=== PATIENT | female | born 1945 | race Caucasian/White ===

== ENCOUNTER → 2016-12-26 | Outpatient (CLI) | payer MEDICARE, BC ==
[~2016-12-26] MED LIST: /PREG50CA PO; /WARF25TA PO; ACET500T37 PO; ALBU17IN INH; AMLO5TAB2 PO; ANUC25SU PR; ASPI1TAB PO; CALCTAB54 PO; CICL8KIT3 TOP; COLACE PO; DURE0.055 OP; ESTR625TA PO; EXTR500C4 PO; FLECTOR PATCH TD; FLON0.054; GAVICHW PO; GLUCTAB6 PO; ILEV0.3D OP; LIPI10TA PO; LOSA100T PO; MELA5CAP3 PO; META800T82 PO; MULTTAB4 PO; NABU750T PO; NABUPOW PO; OMEP20CA3 PO; PERCOCET PO; PRAMIPEXOLE PO; PROC2.5C PR; ROXI1TAB2 PO; SINGULAIR PO; TOPR25TA PO; TRAMADOL PO; TRIA25CR TOP; TUMS500C PO; ULTR50TA PO; VENTAER INH; VITA-112 PO; VITA500T53 PO; VITA50TA35 PO; ZYRT10CA PO; [UNRECOGNIZED DRUG - CODE] PO; pain cream TD; vitamin B2 PO
--- NOTE | 2017-01-06 00:18 | ECWPNPC ---
PATIENT NAME: ALEJANDRO VELÁSQUEZ : 1945 GENDER: FEMALE VISIT DATE: 12/26/2016 DISCHARGE DATE: 12/26/16 1107 VISIT LOCKED DATE TIME: PHYSICIAN: BRAULIO NARAYANAN RESOURCE: BRAULIO NARAYANAN REASON FOR APPOINTMENT 1. BACK HISTORY OF PRESENT ILLNESS HISTORY OF PRESENT ILLNESS: HERE FOR F/U AND MANAGEMENT OF CHRONIC LBP. REPORTING AGGREVATION IN LBP PAST 2WKS.HAD >3MOS IMPROVEMENT IN LBP SINCE BILAT. LUMBAR FACET BLOCK IN JULY. RATING PAIN VAS 6/10.CURRENTLY USING LYRICA 50MG TID AND TRAMADOL 50MG 1-2 TAB PRN FOR SEVERE PAIN.FINDS THESE MEDICATION EFFECTIVE AT REDUCING PAIN AND KEEPING HER COMFORTAABLE.MRI L/S SPINE LAST DONE IN 2011 IS REVIEWED. PAIN THE PATIENT DESCRIBES THE PAIN... THE PATIENT DESCRIBES THE PAIN... THE PATIENT DESCRIBES THE PAIN... FALL RISK SCREENING: SCREENING :NO FALLS IN THE PAST YEAR CURRENT MEDICATIONS TAKING AMLODIPINE BESYLATE 5 MG TABLET 1 TABLET ORALLY ONCE A DAY TAKING CLINDAMYCIN HCL 300 MG CAPSULE 1 CAPSULE ORALLY DIRECTED TAKING LIPITOR 20 MG TABLET 1 TABLET ORALLY ONCE A DAY TAKING LOSARTAN POTASSIUM-HCTZ 50-12.5 MG TABLET 1 TABLET ORALLY ONCE A DAY TAKING METAXALONE 800 MG TABLET 1 TABLET ORALLY BEFORE BEDTIME TAKING OMEPRAZOLE 20 MG CAPSULE DELAYED RELEASE 1 TAB ORALLY ONCE DAILY TAKING PRAMIPEXOLE DIHYDROCHLORIDE 0.5 MG TABLET 1 TABLET BEFORE BEDTIME ORALLY ONCE A DAY TAKING PREMARIN 0.625 MG/GM CREAM VAGINAL DAILY TAKING SINGULAIR 10 MG TABLET 1 TABLET IN THE EVENING ORALLY ONCE A DAY TAKING VOLTAREN 1 % GEL TRANSDERMAL DIRECTED TAKING PRISCILLA-CITRATE PLUS VITAMIN D 650..500 TABLET 2 TABLETS ORALLY BID TAKING ZYRTEC 10 MG TABLET 1 TABLET ORALLY ONCE A DAY TAKING COLACE 100 MG CAPSULE 1 CAPSULE NEEDED ORALLY ONCE A DAY TAKING MELATONIN 3 MG TABLET 1 TABLET AT BEDTIME NEEDED WITH FOOD ORALLY ONCE A DAY TAKING VITAMIN B-2 25 MG TABLET 2 ORALLY BID TAKING VITAMIN D-3 1000 UNIT CAPSULE 1 CAPSULE ORALLY ONCE A DAY TAKING VITAMIN B 12 250 MCG 2 TABLET ORALLY ONCE DAILY, NOTES: 07/23/16@0900 TAKING ALBUTEROL-IPRATROPIUM 2.5-0.5 MG/3ML SOLUTION 3 ML INHALATION FOUR TIMES A DAY TAKING ANUCORT-HC 25 MG SUPPOSITORY 1 SUPPOSITORY RECTAL TWICE A DAY NEEDED TAKING FLUTICASONE PROPIONATE 50 MCG/ACT SUSPENSION 1 SPRAY IN EACH NOSTRIL NASALLY ONCE A DAY NEEDED TAKING VENTOLIN HFA 108 (90 BASE) MCG/ACT AEROSOL SOLUTION 2 PUFFS NEEDED INHALATION EVERY 4 HRS TAKING PROCTOSOL HC 2.5 % CREAM 1 APPLICATION TO AFFECTED AREA RECTAL TWICE A DAY NEEDED, NOTES: 2 WEEKS AGO TAKING TRIAMCINOLONE ACETONIDE 0.1 % CREAM 1 APPLICATION TO AFFECTED AREA EXTERNALLY TWICE A DAY NEEDED TAKING GAVISCON 80-20 MG TABLET CHEWABLE 2 TABLETS AFTER MEALS AND AT BEDTIME NEEDED ORALLY FOUR TIMES A DAY, NOTES: 2 WEEKS AGO TAKING TYLENOL EXTRA STRENGTH 500 MG TABLET 2 TABLETS NEEDED ORALLY EVERY 6 HRS NEEDED, NOTES: 1 WEEK AGO TAKING GLUCOSAMINE CHONDR 500 COMPLEX - CAPSULE ORALLY BID, NOTES: 07/23/16@2200 TAKING ONDANSETRON HCL 8 MG TABLET 1 TABLET ORALLY TID PRN, NOTES: 4-5 DAYS AGO TAKING LYRICA 50 MG CAPSULE 1 CAPSULE ORALLY Q8H TID MDD3 3 MOS SUPPLY CAT D CHRONIC PAIN, NOTES: 07/24/16@0700 TAKING TRAMADOL HCL 50 MG TABLET 1 ORALLY Q6H PRN PAIN MDD4,3MOS SUPPLY CATD CHRONIC PAIN, NOTES: 07/23/16@1200 TAKING LYRICA 50 MG CAPSULE 1 CAPSULE ORALLY THREE TIMES A DAY TAKING QVAR 80 MCG/ACT AEROSOL SOLUTION 1 PUFF INHALATION TWICE A DAY NOT-TAKING TRAMADOL HCL 50 MG TABLET 1 TABLET NEEDED ORALLY EVERY 6 HRS PRN MDD4 NOT-TAKING VALIUM 10 MG TABLET 1 ORALLY 1 TAB 1HR PRE PROC. MDD1, NOTES: 07/24/16@0930 NOT-TAKING OXYCODONE HCL 5 MG TABLET 2 ORALLY 2 TAB 1HR PRE PROC. MDD2, NOTES: 07/24/16@0930 MEDICATION LIST REVIEWED AND RECONCILED WITH THE PATIENT PAST MEDICAL HISTORY HTN HYPERCHOLESTREMIA FIBROMYALGIA RESTLESS LEG SYNDROME OSTEOARTHRITIS SEASONAL ALLERGIES ALLERGIES PENICILLIN (FOR ALLERGIES USE ONLY): HIVES BELLARGAL: RASH BETA JEANNE (FOR ALLERGIES USE ONLY): DYSPNEA CORTICOSTEROIDS SUPPORT: CONTRAINDICATION ERGOT ALKALOIDS: NAUSEA/VOMITING SURGICAL HISTORY TUBALIGATION 03/17/75 OVARIAN CYST 02/28/81 LAPROSCOPY,LAPAROTOMY ,BILATERAL CSTECTOMY 07/09/93 EUA,COLPOSCOPY, LASER VAORIZATION OF THE VAGINA 06/22/98 EUA COLPOOSCOPY, REMOVAL OF VAGINAL CUFF &REPAIR 03/22/99 GALL BLADDER REMOVAL 05/21 ARTHROSCOPIC KNEE SURGERY 12/24 TOTAL RIGHT KNEE REPLACEMENT 03/11/13 HOSPITALIZATION/MAJOR DIAGNOSTIC PROCEDURE [place], HEART ATTACK CAUSED BY STRESS 2013 HYPERTENSION 10/2015 BRONCHITIS & PNEUMO 10/2016 REVIEW OF SYSTEMS CONSTITUTIONAL: ANY CHANGE IN YOUR MEDICAL CONDITION? NO. PT REPORTS LUMBAR FACET BLOCK 09/2015 WITH COMPLETE PAIN RELIEF X 4 MONTHS. PT REPORTS PAIN HAS INCREASED OVER TIME TO 01/24. . CHILLS NO . FEVER NO . INFECTION: DO YOU HAVE NEW INFECTIONS? NO . DO YOU HAVE HISTORY OF MRSA? NO . MUSCULOSKELETAL: ANY NEW PATTERNS OF PAIN OR NUMBNESS? NO . GASTROENTEROLOGY: ANY NEW CHANGE IN BOWEL CONTROL? NO . GENITOURINARY: ANY NEW CHANGE IN BLADDER CONTROL? NO . IS THERE A CHANCE YOU COULD BE ? NO . HEMATOLOGY/LYMPH: DO YOU TAKE ANY BLOOD THINNERS? (FOR EXAMPLE- COUMADIN, PLAVIX, AGGRENOX, PLATEL, PRADAXA, OR XARELTO) NO . WHEN WAS YOUR LAST DOSE? DATE: TIME: . NEUROLOGY: HAVE YOU FALLEN IN THE PAST 6 MONTHS? NO . ANY NEW EXTREMITY NUMBNESS OR WEAKNESS? NO . CARDIOLOGY: DO YOU HAVE A PACEMAKER OR DEFIBRILLATOR? NO . RESPIRATORY: HAVE YOU BEEN SICK IN THE PAST WEEK? NO . FEVER NO . FLU LIKE SYMPTOMS? NO . COUGH NO . INTEGUMENTARY: DO YOU HAVE ANY RASHES OR OPEN SORES? NO . ALLERGIC/IMMUNO: ARE YOU ALLERGIC TO SHELLFISH OR IV DYE? NO . ANY NEW ALLERGIES? NO . PSYCHIATRIC: DO YOU HAVE THOUGHTS OF HURTING YOURSELF OR SOMEONE ELSE? NO . ARE YOU ABUSED, NEGLECTED, OR IN AN UNSAFE ENVIRONMENT? NO . ENDOCRINOLOGY: ARE YOU DIABETIC? NO . OTHER: DO YOU NEED ANY PRESCRIPTIONS? YES . IF YES, PLEASE LIST: TRAMADOL . ANY NEW PROBLEMS WITH YOUR MEDICATIONS? NO . WHEN DID YOU LAST EAT? ____ . WHEN DID YOU LAST DRINK? ____ . WHAT DID YOU LAST DRINK? ____ . NAME OF PERSON DRIVING YOU HOME? ____ . DO YOU HAVE ANY OTHER QUESTIONS OR CONCERNS NO . REVIEWED BY: PROVIDER: BRAULIO RIZO . VITAL SIGNS WT 136.0 LBS, HT 62 IN, BMI 24.87 INDEX, BP 143/69 MM HG, HR 70 /MIN, RR 16 /MIN, TEMP 98.5 F, OXYGEN SAT % 97%, NA INITIALS TL 1016. EXAMINATION GENERAL EXAMINATION: LUNGS:LUNG SOUNDS ARE CLEAR. HEART:HEART RATE REGULAR. MUSCULOSKELETAL:*, MUSCLE STRENGTH TESTING 5/5 BILATERAL., PALPATION: MILD DISCOMFORT OVER L/S SPINE. POSITIVE FOR PAIN OVER L/S PARSPINALS/FACETS. DIAGNOSTIC:MRI-L/S-2011-DISC DISPLACEMENT L2/3 AND L3/4.L4/5 BULGING DISC W CENTRAL STENOSIS -MILD.. ASSESSMENTS LUMBOSACRAL SPONDYLOLYSIS - M43.07 (PRIMARY) CHRONIC PRESCRIPTION OPIATE USE - Z79.891 OTHER CHRONIC PAIN - G89.29 PAIN IN THORACIC SPINE - M54.6 TREATMENT LUMBOSACRAL SPONDYLOLYSIS CONTINUE LYRICA CAPSULE, 50 MG, 1 CAPSULE, ORALLY, THREE TIMES A DAY CONTINUE TRAMADOL HCL TABLET, 50 MG, 1 TABLET NEEDED, ORALLY, EVERY 6 HRS PRN MDD4 [facility] MRI SPINE, L.S. WITHOUT [id number] [facility] MRI SPINE,THORACIC WITHOUT [id number] PROCEDURE CODES FA211 ESTABILISHED PATIENT [facility] FACILITY CHARGE G8730 PAIN ASSESS POS TOOL F/U PLAN DOC G8427 DOC MEDS VERIFIED W/PT OR RE DISPOSITION & COMMUNICATION FOLLOW UP 2 WEEKS (REASON: MRI THORACIC AND LUMBAR) ELECTRONICALLY SIGNED BY DARRIUS OKEEFE ON 01/05/2017 AT 09:32 AM EDT DISCLAIMER : THIS IS A VISIT SUMMARY EXTRACTED FROM THE [employer] CHART. IT IS NOT A COPY OF THE [employer] PROGRESS NOTE. MERRILL
== END ==
LOC: M PAIN 10:00
PROVIDERS: ATTEND Nurse Practitioner Family
DX: G89.29 Other chronic pain (principal); M43.07 Spondylolysis, lumbosacral region; M54.6 Pain in thoracic spine; I10 Essential (primary) hypertension; E78.00 Pure hypercholesterolemia, unspecified; M79.7 Fibromyalgia; G25.81 Restless legs syndrome; M19.90 Unspecified osteoarthritis, unspecified site; J30.2 Other seasonal allergic rhinitis; Z88.0 Allergy status to penicillin; Z88.8 Allergy status to other drugs, medicaments and biological substances; Z79.51 Long term (current) use of inhaled steroids; Z79.891 Long term (current) use of opiate analgesic; Z79.899 Other long term (current) drug therapy

== ENCOUNTER → 2016-12-30 | Outpatient (CLI) | payer MEDICARE, BC ==
--- NOTE | 2016-12-30 16:43 | REP ---
MRI THORACIC SPINE WITHOUT CONTRAST: 12/30/2016. Comparison: X-ray 06/25/2011. Clinical history: Back pain. Technique sagittal T1, T2 and STIR images with axial T1 sequences. A marker placed at T2-T3 level, position confirmed by cervical thoracic underwriting technician. The sagittal images show a normal gentle thoracic kyphosis. Vertebral body heights and marrow signal are normal throughout the disc space heights show only minimal narrowing of some upper thoracic levels, particularly TE 04/05 with loss of disc water signal from T1-2 through T8-9, less at T9-10 and T10-11. No intrinsic signal abnormality, syrinx, atrophy or mass in the cord. Conus terminates at T12. From C7-T1 through T12-L1. There was no disc bulge herniation and no spinal or foraminal stenosis. No intrinsic cord signal abnormality, syrinx, atrophy or mass. Impression: 1. Minimal degenerative changes with disc desiccation and disc space narrowing without disc bulge herniation and no spinal or foraminal stenosis. 2. No compression deformity in the spine. Signed by Issac Juan MD 12/30/2016 04:35 P
--- NOTE | 2016-12-30 17:08 | REP ---
MRI LUMBAR SPINE WITHOUT CONTRAST: 12/30/2016: CLINICAL HISTORY: Low back pain. Lumbosacral spondylosis. COMPARISON: 02/06/2012 MRI, 12/31/2011 x-ray. TECHNIQUE: Sagittal T1, T2 and STIR images with axial T1-T2 sequences provided. FINDINGS: The normal gentle lordosis lumbar spine is maintained on the sagittal images. There is discogenic endplate change and disc space narrowing at L2-3 and L4-5 with the other vertebral bodies showing normal marrow signal throughout. There is slight narrowing at the L1-2 and L3-4 level. All lumbar levels show loss of disc water signal. The L5-S1 disc height is normal. T11-12 and T12-L1 disc levels are intact. Conus terminates midbody of L1. The T11-12, T12-L1 and L1-2 disc levels show no disc bulge herniation and no spinal or foraminal stenosis. At L2-3 there is a broad-based disc bulge extending into the foramina. No nerve root compression in those foramina. Some posterior osteophytic ridging is noted on the sagittal images. All this is unchanged. At L3-4 there is a mild disc bulge with some ligamentum flavum and facet hypertrophy. There is some loss of perineural fat on the left compared to the right, but no nerve root compression of the L3 roots. At L4-L5 broad-based disc bulge with ligamentum flavum and facet hypertrophy. Marginal osteophytes are also noted, left greater than right. There is foraminal encroachment of the L4 root with some compression in the foramina and the left foramen of that root while the right foramen shows slight loss of perineural fat but no nerve root compression. L5, S1, there is mild broad-based disc bulge, ligamentum and facet hypertrophy. I do not see nerve root compression. The loss of perineural fat on both sides is evident and stable. No prevertebral soft tissue mass or other significant findings. IMPRESSION: 1. Degenerative disc disease and central canal with disc bulging with disc osteophyte complex at L4-5 and bilateral foraminal disc bulges with nerve root compression of the left L4 nerve root with a right marginally adequate. 2. The L2-3, L3-4, and L5-S1 levels also show disc bulges without significant central canal stenosis. Foramina are adequate. Signed by Issac Juan MD 12/31/2016 12:24 P
== END ==
LOC: M RAD 15:12
PROVIDERS: ATTEND Nurse Practitioner Family
DX: M48.07 Spinal stenosis, lumbosacral region (principal); M51.26 Other intervertebral disc displacement, lumbar region; M51.27 Other intervertebral disc displacement, lumbosacral region; M51.34 Other intervertebral disc degeneration, thoracic region

== ENCOUNTER → 2016-12-31 | Outpatient (CLI) | payer MEDICARE, BC ==
--- NOTE | 2017-01-21 01:38 | ECWPNPC ---
PATIENT NAME: ALEJANDRO VELÁSQUEZ : 1945 GENDER: FEMALE VISIT DATE: 12/31/2016 DISCHARGE DATE: 12/31/16 1436 VISIT LOCKED DATE TIME: PHYSICIAN: BRAULIO NARAYANAN RESOURCE: BRAULIO NARAYANAN REASON FOR APPOINTMENT 1. POST MRI HISTORY OF PRESENT ILLNESS HISTORY OF PRESENT ILLNESS: HERE TO REVIEW MRI L/S SPINE AND THORACIC SPINE.SHOWING MILD DEGENERATIVE CHANGES OVER THORACIC AND MODERATE FACET ARTHROPATHY OVER L/S SPINE.RATING PAIN VAS 7/10.DESCRIBES PAIN CONSTANT ACHING ACROSS LOW BACK.PAIN IS AGGREVATED BY PROLONGED SITTING AND STANDING.RELIEVED SOMEWHAT WITH REST.HAS RESPONDED WELL TO THERAPEUTIC FACET BLOCKS IN PAST. PAIN THE PATIENT DESCRIBES THE PAIN... FALL RISK SCREENING: SCREENING :NO FALLS IN THE PAST YEAR CURRENT MEDICATIONS TAKING AMLODIPINE BESYLATE 5 MG TABLET 1 TABLET ORALLY ONCE A DAY TAKING CLINDAMYCIN HCL 300 MG CAPSULE 1 CAPSULE ORALLY DIRECTED TAKING LIPITOR 20 MG TABLET 1 TABLET ORALLY ONCE A DAY TAKING LOSARTAN POTASSIUM-HCTZ 50-12.5 MG TABLET 1 TABLET ORALLY ONCE A DAY TAKING METAXALONE 800 MG TABLET 1 TABLET ORALLY BEFORE BEDTIME TAKING OMEPRAZOLE 20 MG CAPSULE DELAYED RELEASE 1 TAB ORALLY ONCE DAILY TAKING PRAMIPEXOLE DIHYDROCHLORIDE 0.5 MG TABLET 1 TABLET BEFORE BEDTIME ORALLY ONCE A DAY TAKING PREMARIN 0.625 MG/GM CREAM VAGINAL DAILY TAKING SINGULAIR 10 MG TABLET 1 TABLET IN THE EVENING ORALLY ONCE A DAY TAKING VOLTAREN 1 % GEL TRANSDERMAL DIRECTED TAKING PRISCILLA-CITRATE PLUS VITAMIN D 650..500 TABLET 2 TABLETS ORALLY BID TAKING ZYRTEC 10 MG TABLET 1 TABLET ORALLY ONCE A DAY TAKING COLACE 100 MG CAPSULE 1 CAPSULE NEEDED ORALLY ONCE A DAY TAKING MELATONIN 3 MG TABLET 1 TABLET AT BEDTIME NEEDED WITH FOOD ORALLY ONCE A DAY TAKING VITAMIN B-2 25 MG TABLET 2 ORALLY BID TAKING VITAMIN D-3 1000 UNIT CAPSULE 1 CAPSULE ORALLY ONCE A DAY TAKING VITAMIN B 12 250 MCG 2 TABLET ORALLY ONCE DAILY, NOTES: 07/23/16@0900 TAKING ALBUTEROL-IPRATROPIUM 2.5-0.5 MG/3ML SOLUTION 3 ML INHALATION FOUR TIMES A DAY TAKING ANUCORT-HC 25 MG SUPPOSITORY 1 SUPPOSITORY RECTAL TWICE A DAY NEEDED TAKING FLUTICASONE PROPIONATE 50 MCG/ACT SUSPENSION 1 SPRAY IN EACH NOSTRIL NASALLY ONCE A DAY NEEDED TAKING VENTOLIN HFA 108 (90 BASE) MCG/ACT AEROSOL SOLUTION 2 PUFFS NEEDED INHALATION EVERY 4 HRS TAKING PROCTOSOL HC 2.5 % CREAM 1 APPLICATION TO AFFECTED AREA RECTAL TWICE A DAY NEEDED, NOTES: 2 WEEKS AGO TAKING TRIAMCINOLONE ACETONIDE 0.1 % CREAM 1 APPLICATION TO AFFECTED AREA EXTERNALLY TWICE A DAY NEEDED TAKING GAVISCON 80-20 MG TABLET CHEWABLE 2 TABLETS AFTER MEALS AND AT BEDTIME NEEDED ORALLY FOUR TIMES A DAY, NOTES: 2 WEEKS AGO TAKING TYLENOL EXTRA STRENGTH 500 MG TABLET 2 TABLETS NEEDED ORALLY EVERY 6 HRS NEEDED, NOTES: 1 WEEK AGO TAKING GLUCOSAMINE CHONDR 500 COMPLEX - CAPSULE ORALLY BID, NOTES: 07/23/16@2200 TAKING ONDANSETRON HCL 8 MG TABLET 1 TABLET ORALLY TID PRN, NOTES: 4-5 DAYS AGO TAKING LYRICA 50 MG CAPSULE 1 CAPSULE ORALLY Q8H TID MDD3 3 MOS SUPPLY CAT D CHRONIC PAIN, NOTES: 07/24/16@0700 TAKING TRAMADOL HCL 50 MG TABLET 1 ORALLY Q6H PRN PAIN MDD4,3MOS SUPPLY CATD CHRONIC PAIN, NOTES: 07/23/16@1200 TAKING QVAR 80 MCG/ACT AEROSOL SOLUTION 1 PUFF INHALATION TWICE A DAY TAKING LYRICA 50 MG CAPSULE 1 CAPSULE ORALLY THREE TIMES A DAY TAKING TRAMADOL HCL 50 MG TABLET 1 TABLET NEEDED ORALLY EVERY 6 HRS PRN MDD4 NOT-TAKING VALIUM 10 MG TABLET 1 ORALLY 1 TAB 1HR PRE PROC. MDD1, NOTES: 07/24/16@0930 NOT-TAKING OXYCODONE HCL 5 MG TABLET 2 ORALLY 2 TAB 1HR PRE PROC. MDD2, NOTES: 07/24/16@0930 MEDICATION LIST REVIEWED AND RECONCILED WITH THE PATIENT PAST MEDICAL HISTORY HTN HYPERCHOLESTREMIA FIBROMYALGIA RESTLESS LEG SYNDROME OSTEOARTHRITIS SEASONAL ALLERGIES ALLERGIES PENICILLIN (FOR ALLERGIES USE ONLY): HIVES BELLARGAL: RASH BETA JEANNE (FOR ALLERGIES USE ONLY): DYSPNEA CORTICOSTEROIDS SUPPORT: CONTRAINDICATION ERGOT ALKALOIDS: NAUSEA/VOMITING SURGICAL HISTORY TUBALIGATION 03/17/75 OVARIAN CYST 02/28/81 LAPROSCOPY,LAPAROTOMY ,BILATERAL CSTECTOMY 07/09/93 EUA,COLPOSCOPY, LASER VAORIZATION OF THE VAGINA 06/22/98 EUA COLPOOSCOPY, REMOVAL OF VAGINAL CUFF &REPAIR 03/22/99 GALL BLADDER REMOVAL 05/21 ARTHROSCOPIC KNEE SURGERY 12/24 TOTAL RIGHT KNEE REPLACEMENT 03/11/13 HOSPITALIZATION/MAJOR DIAGNOSTIC PROCEDURE [place], HEART ATTACK CAUSED BY STRESS 2013 HYPERTENSION 10/2015 BRONCHITIS & PNEUMO 10/2016 REVIEW OF SYSTEMS CONSTITUTIONAL: ANY CHANGE IN YOUR MEDICAL CONDITION? NO . CHILLS NO . FEVER NO . INFECTION: DO YOU HAVE NEW INFECTIONS? NO . DO YOU HAVE HISTORY OF MRSA? NO . MUSCULOSKELETAL: ANY NEW PATTERNS OF PAIN OR NUMBNESS? NO. PT STATES LAST FACET BLOCK DONE IN 07/2016 GAVE PAIN RELIEF UNTIL 11/2016. CURRENTLY PAIN IS 02/23. . GASTROENTEROLOGY: ANY NEW CHANGE IN BOWEL CONTROL? NO . GENITOURINARY: ANY NEW CHANGE IN BLADDER CONTROL? NO . IS THERE A CHANCE YOU COULD BE ? NO . HEMATOLOGY/LYMPH: DO YOU TAKE ANY BLOOD THINNERS? (FOR EXAMPLE- COUMADIN, PLAVIX, AGGRENOX, PLATEL, PRADAXA, OR XARELTO) NO . WHEN WAS YOUR LAST DOSE? DATE: TIME: . NEUROLOGY: HAVE YOU FALLEN IN THE PAST 6 MONTHS? NO . ANY NEW EXTREMITY NUMBNESS OR WEAKNESS? NO . CARDIOLOGY: DO YOU HAVE A PACEMAKER OR DEFIBRILLATOR? NO . RESPIRATORY: HAVE YOU BEEN SICK IN THE PAST WEEK? NO . FEVER NO . FLU LIKE SYMPTOMS? NO . COUGH NO . INTEGUMENTARY: DO YOU HAVE ANY RASHES OR OPEN SORES? NO . ALLERGIC/IMMUNO: ARE YOU ALLERGIC TO SHELLFISH OR IV DYE? NO . ANY NEW ALLERGIES? NO . PSYCHIATRIC: DO YOU HAVE THOUGHTS OF HURTING YOURSELF OR SOMEONE ELSE? NO . ARE YOU ABUSED, NEGLECTED, OR IN AN UNSAFE ENVIRONMENT? NO . ENDOCRINOLOGY: ARE YOU DIABETIC? NO . OTHER: DO YOU NEED ANY PRESCRIPTIONS? NO . IF YES, PLEASE LIST: ____ . ANY NEW PROBLEMS WITH YOUR MEDICATIONS? NO . WHEN DID YOU LAST EAT? ____ . WHEN DID YOU LAST DRINK? ____ . WHAT DID YOU LAST DRINK? ____ . NAME OF PERSON DRIVING YOU HOME? ____ . DO YOU HAVE ANY OTHER QUESTIONS OR CONCERNS NO . REVIEWED BY: PROVIDER: BRAULIO RIZO . VITAL SIGNS WT 137.0 LBS, HT 62 IN, BMI 25.05 INDEX, BP 125/66 MM HG, HR 75 /MIN, RR 16 /MIN, TEMP 98.1 F, OXYGEN SAT % 93%, SAFE IN ENV? (Y/N) Y, NA INITIALS TL 1338, REVIEWED BY: SHELLIE. EXAMINATION GENERAL EXAMINATION: LUNGS:LUNG SOUNDS ARE CLEAR. HEART:HEART RATE REGULAR. MUSCULOSKELETAL:*, MUSCLE STRENGTH TESTING 5/5 BILATERAL., PALPATION: + FOR PAIN OVER L/S SPINE. + FOR PAIN OVER L/S PARSPINALS. DIAGNOSTIC:MRI-L/U-[id number]-REVIEWED. ASSESSMENTS LUMBOSACRAL SPONDYLOLYSIS - M43.07 (PRIMARY) CHRONIC PRESCRIPTION OPIATE USE - Z79.891 OTHER CHRONIC PAIN - G89.29 PAIN IN THORACIC SPINE - M54.6 TREATMENT LUMBOSACRAL SPONDYLOLYSIS NOTES: I AM GOING TO REQUEST BILATERAL L4/5-L5/S1 THERAPEUTIC LUMBAR FACET BLOCK. PROCEDURE CODES FA211 ESTABILISHED PATIENT [facility] FACILITY CHARGE G8730 PAIN ASSESS POS TOOL F/U PLAN DOC G8427 DOC MEDS VERIFIED W/PT OR RE DISPOSITION & COMMUNICATION FOLLOW UP 2WK POST (REASON: I AM GOING TO REQUEST BILATERAL L4/5-L5/S1 THERAPEUTIC LUMBAR FACET BLOCK) ELECTRONICALLY SIGNED BY DARRIUS OKEEFE ON 01/20/2017 AT 05:13 PM EDT DISCLAIMER : THIS IS A VISIT SUMMARY EXTRACTED FROM THE [employer] CHART. IT IS NOT A COPY OF THE [employer] PROGRESS NOTE. MERRILL
== END ==
LOC: M PAIN 14:00
PROVIDERS: ATTEND Nurse Practitioner Family
DX: G89.29 Other chronic pain (principal); M43.07 Spondylolysis, lumbosacral region; M54.6 Pain in thoracic spine; I10 Essential (primary) hypertension; E78.00 Pure hypercholesterolemia, unspecified; M79.7 Fibromyalgia; G25.81 Restless legs syndrome; M19.90 Unspecified osteoarthritis, unspecified site; J30.2 Other seasonal allergic rhinitis; Z88.5 Allergy status to narcotic agent; Z88.8 Allergy status to other drugs, medicaments and biological substances; Z79.899 Other long term (current) drug therapy

== ENCOUNTER → 2017-01-14 | Outpatient (CLI) | payer MEDICARE, BC ==
[~2017-01-14] MED LIST changes: +BUPIVACAINE HCL 0.25% 30 ML VIAL As Ordered ONE; +ISOVUE-M 300 61% 15ML VIAL (Q9967) As Ordered ONE; +LIDOCAINE 1% SDV INJ 30 ML VIAL As Ordered ONE; +TRIAMCINOLONE ACETONIDE SUSP 40 MG/ML VIAL (J3301) As Ordered ONE; +diazePAM 5 MG TAB As Ordered ONE; +oxyCODONE 5MG TAB As Ordered ONE
--- NOTE | 2017-01-14 17:45 | REP ---
FACET BLOCK: The images were reviewed with Dr. Sesay. The patient has a history of back pain and spondylosis. The portable C-ARM was provided in the OR for Dr. Dejesus for fluoroscopic guidance. 4 intraoperative fluoroscopic spot films were obtained for needle placement verification for bilateral lumbar facet injection. The films are on the PACs system and are available for review. 28 seconds of fluoroscopic time was utilized for this procedure. Reviewed by STEVE Villalobos 01/15/2017 08:28 AEdited and Signed by Nathan Sesay MD 01/15/2017 07:21 P
--- NOTE | 2017-01-18 23:33 | ECWPNPC ---
PATIENT NAME: ALEJANDRO VELÁSQUEZ : 1945 GENDER: FEMALE VISIT DATE: 01/14/2017 DISCHARGE DATE: 01/14/17 1052 VISIT LOCKED DATE TIME: PHYSICIAN: ADRIANA MURRAY RESOURCE: ADRIANA MURRAY REASON FOR APPOINTMENT 1. FACET HISTORY OF PRESENT ILLNESS HISTORY OF PRESENT ILLNESS: PAIN THE PATIENT DESCRIBES THE PAIN... FALL RISK SCREENING: SCREENING :NO FALLS IN THE PAST YEAR CURRENT MEDICATIONS TAKING AMLODIPINE BESYLATE 5 MG TABLET 1 TABLET ORALLY ONCE A DAY, NOTES: 01/13/17@0900 TAKING CLINDAMYCIN HCL 300 MG CAPSULE 1 CAPSULE ORALLY DIRECTED, NOTES: 1 MONTH AGO TAKING LIPITOR 20 MG TABLET 1 TABLET ORALLY ONCE A DAY, NOTES: 01/13/17@0900 TAKING LOSARTAN POTASSIUM-HCTZ 50-12.5 MG TABLET 1 TABLET ORALLY ONCE A DAY, NOTES: 01/13/17@0900 TAKING METAXALONE 800 MG TABLET 1 TABLET ORALLY BEFORE BEDTIME, NOTES: 01/13/17@2200 TAKING OMEPRAZOLE 20 MG CAPSULE DELAYED RELEASE 1 TAB ORALLY ONCE DAILY, NOTES: 0600 TAKING PRAMIPEXOLE DIHYDROCHLORIDE 0.5 MG TABLET 1 TABLET BEFORE BEDTIME ORALLY ONCE A DAY, NOTES: 01/13/17@1800 TAKING SINGULAIR 10 MG TABLET 1 TABLET IN THE EVENING ORALLY ONCE A DAY, NOTES: 01/13/17@0900 TAKING VOLTAREN 1 % GEL TRANSDERMAL DIRECTED, NOTES: 2 DAYS AGO TAKING PRISCILLA-CITRATE PLUS VITAMIN D 650..500 TABLET 2 TABLETS ORALLY BID, NOTES: 01/13/17@0900 TAKING ZYRTEC 10 MG TABLET 1 TABLET ORALLY ONCE A DAY, NOTES: 01/13/17@0900 TAKING COLACE 100 MG CAPSULE 1 CAPSULE NEEDED ORALLY ONCE A DAY, NOTES: 01/13/17@2200 TAKING ALBUTEROL-IPRATROPIUM 2.5-0.5 MG/3ML SOLUTION 3 ML INHALATION FOUR TIMES A DAY, NOTES: 1 YEAR AGO TAKING ANUCORT-HC 25 MG SUPPOSITORY 1 SUPPOSITORY RECTAL TWICE A DAY NEEDED, NOTES: 1 MONTH AGO TAKING FLUTICASONE PROPIONATE 50 MCG/ACT SUSPENSION 1 SPRAY IN EACH NOSTRIL NASALLY ONCE A DAY NEEDED, NOTES: 1 MONTH AGO TAKING VENTOLIN HFA 108 (90 BASE) MCG/ACT AEROSOL SOLUTION 2 PUFFS NEEDED INHALATION EVERY 4 HRS, NOTES: 2 DAYS AGO TAKING PROCTOSOL HC 2.5 % CREAM 1 APPLICATION TO AFFECTED AREA RECTAL TWICE A DAY NEEDED, NOTES: 2 WEEKS AGO TAKING TRIAMCINOLONE ACETONIDE 0.1 % CREAM 1 APPLICATION TO AFFECTED AREA EXTERNALLY TWICE A DAY NEEDED, NOTES: 3 MONTHS AGO TAKING GAVISCON 80-20 MG TABLET CHEWABLE 2 TABLETS AFTER MEALS AND AT BEDTIME NEEDED ORALLY FOUR TIMES A DAY, NOTES: 1 MONTH AGO TAKING TYLENOL EXTRA STRENGTH 500 MG TABLET 2 TABLETS NEEDED ORALLY EVERY 6 HRS NEEDED, NOTES: 2 DAYS AGO TAKING GLUCOSAMINE CHONDR 500 COMPLEX - CAPSULE ORALLY BID, NOTES: 01/13/17@0900 TAKING ONDANSETRON HCL 8 MG TABLET 1 TABLET ORALLY TID PRN, NOTES: 1 MONTH AGO TAKING LYRICA 50 MG CAPSULE 1 CAPSULE ORALLY Q8H TID MDD3 3 MOS SUPPLY CAT D CHRONIC PAIN, NOTES: 01/13/17@2200 TAKING TRAMADOL HCL 50 MG TABLET 1 ORALLY Q6H PRN PAIN MDD4,3MOS SUPPLY CATD CHRONIC PAIN, NOTES: 01/13/17@2199 TAKING QVAR 80 MCG/ACT AEROSOL SOLUTION 1 PUFF INHALATION TWICE A DAY, NOTES: 0700 TAKING LYRICA 50 MG CAPSULE 1 CAPSULE ORALLY THREE TIMES A DAY, NOTES: 01/13/17@2199 NOT-TAKING VALIUM 10 MG TABLET 1 ORALLY 1 TAB 1HR PRE PROC. MDD1, NOTES: 07/24/16@0930 NOT-TAKING OXYCODONE HCL 5 MG TABLET 2 ORALLY 2 TAB 1HR PRE PROC. MDD2, NOTES: 07/24/16@0930 DISCONTINUED PREMARIN 0.625 MG/GM CREAM VAGINAL DAILY DISCONTINUED MELATONIN 3 MG TABLET 1 TABLET AT BEDTIME NEEDED WITH FOOD ORALLY ONCE A DAY DISCONTINUED VITAMIN B-2 25 MG TABLET 2 ORALLY BID DISCONTINUED VITAMIN D-3 1000 UNIT CAPSULE 1 CAPSULE ORALLY ONCE A DAY DISCONTINUED VITAMIN B 12 250 MCG 2 TABLET ORALLY ONCE DAILY, NOTES: 07/23/16@0900 DISCONTINUED TRAMADOL HCL 50 MG TABLET 1 TABLET NEEDED ORALLY EVERY 6 HRS PRN MDD4 MEDICATION LIST REVIEWED AND RECONCILED WITH THE PATIENT PAST MEDICAL HISTORY HTN HYPERCHOLESTREMIA FIBROMYALGIA RESTLESS LEG SYNDROME OSTEOARTHRITIS SEASONAL ALLERGIES ALLERGIES PENICILLIN (FOR ALLERGIES USE ONLY): HIVES BELLARGAL: RASH BETA JEANNE (FOR ALLERGIES USE ONLY): DYSPNEA ERGOT ALKALOIDS: NAUSEA/VOMITING REVIEW OF SYSTEMS CONSTITUTIONAL: ANY CHANGE IN YOUR MEDICAL CONDITION? NO . CHILLS NO . FEVER NO . INFECTION: DO YOU HAVE NEW INFECTIONS? NO . DO YOU HAVE HISTORY OF MRSA? NO . MUSCULOSKELETAL: ANY NEW PATTERNS OF PAIN OR NUMBNESS? NO . GASTROENTEROLOGY: ANY NEW CHANGE IN BOWEL CONTROL? NO . GENITOURINARY: ANY NEW CHANGE IN BLADDER CONTROL? NO . IS THERE A CHANCE YOU COULD BE ? NO . HEMATOLOGY/LYMPH: DO YOU TAKE ANY BLOOD THINNERS? (FOR EXAMPLE- COUMADIN, PLAVIX, AGGRENOX, PLATEL, PRADAXA, OR XARELTO) NO . WHEN WAS YOUR LAST DOSE? DATE: TIME: . NEUROLOGY: HAVE YOU FALLEN IN THE PAST 6 MONTHS? NO . ANY NEW EXTREMITY NUMBNESS OR WEAKNESS? NO . CARDIOLOGY: DO YOU HAVE A PACEMAKER OR DEFIBRILLATOR? NO . RESPIRATORY: HAVE YOU BEEN SICK IN THE PAST WEEK? NO . FEVER NO . FLU LIKE SYMPTOMS? NO . COUGH NO . INTEGUMENTARY: DO YOU HAVE ANY RASHES OR OPEN SORES? NO . ALLERGIC/IMMUNO: ARE YOU ALLERGIC TO SHELLFISH OR IV DYE? NO . ANY NEW ALLERGIES? NO . PSYCHIATRIC: DO YOU HAVE THOUGHTS OF HURTING YOURSELF OR SOMEONE ELSE? NO . ARE YOU ABUSED, NEGLECTED, OR IN AN UNSAFE ENVIRONMENT? NO . ENDOCRINOLOGY: ARE YOU DIABETIC? NO . OTHER: DO YOU NEED ANY PRESCRIPTIONS? NO . IF YES, PLEASE LIST: ____ . ANY NEW PROBLEMS WITH YOUR MEDICATIONS? NO . WHEN DID YOU LAST EAT? ____01/13/17 . WHEN DID YOU LAST DRINK? ____45 . WHAT DID YOU LAST DRINK? ____BLACK COFFEE . NAME OF PERSON DRIVING YOU HOME? ____JORDEN VELÁSQUEZ . DO YOU HAVE ANY OTHER QUESTIONS OR CONCERNS NO . REVIEWED BY: PROVIDER: . VITAL SIGNS WT 137.0 LBS, HT 62 IN, BMI 25.05 INDEX, BP 170/74 MM HG, HR 61 /MIN, RR 16 /MIN, TEMP 98.0 F, OXYGEN SAT % 97%, NA INITIALS SC 09:16, REVIEWED BY: VD. ASSESSMENTS SPONDYLOSIS WITHOUT MYELOPATHY OR RADICULOPATHY, LUMBAR REGION - M47.816 (PRIMARY) SPONDYLOSIS WITHOUT MYELOPATHY OR RADICULOPATHY, LUMBOSACRAL REGION - M47.817 PROCEDURES PN LUMBAR FACET BLOCK THERAPEUTIC PRE PROCEDURE DIAGNOSIS LUMBAR SPONDYLOSIS, LUMBOSACRAL SPONDYLOSIS POST PROCEDURE DIAGNOSIS LUMBAR SPONDYLOSIS, LUMBOSACRAL SPONDYLOSIS PROCEDURE BILATERAL L4 - L5 AND BILATERAL L5-S1 LUMBAR FACET THERAPEUTIC BLOCK SURGEON DR. ADRIANA MURRAY CHAIR PAD MAKER NONE ANESTHESIA LOCAL PRE PROCEDURE NOTE THE PATIENT HAS A HISTORY OF CHRONIC LOW BACK PAIN. I EVALUATE THE PATIENT AND REVIEWED THE CHART. I WENT OVER THE RISKS, ALTERNATIVES, AND BENEFITS ASSOCIATED WITH THIS PROCEDURE. THE PATIENT WOULD LIKE TO PROCEED AND GIVE CONSENT TO PERFORMED THE PROCEDURE. THE PATIENT DENIES UNEXPLAINABLE WEIGHT LOSS, FEVER, CHILLS, OR NEW CHANGES IN URINARY OR BOWEL CONTROL DESCRIPTION OF PROCEDURE THE PATIENT WAS BROUGHT TO THE PROCEDURE ROOM AND PLACED IN THE PRONE POSITION. THE LUMBOSACRAL AREA WAS CLEANED WITH CHLORAPREP SOLUTION AND DRAPED ASEPTICALLY. THE PROCEDURE WAS DONE UNDER STERILE CONDITIONS. I CHECKED LATERALITY AND THE LEVEL WHERE THE PROCEDURE WAS GOING TO BE PERFORMED WITH THE PATIENT AND THE SUPPORTING STAFF AT THE MOMENT OF THE TIME OUT IN THE PROCEDURE ROOM. UNDER FLUOROSCOPIC GUIDANCE, THE TARGET POINT WAS SELECTED AT THE RIGHT AND LEFT L4-L5 AND RIGHT AND LEFT L5-S1 FACET JOINT. TARGET POINT WAS SELECTED AFTER LATERAL ROTATION AND TILT OF THE MAGNIFIER OF THE C-ARM. LIDOCAINE 0.5% WAS USED TO NUMB THE SKIN AND THE SUBCUTANEOUS TISSUE BELOW IT. SPINAL NEEDLES, 22-GAUGE, WERE ADVANCED UNDER FLUOROSCOPIC GUIDANCE AND FOLLOWING PATIENT FEEDBACK UNTIL THE TARGETS WERE TOUCHED. THE POSITION OF THE NEEDLES WAS VERIFIED WITH AP AND LATERAL VIEWS. AFTER PROPER POSITION OF THE NEEDLES WAS ACHIEVED, ISOVUE-M DYE 30% 0.1 ML WAS INJECTED SHOWING ADEQUATE SPREAD OF THE DYE. THEN A SOLUTION OF 1.9 ML OF BUPIVACAINE 0.125% OF KENALOG 10 MG WAS INJECTED AT EACH SITE. THERE WAS NO EVIDENCE OF BLOOD, PARESTHESIA OR CEREBROSPINAL FLUID DURING THE PROCEDURE. THE PATIENT WAS SENT TO THE RECOVERY ROOM. THE PATIENT WAS MOVING THE EXTREMITIES AND DOING WELL. THERE WAS NO COMPLICATION DURING THE PROCEDURE. FLUOROSCOPY TIME WAS 28 SECONDS POST PROCEDURE NOTE THE PATIENT WILL BE SEEN IN A FOLLOW UP IN THE NEXT FEW WEEKS. INSTRUCTIONS WERE GIVEN, QUESTIONS WERE ANSWERED, AND THE PATIENT EXPRESSED UNDERSTANDING AND AGREES WITH THE PLAN. I, DENISHA VILLARREAL, DOCUMENTED THE ABOVE INFORMATION ACTING A SCRIBE FOR DR. MURRAY. I HAVE REVIEWED THE ABOVE DOCUMENT, WRITTEN BY DENISHA BELLAMY AND I VERIFY THAT IT IS ACCURATE DIAGNOSTIC [facility] FACET BLOCK (PAIN)[id number] PROCEDURE CODES 33900 INJ PARAVERT F JNT L/S 1 LEV 84150 INJ PARAVERT F JNT L/S 2 LEV 6045F RADXPS IN END [id number] PXD DISPOSITION & COMMUNICATION FOLLOW UP 3 WEEKS ELECTRONICALLY SIGNED BY ADRIANA MURRAY MD ON 01/18/2017 AT 05:26 PM EDT DISCLAIMER : THIS IS A VISIT SUMMARY EXTRACTED FROM THE [employer] CHART. IT IS NOT A COPY OF THE [employer] PROGRESS NOTE. MTDD
== END ==
LOC: M PAIN 09:00
PROVIDERS: ATTEND Anesthesiology
DX: G89.29 Other chronic pain (principal); M47.816 Spondylosis without myelopathy or radiculopathy, lumbar region; M47.817 Spondylosis without myelopathy or radiculopathy, lumbosacral region; I10 Essential (primary) hypertension; E78.00 Pure hypercholesterolemia, unspecified; M79.7 Fibromyalgia; G25.81 Restless legs syndrome; M19.90 Unspecified osteoarthritis, unspecified site; J30.2 Other seasonal allergic rhinitis; Z88.0 Allergy status to penicillin; Z88.8 Allergy status to other drugs, medicaments and biological substances; Z79.891 Long term (current) use of opiate analgesic; Z79.899 Other long term (current) drug therapy
CPT/HCPCS: 64493; 64494; J3301; Q9967

== ENCOUNTER → 2017-01-28 | Outpatient (CLI) | payer MEDICARE, BC ==
[~2017-01-28] MED LIST changes: -BUPIVACAINE HCL 0.25% 30 ML VIAL As Ordered ONE; -ISOVUE-M 300 61% 15ML VIAL (Q9967) As Ordered ONE; -LIDOCAINE 1% SDV INJ 30 ML VIAL As Ordered ONE; -TRIAMCINOLONE ACETONIDE SUSP 40 MG/ML VIAL (J3301) As Ordered ONE; -diazePAM 5 MG TAB As Ordered ONE; -oxyCODONE 5MG TAB As Ordered ONE
--- NOTE | 2017-01-29 00:59 | ECWPNPC ---
PATIENT NAME: ALEJANDRO VELÁSQUEZ : 1945 GENDER: FEMALE VISIT DATE: 01/28/2017 DISCHARGE DATE: 01/28/17 1038 VISIT LOCKED DATE TIME: PHYSICIAN: BRAULIO NARAYANAN RESOURCE: BRAULIO NARAYANAN REASON FOR APPOINTMENT 1. POST LUMBAR FACET HISTORY OF PRESENT ILLNESS HISTORY OF PRESENT ILLNESS: HERE FOR POST PROCEDURE F/U.HAD BILATERAL L4/5-L5/S1 THERAPEUTIC BLOCK ON 01-14-17.REPORTS >75% IMPROVEMENT IN PAIN THAT CONTINUES TODAY.RATING PAIN VAS0-1/10.USING LYRICA 50MG TID AND TRAMADOL 50MG PRN FOR SEVERE PAIN.FINDS MEDICATION EFFECTIVE AT REDUCING PAIN AND KEEPING HER COMFORTABLE.DENIES SIDE EFFECTS. PAIN THE PATIENT DESCRIBES THE PAIN... FALL RISK SCREENING: SCREENING :NO FALLS IN THE PAST YEAR CURRENT MEDICATIONS TAKING AMLODIPINE BESYLATE 5 MG TABLET 1 TABLET ORALLY ONCE A DAY TAKING CLINDAMYCIN HCL 300 MG CAPSULE 1 CAPSULE ORALLY DIRECTED TAKING LIPITOR 20 MG TABLET 1 TABLET ORALLY ONCE A DAY TAKING LOSARTAN POTASSIUM-HCTZ 50-12.5 MG TABLET 1 TABLET ORALLY ONCE A DAY TAKING METAXALONE 800 MG TABLET 1 TABLET ORALLY BEFORE BEDTIME TAKING OMEPRAZOLE 20 MG CAPSULE DELAYED RELEASE 1 TAB ORALLY ONCE DAILY TAKING PRAMIPEXOLE DIHYDROCHLORIDE 0.5 MG TABLET 1 TABLET BEFORE BEDTIME ORALLY ONCE A DAY TAKING SINGULAIR 10 MG TABLET 1 TABLET IN THE EVENING ORALLY ONCE A DAY TAKING VOLTAREN 1 % GEL TRANSDERMAL DIRECTED TAKING PRISCILLA-CITRATE PLUS VITAMIN D 650..500 TABLET 2 TABLETS ORALLY BID TAKING ZYRTEC 10 MG TABLET 1 TABLET ORALLY ONCE A DAY TAKING COLACE 100 MG CAPSULE 1 CAPSULE NEEDED ORALLY ONCE A DAY TAKING ALBUTEROL-IPRATROPIUM 2.5-0.5 MG/3ML SOLUTION 3 ML INHALATION FOUR TIMES A DAY TAKING ANUCORT-HC 25 MG SUPPOSITORY 1 SUPPOSITORY RECTAL TWICE A DAY NEEDED TAKING FLUTICASONE PROPIONATE 50 MCG/ACT SUSPENSION 1 SPRAY IN EACH NOSTRIL NASALLY ONCE A DAY NEEDED TAKING VENTOLIN HFA 108 (90 BASE) MCG/ACT AEROSOL SOLUTION 2 PUFFS NEEDED INHALATION EVERY 4 HRS TAKING PROCTOSOL HC 2.5 % CREAM 1 APPLICATION TO AFFECTED AREA RECTAL TWICE A DAY NEEDED TAKING TRIAMCINOLONE ACETONIDE 0.1 % CREAM 1 APPLICATION TO AFFECTED AREA EXTERNALLY TWICE A DAY NEEDED TAKING GAVISCON 80-20 MG TABLET CHEWABLE 2 TABLETS AFTER MEALS AND AT BEDTIME NEEDED ORALLY FOUR TIMES A DAY TAKING TYLENOL EXTRA STRENGTH 500 MG TABLET 2 TABLETS NEEDED ORALLY EVERY 6 HRS NEEDED TAKING GLUCOSAMINE CHONDR 500 COMPLEX - CAPSULE ORALLY BID TAKING ONDANSETRON HCL 8 MG TABLET 1 TABLET ORALLY TID PRN TAKING LYRICA 50 MG CAPSULE 1 CAPSULE ORALLY Q8H TID MDD3 3 MOS SUPPLY CAT D CHRONIC PAIN TAKING TRAMADOL HCL 50 MG TABLET 1 ORALLY Q6H PRN PAIN MDD4,3MOS SUPPLY CATD CHRONIC PAIN TAKING QVAR 80 MCG/ACT AEROSOL SOLUTION 1 PUFF INHALATION TWICE A DAY TAKING LYRICA 50 MG CAPSULE 1 CAPSULE ORALLY THREE TIMES A DAY TAKING PREMARIN 0.625 MG/GM CREAM VAGINAL DAILY NOT-TAKING VALIUM 10 MG TABLET 1 ORALLY 1 TAB 1HR PRE PROC. MDD1, NOTES: 07/24/16@0930 NOT-TAKING OXYCODONE HCL 5 MG TABLET 2 ORALLY 2 TAB 1HR PRE PROC. MDD2, NOTES: 07/24/16@0930 MEDICATION LIST REVIEWED AND RECONCILED WITH THE PATIENT PAST MEDICAL HISTORY HTN HYPERCHOLESTREMIA FIBROMYALGIA RESTLESS LEG SYNDROME OSTEOARTHRITIS SEASONAL ALLERGIES ALLERGIES PENICILLIN (FOR ALLERGIES USE ONLY): HIVES BELLARGAL: RASH BETA JEANNE (FOR ALLERGIES USE ONLY): DYSPNEA ERGOT ALKALOIDS: NAUSEA/VOMITING REVIEW OF SYSTEMS CONSTITUTIONAL: ANY CHANGE IN YOUR MEDICAL CONDITION? NO . CHILLS NO . FEVER NO . INFECTION: DO YOU HAVE NEW INFECTIONS? NO . DO YOU HAVE HISTORY OF MRSA? NO . MUSCULOSKELETAL: ANY NEW PATTERNS OF PAIN OR NUMBNESS? NO . GASTROENTEROLOGY: ANY NEW CHANGE IN BOWEL CONTROL? NO . GENITOURINARY: ANY NEW CHANGE IN BLADDER CONTROL? NO . IS THERE A CHANCE YOU COULD BE ? NO . HEMATOLOGY/LYMPH: DO YOU TAKE ANY BLOOD THINNERS? (FOR EXAMPLE- COUMADIN, PLAVIX, AGGRENOX, PLATEL, PRADAXA, OR XARELTO) NO . WHEN WAS YOUR LAST DOSE? DATE: TIME: . NEUROLOGY: HAVE YOU FALLEN IN THE PAST 6 MONTHS? NO . ANY NEW EXTREMITY NUMBNESS OR WEAKNESS? NO . CARDIOLOGY: DO YOU HAVE A PACEMAKER OR DEFIBRILLATOR? NO . RESPIRATORY: HAVE YOU BEEN SICK IN THE PAST WEEK? NO . FEVER NO . FLU LIKE SYMPTOMS? NO . COUGH NO . INTEGUMENTARY: DO YOU HAVE ANY RASHES OR OPEN SORES? NO . ALLERGIC/IMMUNO: ARE YOU ALLERGIC TO SHELLFISH OR IV DYE? NO . ANY NEW ALLERGIES? NO . PSYCHIATRIC: DO YOU HAVE THOUGHTS OF HURTING YOURSELF OR SOMEONE ELSE? NO . ARE YOU ABUSED, NEGLECTED, OR IN AN UNSAFE ENVIRONMENT? NO . ENDOCRINOLOGY: ARE YOU DIABETIC? NO . OTHER: DO YOU NEED ANY PRESCRIPTIONS? NO . IF YES, PLEASE LIST: ____ . ANY NEW PROBLEMS WITH YOUR MEDICATIONS? NO . WHEN DID YOU LAST EAT? ____ . WHEN DID YOU LAST DRINK? ____ . WHAT DID YOU LAST DRINK? ____ . NAME OF PERSON DRIVING YOU HOME? ____ . DO YOU HAVE ANY OTHER QUESTIONS OR CONCERNS NO . REVIEWED BY: PROVIDER: BRAULIO RIZO . VITAL SIGNS WT 140.4 LBS, HT 62 IN, BMI 25.68 INDEX, BP 157/77 MM HG, HR 63 /MIN, RR 16 /MIN, TEMP 97.7 F, OXYGEN SAT % 96%, NA INITIALS TL 1010, REVIEWED BY: NL. EXAMINATION GENERAL EXAMINATION: LUNGS:LUNG SOUNDS ARE CLEAR. HEART:HEART RATE REGULAR. MUSCULOSKELETAL:*, MUSCLE STRENGTH TESTING 5/5 BILATERAL., PALPATION: NEGATIVE FOR PAIN OVER L/S SPINE. NEGATIVE FOR PAIN OVER L/S PARASPINALS. DIAGNOSTIC:MRI-L/S-2011-DISC DISPLACEMENT L2/3 AND L3/4.L4/5 BULGING DISC W CENTRAL STENOSIS -MILD.. ASSESSMENTS LUMBOSACRAL SPONDYLOLYSIS - M43.07 (PRIMARY) TREATMENT LUMBOSACRAL SPONDYLOLYSIS REFILL LYRICA CAPSULE, 50 MG, 1 CAPSULE, ORALLY, Q8H TID MDD3 3 MOS SUPPLY CAT D CHRONIC PAIN, 90 DAY(S), 270, REFILLS 1 CONTINUE TRAMADOL HCL TABLET, 50 MG, 1, ORALLY, Q6H PRN PAIN MDD4,3MOS SUPPLY CATD CHRONIC PAIN PROCEDURE CODES FA211 ESTABILISHED PATIENT [facility] FACILITY CHARGE G8730 PAIN ASSESS POS TOOL F/U PLAN DOC G8427 DOC MEDS VERIFIED W/PT OR RE DISPOSITION & COMMUNICATION FOLLOW UP 3 MONTHS ELECTRONICALLY SIGNED BY DRARIUS OKEEFE ON 01/28/2017 AT 03:32 PM EDT DISCLAIMER : THIS IS A VISIT SUMMARY EXTRACTED FROM THE [employer] CHART. IT IS NOT A COPY OF THE [employer] PROGRESS NOTE. MTDD
== END ==
LOC: M PAIN 10:00
PROVIDERS: ATTEND Nurse Practitioner Family
DX: G89.29 Other chronic pain (principal); M43.07 Spondylolysis, lumbosacral region; I10 Essential (primary) hypertension; E78.00 Pure hypercholesterolemia, unspecified; M79.7 Fibromyalgia; G25.81 Restless legs syndrome; M19.90 Unspecified osteoarthritis, unspecified site; J30.2 Other seasonal allergic rhinitis; Z88.0 Allergy status to penicillin; Z88.8 Allergy status to other drugs, medicaments and biological substances; Z91.048 Other nonmedicinal substance allergy status; Z79.891 Long term (current) use of opiate analgesic; Z79.899 Other long term (current) drug therapy

== ENCOUNTER → 2017-05-21 | Outpatient (CLI) | payer MEDICARE, BC ==
[~2017-05-21] MED LIST changes: +ACET-683 PO; -ACET500T37 PO
--- NOTE | 2017-05-22 00:16 | ECWPNPC ---
PATIENT NAME: ALEJANDRO VELÁSQUEZ : 1945 GENDER: FEMALE VISIT DATE: 05/21/2017 DISCHARGE DATE: 05/21/17 1011 VISIT LOCKED DATE TIME: PHYSICIAN: BRAULIO NARAYANAN RESOURCE: BRAULIO NARAYANAN REASON FOR APPOINTMENT 1. BACK HISTORY OF PRESENT ILLNESS HISTORY OF PRESENT ILLNESS: HERE FOR ROUTINE F/U OF CHRONIC LBP.HAD BILAT. L4/5-L5/S1 THERAPEUTIC BLOCK ON 01-14-17 AND CONTINUES TO BENEFIT TODAY.RATING PAIN VAS 1-2/10.USING TRAMADOL 50MG Q6H PRN FOR SEVERE FLARE UPS,BUT HASNT NEEDED TO TAKE IT MUCH.TAKING LYRICA 50MG TID AND FINDS THIS EFFECTIVE.DENIES SIDE EFFECTS WITH MEDICATION. PAIN THE PATIENT DESCRIBES THE PAIN... FALL RISK SCREENING: SCREENING :NO FALLS IN THE PAST YEAR CURRENT MEDICATIONS TAKING AMLODIPINE BESYLATE 5 MG TABLET 1 TABLET ORALLY ONCE A DAY TAKING CLINDAMYCIN HCL 300 MG CAPSULE 1 CAPSULE ORALLY DIRECTED TAKING LIPITOR 20 MG TABLET 1 TABLET ORALLY ONCE A DAY TAKING LOSARTAN POTASSIUM-HCTZ 50-12.5 MG TABLET 1 TABLET ORALLY ONCE A DAY TAKING METAXALONE 800 MG TABLET 1 TABLET ORALLY BEFORE BEDTIME TAKING OMEPRAZOLE 20 MG CAPSULE DELAYED RELEASE 1 TAB ORALLY TWICE DAILY TAKING PRAMIPEXOLE DIHYDROCHLORIDE 0.5 MG TABLET 1 TABLET BEFORE BEDTIME ORALLY ONCE A DAY TAKING SINGULAIR 10 MG TABLET 1 TABLET IN THE EVENING ORALLY ONCE A DAY TAKING VOLTAREN 1 % GEL TRANSDERMAL DIRECTED TAKING PRISCILLA-CITRATE PLUS VITAMIN D 650..500 TABLET 1 TAB ORALLY ONCE DAILY TAKING ZYRTEC 10 MG TABLET 1 TABLET ORALLY ONCE A DAY TAKING COLACE 100 MG CAPSULE 2 CAPSULES ORALLY ONCE A DAY TAKING ALBUTEROL-IPRATROPIUM 2.5-0.5 MG/3ML SOLUTION 3 ML INHALATION FOUR TIMES A DAY TAKING ANUCORT-HC 25 MG SUPPOSITORY 1 SUPPOSITORY RECTAL TWICE A DAY NEEDED TAKING FLUTICASONE PROPIONATE 50 MCG/ACT SUSPENSION 1 SPRAY IN EACH NOSTRIL NASALLY ONCE A DAY NEEDED TAKING VENTOLIN HFA 108 (90 BASE) MCG/ACT AEROSOL SOLUTION 2 PUFFS NEEDED INHALATION EVERY 4 HRS TAKING PROCTOSOL HC 2.5 % CREAM 1 APPLICATION TO AFFECTED AREA RECTAL TWICE A DAY NEEDED TAKING TRIAMCINOLONE ACETONIDE 0.1 % CREAM 1 APPLICATION TO AFFECTED AREA EXTERNALLY TWICE A DAY NEEDED TAKING GAVISCON 80-20 MG TABLET CHEWABLE 2 TABLETS AFTER MEALS AND AT BEDTIME NEEDED ORALLY FOUR TIMES A DAY TAKING TYLENOL EXTRA STRENGTH 500 MG TABLET 2 TABLETS NEEDED ORALLY EVERY 6 HRS NEEDED TAKING GLUCOSAMINE CHONDR 500 COMPLEX - CAPSULE 1 TAB ORALLY ONCE DAILY TAKING ONDANSETRON HCL 8 MG TABLET 1/2 TABLET ORALLY TID PRN TAKING QVAR 80 MCG/ACT AEROSOL SOLUTION 2 PUFF INHALATION TWICE A DAY TAKING LYRICA 50 MG CAPSULE 1 CAPSULE ORALLY THREE TIMES A DAY TAKING PREMARIN 0.625 MG/GM CREAM VAGINAL DAILY TAKING TRAMADOL HCL 50 MG TABLET 1 ORALLY Q6H PRN PAIN MDD4 TAKING MELATONIN 5 MG TABLET 1 TABLET AT BEDTIME NEEDED WITH FOOD ORALLY ONCE A DAY TAKING SPIRONOLACTONE 25 MG TABLET 1 TABLET ORALLY DAILY TAKING ROGAINE MENS 5 % FOAM EXTERNALLY EVERY 2 DAYS NOT-TAKING LYRICA 50 MG CAPSULE 1 CAPSULE ORALLY Q8H TID MDD3 3 MOS SUPPLY CAT D CHRONIC PAIN NOT-TAKING VALIUM 10 MG TABLET 1 ORALLY 1 TAB 1HR PRE PROC. MDD1, NOTES: 07/24/16@0930 NOT-TAKING OXYCODONE HCL 5 MG TABLET 2 ORALLY 2 TAB 1HR PRE PROC. MDD2, NOTES: 07/24/16@0930 MEDICATION LIST REVIEWED AND RECONCILED WITH THE PATIENT PAST MEDICAL HISTORY HTN HYPERCHOLESTREMIA FIBROMYALGIA RESTLESS LEG SYNDROME OSTEOARTHRITIS SEASONAL ALLERGIES ALLERGIES PENICILLIN (FOR ALLERGIES USE ONLY): HIVES BELLARGAL: RASH BETA JEANNE (FOR ALLERGIES USE ONLY): DYSPNEA ERGOT ALKALOIDS: NAUSEA/VOMITING SOCIAL HISTORY GENERAL: TOBACCO USE ARE YOU A:NONSMOKER RECREATIONAL DRUG USE DRUG USE?NO EXERCISE: WAL[employer], [employer]. [id number] RAST[employer]IAN LANGUAGE LANGUAGES SPOKEN:LUXEMBOURGER LEARNING BARRIERS / SPECIAL NEEDS BARRIERS TO LEARNING?NO HEARING IMPAIRED?NO VISION IMPAIRED?YES :CORRECTIVE LENSES COGNITIVELY IMPAIRED?NO READINESS TO LEARN?YES LEARNING PREFERENCES?NO LEARNING CAPABILITIES PRESENT?YES EMOTIONAL BARRIERS?NO SPECIAL DEVICES?NO PROJECT LEADER NEEDED?NO PAIN CLINIC PFS, CLERGY, PUBLIC HEALTH REFERRALS PFS REFERRAL NEEDED?NO CLERGY REFERRAL NEEDED?NO PUBLIC HEALTH REFERRAL NEEDED?NO HAS THE PATIENT BEEN EDUCATED REGARDING HIS/HER PLAN OF CARE?YES HAS THE PATIENT BEEN EDUCATED REGARDING PAIN, THE RISK FOR PAIN, THE IMPORTANCE OF EFFECTIVE PAIN MANAGEMENT, AND THE PAIN ASSESSMENT PROCESS?YES ADVANCE DIRECTIVES HEALTH CARE PROXY?YES NAME OF HCP LYNDSEY VELÁSQUEZ CONTACT # FOR HCP REVIEW OF SYSTEMS REVIEWED BY: PROVIDER: BRAULIO RIZO . CONSTITUTIONAL: ANY CHANGE IN YOUR MEDICAL CONDITION? NO . CHILLS NO . FEVER NO . INFECTION: DO YOU HAVE NEW INFECTIONS? NO . DO YOU HAVE HISTORY OF MRSA? NO . MUSCULOSKELETAL: ANY NEW PATTERNS OF PAIN OR NUMBNESS? NO . GASTROENTEROLOGY: ANY NEW CHANGE IN BOWEL CONTROL? NO . GENITOURINARY: ANY NEW CHANGE IN BLADDER CONTROL? NO . IS THERE A CHANCE YOU COULD BE ? NO . HEMATOLOGY/LYMPH: DO YOU TAKE ANY BLOOD THINNERS? (FOR EXAMPLE- COUMADIN, PLAVIX, AGGRENOX, PLATEL, PRADAXA, OR XARELTO) NO . WHEN WAS YOUR LAST DOSE? DATE: TIME: . NEUROLOGY: HAVE YOU FALLEN IN THE PAST 6 MONTHS? NO . ANY NEW EXTREMITY NUMBNESS OR WEAKNESS? NO . CARDIOLOGY: DO YOU HAVE A PACEMAKER OR DEFIBRILLATOR? NO . RESPIRATORY: HAVE YOU BEEN SICK IN THE PAST WEEK? NO . FEVER NO . FLU LIKE SYMPTOMS? NO . COUGH NO . INTEGUMENTARY: DO YOU HAVE ANY RASHES OR OPEN SORES? NO . ALLERGIC/IMMUNO: ARE YOU ALLERGIC TO SHELLFISH OR IV DYE? NO . ANY NEW ALLERGIES? NO . PSYCHIATRIC: DO YOU HAVE THOUGHTS OF HURTING YOURSELF OR SOMEONE ELSE? NO . ARE YOU ABUSED, NEGLECTED, OR IN AN UNSAFE ENVIRONMENT? NO . ENDOCRINOLOGY: ARE YOU DIABETIC? NO . OTHER: DO YOU NEED ANY PRESCRIPTIONS? YES . IF YES, PLEASE LIST: TRAMADOL (NOT GONE BUT NOT ENOUGH TO LAST UNTIL NEXT VISIT) . ANY NEW PROBLEMS WITH YOUR MEDICATIONS? NO . WHEN DID YOU LAST EAT? ____ . WHEN DID YOU LAST DRINK? ____ . WHAT DID YOU LAST DRINK? ____ . NAME OF PERSON DRIVING YOU HOME? ____ . DO YOU HAVE ANY OTHER QUESTIONS OR CONCERNS NO . VITAL SIGNS WT 133.0 LBS, HT 62 IN, BMI 24.32 INDEX, BP 144/67 MM HG, HR 65 /MIN, RR 16 /MIN, TEMP 97.6 F, OXYGEN SAT % 95%, NA INITIALS AW 0933, REVIEWED BY: CS. EXAMINATION GENERAL EXAMINATION: LUNGS:LUNG SOUNDS ARE CLEAR. HEART:HEART RATE REGULAR. MUSCULOSKELETAL:*, MUSCLE STRENGTH TESTING 5/5 BILATERAL., PALPATION: NEGATIVE FOR PAIN OVER L/S SPINE. NEGATIVE FOR PAIN OVER L/S PARASPINALS. DIAGNOSTIC:MRI-L/S-2011-DISC DISPLACEMENT L2/3 AND L3/4.L4/5 BULGING DISC W CENTRAL STENOSIS -MILD.. ASSESSMENTS LUMBOSACRAL SPONDYLOLYSIS - M43.07 (PRIMARY) TREATMENT LUMBOSACRAL SPONDYLOLYSIS REFILL TRAMADOL HCL TABLET, 50 MG, 1, ORALLY, Q6H PRN PAIN MDD4, 30 DAY(S), 120, REFILLS 0 CONTINUE LYRICA CAPSULE, 50 MG, 1 CAPSULE, ORALLY, THREE TIMES A DAY PROCEDURE CODES FA211 ESTABILISHED PATIENT [facility] FACILITY CHARGE G8783 BP SCR PRFRM RCMDD DEFIND SCR INTVL G8730 PAIN ASSESS POS TOOL F/U PLAN DOC 3016F PT SCRND UNHLTHY [place] USE 1123F ACP DISCUSS/DSCN MKR DOCD 1036F TOBACCO NON-USER 0518F FALL PLAN OF CARE DOCD G8427 DOC MEDS VERIFIED W/PT OR RE G8420 BMI<30 AND >=22 CALC & DOCU 3288F FALL RISK ASSESSMENT DOCD DISPOSITION & COMMUNICATION FOLLOW UP END JUL/EARLY JUL. ELECTRONICALLY SIGNED BY DARRIUS OKEEFE ON 05/21/2017 AT 10:23 AM EDT DISCLAIMER : THIS IS A VISIT SUMMARY EXTRACTED FROM THE [employer] CHART. IT IS NOT A COPY OF THE [employer] PROGRESS NOTE. MTDD
== END ==
LOC: M PAIN 09:45
PROVIDERS: ATTEND Nurse Practitioner Family
DX: G89.29 Other chronic pain (principal); M43.07 Spondylolysis, lumbosacral region; I10 Essential (primary) hypertension; E78.00 Pure hypercholesterolemia, unspecified; G25.81 Restless legs syndrome; J30.2 Other seasonal allergic rhinitis; Z88.0 Allergy status to penicillin; Z88.8 Allergy status to other drugs, medicaments and biological substances; Z79.891 Long term (current) use of opiate analgesic; Z79.899 Other long term (current) drug therapy

== ENCOUNTER → 2017-07-16 | Outpatient (CLI) | payer MEDICARE, BC ==
--- NOTE | 2017-08-05 02:04 | ECWPNPC ---
PATIENT NAME: ALEJANDRO VELÁSQUEZ : 1945 GENDER: FEMALE VISIT DATE: 07/16/2017 DISCHARGE DATE: 07/16/17 1542 VISIT LOCKED DATE TIME: PHYSICIAN: BRAULIO NARAYANAN RESOURCE: BRAULIO NARAYANAN REASON FOR APPOINTMENT 1. LUMBOSACRAL SPONDYLOLYSIS HISTORY OF PRESENT ILLNESS HISTORY OF PRESENT ILLNESS: HERE OR F/U OF CHRONIC LOW BACK PAIN.RATING PAIN VAS 5/10.DESCRIBES PAIN INTERMITTENT ACHING AND SORE.HAS RESPONDED WELL TO THERAPEUTIC BLOCKS HERE FOR >3 MOS IMPROVEMENT OF >50%.CURRENTLY TAKING TRAMADOL 1 Q8H PRN FOR PAIN AND LYRICA 50MG TID.REPORTS EFECTIVENESS O MEDICATION WITHOUT SIDE EFFETS. PAIN THE PATIENT DESCRIBES THE PAIN... FALL RISK SCREENING: SCREENING :NO FALLS IN THE PAST YEAR CURRENT MEDICATIONS TAKING AMLODIPINE BESYLATE 5 MG TABLET 1 TABLET ORALLY ONCE A DAY TAKING CLINDAMYCIN HCL 300 MG CAPSULE 1 CAPSULE ORALLY DIRECTED TAKING LIPITOR 40 MG TABLET 1 TABLET ORALLY ONCE A DAY TAKING LOSARTAN POTASSIUM-HCTZ 50-12.5 MG TABLET 1 TABLET ORALLY ONCE A DAY TAKING METAXALONE 800 MG TABLET 1 TABLET ORALLY BEFORE BEDTIME TAKING OMEPRAZOLE 20 MG CAPSULE DELAYED RELEASE 1 TAB ORALLY TWICE DAILY TAKING PRAMIPEXOLE DIHYDROCHLORIDE 0.5 MG TABLET 1 TABLET BEFORE BEDTIME ORALLY ONCE A DAY TAKING SINGULAIR 10 MG TABLET 1 TABLET IN THE EVENING ORALLY ONCE A DAY TAKING VOLTAREN 1 % GEL TRANSDERMAL DIRECTED TAKING PRISCILLA-CITRATE PLUS VITAMIN D 650..500 TABLET 1 TAB ORALLY ONCE DAILY TAKING ZYRTEC 10 MG TABLET 1 TABLET ORALLY ONCE A DAY TAKING COLACE 100 MG CAPSULE 2 CAPSULES ORALLY ONCE A DAY TAKING ALBUTEROL-IPRATROPIUM 2.5-0.5 MG/3ML SOLUTION 3 ML INHALATION FOUR TIMES A DAY TAKING ANUCORT-HC 25 MG SUPPOSITORY 1 SUPPOSITORY RECTAL TWICE A DAY NEEDED TAKING FLUTICASONE PROPIONATE 50 MCG/ACT SUSPENSION 1 SPRAY IN EACH NOSTRIL NASALLY ONCE A DAY NEEDED TAKING VENTOLIN HFA 108 (90 BASE) MCG/ACT AEROSOL SOLUTION 2 PUFFS NEEDED INHALATION EVERY 4 HRS TAKING PROCTOSOL HC 2.5 % CREAM 1 APPLICATION TO AFFECTED AREA RECTAL TWICE A DAY NEEDED TAKING TRIAMCINOLONE ACETONIDE 0.1 % CREAM 1 APPLICATION TO AFFECTED AREA EXTERNALLY TWICE A DAY NEEDED TAKING GAVISCON 80-20 MG TABLET CHEWABLE 2 TABLETS AFTER MEALS AND AT BEDTIME NEEDED ORALLY FOUR TIMES A DAY TAKING TYLENOL EXTRA STRENGTH 500 MG TABLET 2 TABLETS NEEDED ORALLY EVERY 6 HRS NEEDED TAKING GLUCOSAMINE CHONDR 500 COMPLEX - CAPSULE 1 TAB ORALLY ONCE DAILY TAKING ONDANSETRON HCL 8 MG TABLET 1/2 TABLET ORALLY TID PRN TAKING QVAR 80 MCG/ACT AEROSOL SOLUTION 2 PUFF INHALATION TWICE A DAY TAKING PREMARIN 0.625 MG/GM CREAM VAGINAL DAILY TAKING MELATONIN 5 MG TABLET 1 TABLET AT BEDTIME NEEDED WITH FOOD ORALLY ONCE A DAY TAKING SPIRONOLACTONE 100 MG TABLET 1 TABLET ORALLY DAILY TAKING TRAMADOL HCL 50 MG TABLET 1 ORALLY Q6H PRN PAIN MDD4 TAKING LYRICA 50 MG CAPSULE 1 CAPSULE ORALLY THREE TIMES A DAY DISCONTINUED ROGAINE MENS 5 % FOAM EXTERNALLY EVERY 2 DAYS UNKNOWN LYRICA 50 MG CAPSULE 1 CAPSULE ORALLY Q8H TID MDD3 3 MOS SUPPLY CAT D CHRONIC PAIN UNKNOWN VALIUM 10 MG TABLET 1 ORALLY 1 TAB 1HR PRE PROC. MDD1, NOTES: 07/24/16@0930 UNKNOWN OXYCODONE HCL 5 MG TABLET 2 ORALLY 2 TAB 1HR PRE PROC. MDD2, NOTES: 07/24/16@0930 MEDICATION LIST REVIEWED AND RECONCILED WITH THE PATIENT PAST MEDICAL HISTORY HTN HYPERCHOLESTREMIA FIBROMYALGIA RESTLESS LEG SYNDROME OSTEOARTHRITIS SEASONAL ALLERGIES ALLERGIES PENICILLIN (FOR ALLERGIES USE ONLY): HIVES BELLARGAL: RASH BETA JEANNE (FOR ALLERGIES USE ONLY): DYSPNEA ERGOT ALKALOIDS: NAUSEA/VOMITING SOCIAL HISTORY GENERAL: TOBACCO USE ARE YOU A:NONSMOKER RECREATIONAL DRUG USE DRUG USE?NO EXERCISE: WALKS, YOGA. PROTESTANT [id number] JEW LANGUAGE LANGUAGES SPOKEN:ARGENTINE LEARNING BARRIERS / SPECIAL NEEDS BARRIERS TO LEARNING?NO HEARING IMPAIRED?NO VISION IMPAIRED?YES COGNITIVELY IMPAIRED?NO :CORRECTIVE LENSES READINESS TO LEARN?YES LEARNING PREFERENCES?NO LEARNING CAPABILITIES PRESENT?YES EMOTIONAL BARRIERS?NO SPECIAL DEVICES?NO ARTIST SCIENTIFIC NEEDED?NO PAIN CLINIC PFS, CLERGY, PUBLIC HEALTH REFERRALS PFS REFERRAL NEEDED?NO CLERGY REFERRAL NEEDED?NO PUBLIC HEALTH REFERRAL NEEDED?NO HAS THE PATIENT BEEN EDUCATED REGARDING HIS/HER PLAN OF CARE?YES HAS THE PATIENT BEEN EDUCATED REGARDING PAIN, THE RISK FOR PAIN, THE IMPORTANCE OF EFFECTIVE PAIN MANAGEMENT, AND THE PAIN ASSESSMENT PROCESS?YES ADVANCE DIRECTIVES HEALTH CARE PROXY?YES NAME OF HCP LYNDSEY VELÁSQUEZ CONTACT # FOR HCP REVIEW OF SYSTEMS REVIEWED BY: PROVIDER: BRAULIO RIZO . CONSTITUTIONAL: ANY CHANGE IN YOUR MEDICAL CONDITION? NO . CHILLS NO . FEVER NO . INFECTION: DO YOU HAVE NEW INFECTIONS? NO . DO YOU HAVE HISTORY OF MRSA? NO . MUSCULOSKELETAL: ANY NEW PATTERNS OF PAIN OR NUMBNESS? NO . GASTROENTEROLOGY: ANY NEW CHANGE IN BOWEL CONTROL? NO . GENITOURINARY: ANY NEW CHANGE IN BLADDER CONTROL? NO . IS THERE A CHANCE YOU COULD BE ? NO . HEMATOLOGY/LYMPH: DO YOU TAKE ANY BLOOD THINNERS? (FOR EXAMPLE- COUMADIN, PLAVIX, AGGRENOX, PLATEL, PRADAXA, OR XARELTO) NO . WHEN WAS YOUR LAST DOSE? DATE: TIME: . NEUROLOGY: HAVE YOU FALLEN IN THE PAST 6 MONTHS? NO . ANY NEW EXTREMITY NUMBNESS OR WEAKNESS? NO . CARDIOLOGY: DO YOU HAVE A PACEMAKER OR DEFIBRILLATOR? NO . RESPIRATORY: HAVE YOU BEEN SICK IN THE PAST WEEK? NO . FEVER NO . FLU LIKE SYMPTOMS? NO . COUGH NO . INTEGUMENTARY: DO YOU HAVE ANY RASHES OR OPEN SORES? NO . ALLERGIC/IMMUNO: ARE YOU ALLERGIC TO SHELLFISH OR IV DYE? NO . ANY NEW ALLERGIES? NO . PSYCHIATRIC: DO YOU HAVE THOUGHTS OF HURTING YOURSELF OR SOMEONE ELSE? NO . ARE YOU ABUSED, NEGLECTED, OR IN AN UNSAFE ENVIRONMENT? NO . ENDOCRINOLOGY: ARE YOU DIABETIC? NO . OTHER: DO YOU NEED ANY PRESCRIPTIONS? YES . IF YES, PLEASE LIST: ____TRAMADOL . ANY NEW PROBLEMS WITH YOUR MEDICATIONS? NO . WHEN DID YOU LAST EAT? ____ . WHEN DID YOU LAST DRINK? ____ . WHAT DID YOU LAST DRINK? ____ . NAME OF PERSON DRIVING YOU HOME? ____ . DO YOU HAVE ANY OTHER QUESTIONS OR CONCERNS NO . VITAL SIGNS WT 132 LBS, HT 62 IN, BMI 24.14 INDEX, BP 105/64 MM HG, HR 74 /MIN, RR 16 /MIN, TEMP 97.3 F, OXYGEN SAT % 94%, SAFE IN ENV? (Y/N) YES, NA INITIALS TX 15:06, REVIEWED BY: RUDI. EXAMINATION GENERAL EXAMINATION: LUNGS:LUNG SOUNDS ARE CLEAR. HEART:HEART RATE REGULAR. MUSCULOSKELETAL:*, MUSCLE STRENGTH TESTING 5/5 BILATERAL., PALPATION: NEGATIVE FOR PAIN OVER L/S SPINE. NEGATIVE FOR PAIN OVER L/S PARASPINALS. DIAGNOSTIC:MRI-L/S-2011-DISC DISPLACEMENT L2/3 AND L3/4.L4/5 BULGING DISC W CENTRAL STENOSIS -MILD.. ASSESSMENTS LUMBOSACRAL SPONDYLOLYSIS - M43.07 (PRIMARY) TREATMENT LUMBOSACRAL SPONDYLOLYSIS REFILL TRAMADOL HCL TABLET, 50 MG, 1, ORALLY, Q8H PRN MDD3, 30 DAY(S), 90, REFILLS 0 CONTINUE LYRICA CAPSULE, 50 MG, 1 CAPSULE, ORALLY, THREE TIMES A DAY MDD3 3MOS SUPPLY CAT D CHRONIC PAIN, 90 DAY(S), 270, REFILLS 0 NOTES: BILAT. L4/5-L5/S1 THERAPEUTIC FACET BLOCK. PROCEDURE CODES FA211 ESTABILISHED PATIENT [facility] FACILITY CHARGE G8730 PAIN ASSESS POS TOOL F/U PLAN DOC G8427 DOC MEDS VERIFIED W/PT OR RE DISPOSITION & COMMUNICATION FOLLOW UP 2WK (REASON: BILAT. L4/5-L5/S1 THERAPEUTIC FACET BLOCK) ELECTRONICALLY SIGNED BY DARRIUS OKEEFE ON 08/03/2017 AT 01:11 PM EST DISCLAIMER : THIS IS A VISIT SUMMARY EXTRACTED FROM THE [employer] CHART. IT IS NOT A COPY OF THE [employer] PROGRESS NOTE. MTDD
== END ==
LOC: M PAIN 14:00
PROVIDERS: ATTEND Nurse Practitioner Family
DX: G89.29 Other chronic pain (principal); M43.07 Spondylolysis, lumbosacral region; I10 Essential (primary) hypertension; E78.00 Pure hypercholesterolemia, unspecified; M79.7 Fibromyalgia; G25.81 Restless legs syndrome; M19.90 Unspecified osteoarthritis, unspecified site; J30.2 Other seasonal allergic rhinitis; Z79.899 Other long term (current) drug therapy; Z88.0 Allergy status to penicillin; Z88.8 Allergy status to other drugs, medicaments and biological substances

== ENCOUNTER → 2017-08-04 | Outpatient (CLI) | payer MEDICARE, BC ==
[~2017-08-04] MED LIST changes: -/PREG50CA PO; -/WARF25TA PO; -ACET-683 PO; -ALBU17IN INH; -AMLO5TAB2 PO; -ANUC25SU PR; -ASPI1TAB PO; +BUPIVACAINE HCL 0.25% 30 ML VIAL As Ordered; -CALCTAB54 PO; -CICL8KIT3 TOP; -COLACE PO; -DURE0.055 OP; -ESTR625TA PO; -EXTR500C4 PO; -FLECTOR PATCH TD; -FLON0.054; -GAVICHW PO; -GLUCTAB6 PO; -ILEV0.3D OP; +ISOVUE-M 300 61% 15ML VIAL (Q9967) As Ordered; +LIDOCAINE 1% SDV INJ 30 ML VIAL As Ordered; -LIPI10TA PO; -LOSA100T PO; -MELA5CAP3 PO; -META800T82 PO; -MULTTAB4 PO; -NABU750T PO; -NABUPOW PO; -OMEP20CA3 PO; -PERCOCET PO; -PRAMIPEXOLE PO; -PROC2.5C PR; -ROXI1TAB2 PO; -SINGULAIR PO; -TOPR25TA PO; -TRAMADOL PO; -TRIA25CR TOP; +TRIAMCINOLONE ACETONIDE SUSP 40 MG/ML VIAL (J3301) As Ordered; -TUMS500C PO; -ULTR50TA PO; -VENTAER INH; -VITA-112 PO; -VITA500T53 PO; -VITA50TA35 PO; -ZYRT10CA PO; -[UNRECOGNIZED DRUG - CODE] PO; +diazePAM 5 MG TAB As Ordered; +oxyCODONE 5MG TAB As Ordered; -pain cream TD; -vitamin B2 PO
== END ==
LOC: M PAIN 11:15
DX: G89.29 Other chronic pain (principal); M47.816 Spondylosis without myelopathy or radiculopathy, lumbar region; M47.817 Spondylosis without myelopathy or radiculopathy, lumbosacral region; I10 Essential (primary) hypertension; E78.00 Pure hypercholesterolemia, unspecified; M79.7 Fibromyalgia; G25.81 Restless legs syndrome; M19.90 Unspecified osteoarthritis, unspecified site; J30.2 Other seasonal allergic rhinitis; Z79.891 Long term (current) use of opiate analgesic; Z79.899 Other long term (current) drug therapy; Z88.0 Allergy status to penicillin; Z88.8 Allergy status to other drugs, medicaments and biological substances
CPT/HCPCS: J3301

== ENCOUNTER → 2017-08-18 | Outpatient (CLI) | payer MEDICARE, BC | LOC: M PAIN 11:30 | DX: M43.07 Spondylolysis, lumbosacral region (principal); I10 Essential (primary) hypertension; M79.7 Fibromyalgia; G25.81 Restless legs syndrome; M19.90 Unspecified osteoarthritis, unspecified site; J30.89 Other allergic rhinitis; Z88.0 Allergy status to penicillin; Z88.8 Allergy status to other drugs, medicaments and biological substances; Z79.891 Long term (current) use of opiate analgesic; Z79.899 Other long term (current) drug therapy | CPT/HCPCS: G0463 ==

== ENCOUNTER → 2018-02-02 | Outpatient (CLI) | payer MEDICARE, BC | LOC: M PAIN 09:45 | DX: M43.07 Spondylolysis, lumbosacral region (principal); I10 Essential (primary) hypertension; E78.00 Pure hypercholesterolemia, unspecified; M79.7 Fibromyalgia; G25.81 Restless legs syndrome; Z79.899 Other long term (current) drug therapy; Z79.891 Long term (current) use of opiate analgesic; J30.2 Other seasonal allergic rhinitis; Z88.0 Allergy status to penicillin; Z88.8 Allergy status to other drugs, medicaments and biological substances | CPT/HCPCS: G0463 ==

== ENCOUNTER → 2018-03-02 | Outpatient (CLI) | payer MEDICARE, BC | LOC: M PAIN 08:45 | DX: G89.29 Other chronic pain (principal); M47.816 Spondylosis without myelopathy or radiculopathy, lumbar region; M47.817 Spondylosis without myelopathy or radiculopathy, lumbosacral region; M54.5 Low back pain; I10 Essential (primary) hypertension; M79.7 Fibromyalgia; G25.81 Restless legs syndrome; E78.00 Pure hypercholesterolemia, unspecified; Z79.891 Long term (current) use of opiate analgesic; Z79.899 Other long term (current) drug therapy; J30.2 Other seasonal allergic rhinitis; Z88.0 Allergy status to penicillin; Z88.8 Allergy status to other drugs, medicaments and biological substances; Z96.651 Presence of right artificial knee joint | CPT/HCPCS: J3301 ==

== ENCOUNTER → 2018-03-16 | Outpatient (CLI) | payer MEDICARE, BC | LOC: M PAIN 09:00 | DX: M43.07 Spondylolysis, lumbosacral region (principal); I10 Essential (primary) hypertension; E78.00 Pure hypercholesterolemia, unspecified; M79.7 Fibromyalgia; G25.81 Restless legs syndrome; M19.90 Unspecified osteoarthritis, unspecified site; J45.909 Unspecified asthma, uncomplicated; Z79.51 Long term (current) use of inhaled steroids; Z79.891 Long term (current) use of opiate analgesic; Z79.899 Other long term (current) drug therapy; Z88.0 Allergy status to penicillin; Z88.8 Allergy status to other drugs, medicaments and biological substances; Z96.651 Presence of right artificial knee joint | CPT/HCPCS: G0463 ==

== ENCOUNTER → 2018-04-27 | Outpatient (CLI) | payer MEDICARE, BC | LOC: M PAIN 08:45 | DX: M43.07 Spondylolysis, lumbosacral region (principal); I10 Essential (primary) hypertension; E78.00 Pure hypercholesterolemia, unspecified; M79.7 Fibromyalgia; G25.81 Restless legs syndrome; M19.90 Unspecified osteoarthritis, unspecified site; J45.909 Unspecified asthma, uncomplicated; Z85.828 Personal history of other malignant neoplasm of skin; Z79.891 Long term (current) use of opiate analgesic; Z79.899 Other long term (current) drug therapy; Z96.651 Presence of right artificial knee joint; Z88.0 Allergy status to penicillin; Z88.8 Allergy status to other drugs, medicaments and biological substances | CPT/HCPCS: G0463 ==

== ENCOUNTER → 2019-01-14 | Outpatient (CLI) | payer MEDICARE, BC ==
[~2019-01-14] MED LIST changes: +ACET-683 PO; +ALBU17IN INH; +AMLO5TAB6 PO; +ANUC25SU PR; +ASPI81TA26 PO; -BUPIVACAINE HCL 0.25% 30 ML VIAL As Ordered; +CALCTAB54 PO; +CICL8KIT3 TOP; +COLACE PO; +COUM1TAB18 PO; +DURE0.055 OP; +ESTR625TA PO; +EXTR500C4 PO; +FLECTOR PATCH TD; +FLON0.054; +GAVICHW PO; +GLUCTAB6 PO; +ILEV0.3D OP; -ISOVUE-M 300 61% 15ML VIAL (Q9967) As Ordered; -LIDOCAINE 1% SDV INJ 30 ML VIAL As Ordered; +LIPI10TA PO; +LOSA100T PO; +LYRI50CA PO; +MELA5CAP3 PO; +META800T82 PO; +MULTTAB4 PO; +NABU-119 PO; +NABUPOW PO; +OMEP20CA3 PO; +OXYC1TAB23 PO; +PRAMIPEXOLE PO; +PROC2.5C PR; +ROXI1TAB2 PO; +SINGULAIR PO; +TOPR25TA PO; +TRAMADOL PO; +TRIA25CR TOP; -TRIAMCINOLONE ACETONIDE SUSP 40 MG/ML VIAL (J3301) As Ordered; +TUMS500C PO; +ULTR50TA PO; +VENTAER INH; +VITA-112 PO; +VITA500T17 PO; +VITA50TA35 PO; +ZYRT10CA PO; +[UNRECOGNIZED DRUG - CODE] PO; -diazePAM 5 MG TAB As Ordered; -oxyCODONE 5MG TAB As Ordered; +pain cream TD; +vitamin B2 PO
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
== END ==
LOC: M PAIN 10:15
PROVIDERS: ATTEND Nurse Practitioner Family
DX: M47.816 Spondylosis without myelopathy or radiculopathy, lumbar region (principal); G89.29 Other chronic pain; I10 Essential (primary) hypertension; E78.00 Pure hypercholesterolemia, unspecified; M79.7 Fibromyalgia; G25.81 Restless legs syndrome; M19.90 Unspecified osteoarthritis, unspecified site; J45.909 Unspecified asthma, uncomplicated; Z96.651 Presence of right artificial knee joint; Z88.0 Allergy status to penicillin; Z88.8 Allergy status to other drugs, medicaments and biological substances; Z86.14 Personal history of Methicillin resistant Staphylococcus aureus infection; Z79.891 Long term (current) use of opiate analgesic; Z79.899 Other long term (current) drug therapy

== ENCOUNTER → 2019-05-12 | Outpatient (CLI) | payer MEDICARE, BC ==
[~2019-05-12] MED LIST changes: +BUPIVACAINE HCL 0.25% 30 ML VIAL As Ordered ONE; +ISOVUE-M 300 61% 15ML VIAL (Q9967) As Ordered ONE; +LIDOCAINE 1% SDV INJ 30 ML VIAL As Ordered ONE; +TRIAMCINOLONE ACETONIDE SUSP 40 MG/ML VIAL (J3301) As Ordered ONE; +diazePAM 5 MG TAB As Ordered ONE; +oxyCODONE 5MG TAB As Ordered ONE
--- NOTE | 2019-05-12 10:17 | REP ---
C-ARM VIEWS LUMBAR SPINE: CLINICAL HISTORY: Pain. Three C-arm views of the lumbar spine performed during lumbar facet injection performed by Dr. Dejesus. [place] are seen along the lower lumbar facets. 21 seconds fluoroscopy time utilized. Electronically Signed by Nathan Sesay MD 05/12/2019 01:33 P
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
== END ==
LOC: M PAIN 08:30
PROVIDERS: ATTEND Anesthesiology
DX: M47.816 Spondylosis without myelopathy or radiculopathy, lumbar region (principal); M47.817 Spondylosis without myelopathy or radiculopathy, lumbosacral region; I10 Essential (primary) hypertension; E78.00 Pure hypercholesterolemia, unspecified; M79.7 Fibromyalgia; G25.81 Restless legs syndrome; M19.90 Unspecified osteoarthritis, unspecified site; J45.909 Unspecified asthma, uncomplicated; Z85.828 Personal history of other malignant neoplasm of skin; Z96.651 Presence of right artificial knee joint; Z90.710 Acquired absence of both cervix and uterus; Z90.49 Acquired absence of other specified parts of digestive tract; Z79.891 Long term (current) use of opiate analgesic; Z79.899 Other long term (current) drug therapy; Z88.0 Allergy status to penicillin; Z88.8 Allergy status to other drugs, medicaments and biological substances
CPT/HCPCS: 64493; 64494; J3301; Q9967

== ENCOUNTER → 2019-05-24 | Outpatient (CLI) | payer MEDICARE, BC ==
[~2019-05-24] MED LIST changes: -BUPIVACAINE HCL 0.25% 30 ML VIAL As Ordered ONE; -ISOVUE-M 300 61% 15ML VIAL (Q9967) As Ordered ONE; -LIDOCAINE 1% SDV INJ 30 ML VIAL As Ordered ONE; -TRIAMCINOLONE ACETONIDE SUSP 40 MG/ML VIAL (J3301) As Ordered ONE; -diazePAM 5 MG TAB As Ordered ONE; -oxyCODONE 5MG TAB As Ordered ONE
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
== END ==
LOC: M PAIN 09:30
PROVIDERS: ATTEND Nurse Practitioner Family
DX: M47.816 Spondylosis without myelopathy or radiculopathy, lumbar region (principal); I10 Essential (primary) hypertension; E78.00 Pure hypercholesterolemia, unspecified; M79.7 Fibromyalgia; G25.81 Restless legs syndrome; M19.90 Unspecified osteoarthritis, unspecified site; J45.909 Unspecified asthma, uncomplicated; Z96.651 Presence of right artificial knee joint; Z88.0 Allergy status to penicillin; Z88.8 Allergy status to other drugs, medicaments and biological substances; Z79.51 Long term (current) use of inhaled steroids; Z79.891 Long term (current) use of opiate analgesic; Z79.899 Other long term (current) drug therapy

== ENCOUNTER → 2019-12-26 | Outpatient (CLI) | payer MEDICARE, BC ==
--- NOTE | 2019-12-28 06:22 | ECWPNPC ---
PATIENT NAME: ALEJANDRO VELÁSQUEZ : 1945 GENDER: FEMALE VISIT DATE: 12/26/2019 DISCHARGE DATE: 12/26/19 0953 VISIT LOCKED DATE TIME: PHYSICIAN: BRAULIO NARAYANAN RESOURCE: BRAULIO NARAYANAN REASON FOR APPOINTMENT 1. [email or web address] LOW BACK- PAT COMPLETED HISTORY OF PRESENT ILLNESS HISTORY OF PRESENT ILLNESS: PATIENT IS AGREEABLE TO TELEPHONE VISIT TODAY. THIS IS A FOLLOW-UP OF CHRONIC LOW BACK PAIN. STATES LOW BACK PAIN IS BEGINNING TO BE MORE INTENSE. RATING PAIN LEVEL A 5-7/10 VAS. PAIN IS AGGRAVATED WITH INCREASED ACTIVITY, I.E. GARDENING AND PROLONGED SITTING. PAIN IS RELIEVED SOMEWHAT WITH REPOSITIONING AND MEDICATION. CURRENTLY USING TRAMADOL AND LYRICA PERIODICALLY FOR SEVERE PAIN EPISODES. LYRICA IS ON A SCHEDULED BASIS. RESPONDS WELL TO BILATERAL LUMBAR FACET BLOCK, THERAPEUTIC. ALSO REPORTS DOING PHYSICAL THERAPY IN [place] THAT WAS VERY HELPFUL. DISCUSSED MEDICATION AND TREATMENT OPTIONS. PAIN THE PATIENT DESCRIBES THE PAIN... FALL RISK SCREENING: SCREENING :NO FALLS REPORTED IN THE LAST YEAR CURRENT MEDICATIONS TAKING CLINDAMYCIN HCL 300 MG CAPSULE 1 CAPSULE ORALLY DIRECTED, NOTES: NOT LATELY - BEFORE DENTAL PROCEDURES TAKING LIPITOR 20 MG TABLET 1 TABLET ORALLY ONCE A DAY TAKING LOSARTAN POTASSIUM-HCTZ 50-12.5 MG TABLET 1 TABLET ORALLY ONCE A DAY TAKING OMEPRAZOLE 20 MG CAPSULE DELAYED RELEASE 1 TAB ORALLY ONCE DAILY TAKING PRAMIPEXOLE DIHYDROCHLORIDE 0.5 MG TABLET 1 TABLET BEFORE BEDTIME ORALLY BID TAKING SINGULAIR 10 MG TABLET 1 TABLET ORALLY ONCE A DAY TAKING VOLTAREN 1 % GEL TRANSDERMAL DIRECTED TAKING ZYRTEC 10 MG TABLET 1 TABLET ORALLY ONCE A DAY TAKING COLACE 100 MG CAPSULE 3 CAPSULES ORALLY ONCE A DAY TAKING FLUTICASONE PROPIONATE 50 MCG/ACT SUSPENSION 1 SPRAY IN EACH NOSTRIL NASALLY ONCE A DAY NEEDED TAKING VENTOLIN HFA 108 (90 BASE) MCG/ACT AEROSOL SOLUTION 2 PUFFS NEEDED INHALATION EVERY 4 HRS TAKING PROCTOSOL HC 2.5 % CREAM 1 APPLICATION TO AFFECTED AREA RECTAL TWICE A DAY NEEDED TAKING TRIAMCINOLONE ACETONIDE 0.1 % CREAM 1 APPLICATION TO AFFECTED AREA EXTERNALLY TWICE A DAY NEEDED TAKING TYLENOL EXTRA STRENGTH 500 MG TABLET 2 TABLETS NEEDED ORALLY EVERY 6 HRS NEEDED TAKING GLUCOSAMINE CHONDR 500 COMPLEX - CAPSULE 1 TAB ORALLY ONCE DAILY TAKING ONDANSETRON HCL 8 MG TABLET 1/2 TABLET ORALLY TID PRN TAKING PREMARIN 0.625 MG/GM CREAM VAGINAL DAILY TAKING SPIRONOLACTONE 100 MG TABLET 1 TABLET ORALLY DAILY TAKING ALBUTEROL-IPRATROPIUM 2.5-0.5 MG/3ML SOLUTION 3 ML INHALATION FOUR TIMES A DAY, NOTES: NEEDED TAKING ANUCORT-HC 25 MG SUPPOSITORY 1 SUPPOSITORY RECTAL TWICE A DAY NEEDED TAKING ARNUITY ELLIPTA 100 MCG/ACT AEROSOL POWDER BREATH ACTIVATED 1 PUFF INHALATION ONCE A DAY TAKING BIOTIN 10 MG CAPSULE ORALLY TAKING CATHERINE ALLERGY 180 MG TABLET 1 TAB ORALLY ONCE A DAY TAKING CYCLOBENZAPRINE HCL 5 MG TABLET 1 TABLET ORALLY BEFORE BEDTIME TAKING FLUCONAZOLE 100 MG TABLET 1 TABLET ORALLY , NOTES: FIRST THREE DAYS OF EACH MONTH TAKING LYRICA 50 MG CAPSULE 1 CAPSULE ORALLY Q8H TID MDD3 TAKING TRAMADOL HCL 50 MG TABLET 1 ORALLY Q8H PRN MDD3 TAKING VITAMIN D 50 MCG (2000 UT) TABLET 1 TABLET ORALLY ONCE A DAY NOT-TAKING RANITIDINE HCL 150 MG CAPSULE 1 CAPSULE AT BEDTIME ORALLY ONCE A DAY NOT-TAKING GAVISCON 80-20 MG TABLET CHEWABLE 2 TABLETS AFTER MEALS AND AT BEDTIME NEEDED ORALLY FOUR TIMES A DAY, NOTES: RARELY NOT-TAKING MELATONIN 5 MG TABLET 1 TABLET AT BEDTIME NEEDED WITH FOOD ORALLY ONCE A DAY NOT-TAKING MUCINEX ALLERGY 180 MG TABLET 1 TABLET NEEDED ORALLY ONCE A DAY, NOTES: NEEDED MEDICATION LIST REVIEWED AND RECONCILED WITH THE PATIENT PAST MEDICAL HISTORY HTN HYPERCHOLESTREMIA FIBROMYALGIA RESTLESS LEG SYNDROME OSTEOARTHRITIS 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 ASTHMA ALLERGIES PENICILLIN (FOR ALLERGIES USE ONLY): HIVES BELLARGAL: RASH BETA JEANNE (FOR ALLERGIES USE ONLY): DYSPNEA ERGOT ALKALOIDS: NAUSEA/VOMITING SURGICAL HISTORY TUBALIGATION 03/17/75 OVARIAN CYST 02/28/81 LAPROSCOPY,LAPAROTOMY ,BILATERAL CYSTECTOMY 07/09/93 EUA,COLPOSCOPY, LASER VAORIZATION OF THE VAGINA 06/22/98 EUA COLPOOSCOPY, REMOVAL OF VAGINAL CUFF &REPAIR 03/22/99 GALL BLADDER REMOVAL 05/21 ARTHROSCOPIC KNEE SURGERY 12/24 TOTAL RIGHT KNEE REPLACEMENT 03/11/13 HYSTERECTOMY 1992 FAMILY HISTORY FATHER: , DIAGNOSED WITH OTHER MALIGNANT NEOPLASM OF UNSPECIFIED SITE MOTHER: , OTHER MALIGNANT NEOPLASM OF UNSPECIFIED SITE 1 SON(S) , 2 DAUGHTER(S) - HEALTHY. DAD-PROSTATE CA, ALCOHOLICMOM-LEUKEMIA,COLON CA. SOCIAL HISTORY GENERAL: TOBACCO USE ARE YOU A:NONSMOKER LATEX QUESTIONNAIRE LATEX ALLERGY : HAVE YOU EVER DEVELOPED ANY TYPE OF REACTION AFTER HANDLING LATEX PRODUCTS SUCH RUBBER GLOVES, CONDOMS, DIAPHRAGMS, BALLOONS, SOCKS, OR UNDERWEAR?NO LATEX ALLERGY : HAVE YOU EVER DEVELOPED ANY TYPE OF REACTION DURING OR AFTER DENTAL APPOINTMENT, VAGINAL/RECTAL EXAMINATION, SURGICAL PROCEDURE, OR ANY OTHER EXPOSURE?NO LATEX RISK : HAVE YOU EVER HAD ANY DIFFICULTY BREATHING OR HIVES AFTER EATING OR HANDLING ANY FRUITS, OR VEGETABLES; SUCH KIWI, BANANAS, STONE FRUITS, OR CHESTNUTSNO LATEX RISK : DO YOU HAVE A PREVIOUS PERSONAL HISTORY OF MORE THAN NINE SURGERIES, SPINA BIFIDA, OR REPEATED CATHERIZATIONS? YES - PLEASE INDICATE : > 9 SURGERIES LATEX RISK : ARE YOU FREQUENTLY EXPOSED TO LATEX PRODUCTS IN YOUR OCCUPATION?NO DATE ASKED : 12/23/2019 ALCOHOL SCREENING DID YOU HAVE A DRINK CONTAINING ALCOHOL IN THE PAST YEAR?NO POINTS0 INTERPRETATIONNEGATIVE RECREATIONAL DRUG USE DRUG USE?NO CAFFEINE CAFFEINE USE?YES HOW OFTEN AND HOW MUCH? 1 CUP COFFEE/DAILY HOAHAOISM [id number] ORTHODOX LANGUAGE LANGUAGES SPOKEN:MONGOLIAN LEARNING BARRIERS / SPECIAL NEEDS BARRIERS TO LEARNING?NO HEARING IMPAIRED?NO VISION IMPAIRED?YES COGNITIVELY IMPAIRED?NO :CORRECTIVE LENSES READINESS TO LEARN?YES LEARNING PREFERENCES?NO LEARNING CAPABILITIES PRESENT?YES EMOTIONAL BARRIERS?NO SPECIAL DEVICES?NO PUBLIC RELATIONS STUDIES DIRECTOR NEEDED?NO DOMESTIC VIOLENCE DO YOU FEEL SAFE IN YOUR ENVIRONMENT?YES EXERCISE: WALKS, YOGA. NEW PATIENT PAIN DIARY TODAY'S VISITNOTES 12/23/2019 PATIENT DESCRIBES PAIN :ACHING, HAVE IT ALL THE TIME FROM 0-10, WHAT LEVEL IS YOUR PAIN TODAY?5 PRECIPITATING FACTORS STADING STILL, OVER DOING ACTIVITY ALLEVIATING FACTORS TRAMADOL, PHYSICAL THERAPY PAIN CLINIC PFS, CLERGY, PUBLIC HEALTH REFERRALS PFS REFERRAL NEEDED?NO CLERGY REFERRAL NEEDED?NO PUBLIC HEALTH REFERRAL NEEDED?NO HAS THE PATIENT BEEN EDUCATED REGARDING HIS/HER PLAN OF CARE?YES HAS THE PATIENT BEEN EDUCATED REGARDING PAIN, THE RISK FOR PAIN, THE IMPORTANCE OF EFFECTIVE PAIN MANAGEMENT, AND THE PAIN ASSESSMENT PROCESS?YES ADVANCE DIRECTIVE ADVANCE DIRECTIVE DISCUSSED WITH PATIENT:YES HEALTH CARE PROXY [facility] [phone] REVIEWED WITH PATIENT 03/02/18 0915 LAS03/16/18 5416 REVIEWED WITH PT. AD04/27/18 REVIEWED WITH PT BVREVIEWED WITH PATIENT 01/14/19 1049 JSREVIEWED [facility] PATIENT 05/12/19 0852 BVREVIEWED WITH PATIENT 05-24-2019 LAS. HOSPITALIZATION/MAJOR DIAGNOSTIC PROCEDURE [place], HEART ATTACK CAUSED BY STRESS 2013 HYPERTENSION 10/2015 BRONCHITIS & PNEUMO 10/2016 REVIEW OF SYSTEMS REVIEWED BY: PROVIDER: BRAULIO RIZO . CONSTITUTIONAL: ANY CHANGE IN YOUR MEDICAL CONDITION? NO . CHILLS NO . FEVER NO . INFECTION: DO YOU HAVE NEW INFECTIONS? NO . DO YOU HAVE HISTORY OF MRSA? YES . MUSCULOSKELETAL: ANY NEW PATTERNS OF PAIN OR NUMBNESS? NO . GASTROENTEROLOGY: ANY NEW CHANGE IN BOWEL CONTROL? NO . GENITOURINARY: ANY NEW CHANGE IN BLADDER CONTROL? NO . IS THERE A CHANCE YOU COULD BE ? NO . HEMATOLOGY/LYMPH: DO YOU TAKE ANY BLOOD THINNERS? (FOR EXAMPLE- COUMADIN, PLAVIX, AGGRENOX, PLATEL, PRADAXA, OR XARELTO) NO . WHEN WAS YOUR LAST DOSE? DATE: TIME: . NEUROLOGY: HAVE YOU FALLEN IN THE PAST 12 MONTHS? YES- FELL IN OCTOBER AND INJURED RIGHT WRIST AND HAD TO WEAR A SLPINT . ANY NEW EXTREMITY NUMBNESS OR WEAKNESS? NO . CARDIOLOGY: DO YOU HAVE A PACEMAKER OR DEFIBRILLATOR? NO . RESPIRATORY: HAVE YOU BEEN SICK IN THE PAST WEEK? NO . FEVER NO . FLU LIKE SYMPTOMS? NO . COUGH NO . INTEGUMENTARY: DO YOU HAVE ANY RASHES OR OPEN SORES? NO . ALLERGIC/IMMUNO: ARE YOU ALLERGIC TO IV DYE? NO . ANY NEW ALLERGIES? NO . PSYCHIATRIC: DO YOU HAVE THOUGHTS OF HURTING YOURSELF OR SOMEONE ELSE? NO . ARE YOU ABUSED, NEGLECTED, OR IN AN UNSAFE ENVIRONMENT? NO . ENDOCRINOLOGY: ARE YOU DIABETIC? NO . OTHER: DO YOU NEED ANY PRESCRIPTIONS? NO . IF YES, PLEASE LIST: ____ . ANY NEW PROBLEMS WITH YOUR MEDICATIONS? NO . WHEN DID YOU LAST EAT? ____ . WHEN DID YOU LAST DRINK? ____ . WHAT DID YOU LAST DRINK? ____ . NAME OF PERSON DRIVING YOU HOME? ____ . DO YOU HAVE ANY OTHER QUESTIONS OR CONCERNS NO . ASSESSMENTS SPONDYLOSIS OF LUMBAR REGION WITHOUT MYELOPATHY OR RADICULOPATHY - M47.816 (PRIMARY) TREATMENT SPONDYLOSIS OF LUMBAR REGION WITHOUT MYELOPATHY OR RADICULOPATHY REFILL LYRICA CAPSULE, 50 MG, 1 CAPSULE, ORALLY, Q8H TID MDD3, 30 DAYS, 90, REFILLS 5 REFILL TRAMADOL HCL TABLET, 50 MG, 1, ORALLY, Q8H PRN MDD3, 30 DAYS, 90, REFILLS 5 NOTES: BILATERAL L4-5-L5-S1 LUMBAR FACET BLOCK, THERAPEUTIC , ISTOP REGISTRY REVIEWED AND DEMONSTRATES COMPLLIANCE. RECENT URINE TOXICOLOGY REVIEWED. NO UNAUTHORIZED MEDICATIONS. NO ILLICIT SUBSTANCES AND PRESCRIBED MEDICATIONS WERE PRESENT. TOTAL TIME SPENT DURING TELEPHONE VISIT WAS APPROXIMATELY 12 MINUTES. CLINICAL NOTES: PRE-PROCEDURE INSTRUCTIONS FOR LUMBAR FACET BLOCK REVIEWED WITH PATIENT @1:20PM , 12/26/19, NA. PT. UNDERSTANDS AND AGREES TO FOLLOW INSTRUCTIONS. PT. HAD NO QUESTIONS OR COCERNS IN REGARDS TO THE PROCEDURE AT THIS TIME. OTHERS NOTES: PATIENT CONSENTS TO TELEPHONE VISIT WITH THIS PAINTLESS DENT REPAIR TECHNICIAN. PRE SCREENING COMPLETED WITH THIS PAINTLESS DENT REPAIR TECHNICIAN. VITAL SIGNS NOT OBTAINED DUE TO TELEPHONE VISIT. 12/23/2019 1343 NLJ. DISPOSITION & COMMUNICATION FOLLOW UP POST/IN CLINIC (REASON: BILATERAL L4-5-L5-S1 LUMBAR FACET BLOCK, THERAPEUTIC) ELECTRONICALLY SIGNED BY DARRIUS SNYDER ON 12/27/2019 AT 03:22 PM EDT DISCLAIMER : THIS IS A VISIT SUMMARY EXTRACTED FROM THE [employer] CHART. IT IS NOT A COPY OF THE [facility] PROGRESS NOTE. MTDD
== END ==
LOC: M PAIN 09:00
PROVIDERS: ATTEND Nurse Practitioner Family
DX: M47.816 Spondylosis without myelopathy or radiculopathy, lumbar region (principal); I10 Essential (primary) hypertension; Z79.891 Long term (current) use of opiate analgesic; Z79.899 Other long term (current) drug therapy; Z88.0 Allergy status to penicillin; Z88.8 Allergy status to other drugs, medicaments and biological substances

== ENCOUNTER → 2019-12-27 | Outpatient (CLI) | payer MEDICARE, BC | LOC: M LABSMTC 09:48 | PROVIDERS: ATTEND Anesthesiology | DX: Z20.828 Contact with and (suspected) exposure to other viral communicable diseases (principal) | CPT/HCPCS: C9803; U0003 ==

== ENCOUNTER → 2019-12-30 | Outpatient (CLI) | payer MEDICARE, BC ==
[~2019-12-30] MED LIST changes: +BUPIVACAINE HCL 0.25% 30ML VIAL As Ordered ONE; +ISOVUE-M 300 61% 15ML VIAL As Ordered ONE; +LIDOCAINE 1% SDV 30ML VIAL As Ordered ONE; +dexameTHASONE 10MG/1ML VIAL PRES.FREE (J1100 PER 1MG) As Ordered ONE; +diazePAM 5 MG TAB As Ordered ONE; +oxyCODONE 5MG TAB As Ordered ONE
--- NOTE | 2019-12-30 13:29 | REP ---
C-ARM VIEWS LOWER LUMBAR SPINE: CLINICAL HISTORY: Pain. Two C-arm views lower lumbar spine performed during an injection performed by Dr. Dejesus at the bilateral facet joints. Two needles are seen along the lower lumbar facet joints bilaterally. 30 seconds fluoroscopy time utilized. Electronically Signed by Nathan Sesay MD 12/30/2019 02:45 P
--- NOTE | 2019-12-31 00:17 | ECWPNPC ---
PATIENT NAME: ALEJANDRO VELÁSQUEZ : 1945 GENDER: FEMALE VISIT DATE: 12/30/2019 DISCHARGE DATE: 12/30/19 1216 VISIT LOCKED DATE TIME: PHYSICIAN: ADRIANA MURRAY MD RESOURCE: ADRIANA MURRAY MD REASON FOR APPOINTMENT 1. BILATERAL L4-5-L5-S1 LUMBAR FACET BLOCK, THERAPEUTIC HISTORY OF PRESENT ILLNESS HISTORY OF PRESENT ILLNESS: PAIN THE PATIENT DESCRIBES THE PAIN... FALL RISK SCREENING: SCREENING :NO FALLS REPORTED IN THE LAST YEAR CURRENT MEDICATIONS TAKING CLINDAMYCIN HCL 300 MG CAPSULE 1 CAPSULE ORALLY DIRECTED, NOTES: NOT LATELY - BEFORE DENTAL PROCEDURES TAKING LIPITOR 20 MG TABLET 1 TABLET ORALLY ONCE A DAY, NOTES: 12/29/19 TAKING LOSARTAN POTASSIUM-HCTZ 50-12.5 MG TABLET 1 TABLET ORALLY ONCE A DAY, NOTES: 12/29/19 TAKING OMEPRAZOLE 20 MG CAPSULE DELAYED RELEASE 1 TAB ORALLY ONCE DAILY, NOTES: 12/30/19 TAKING PRAMIPEXOLE DIHYDROCHLORIDE 0.5 MG TABLET 1 TABLET BEFORE BEDTIME ORALLY BID, NOTES: 12/29/19 TAKING SINGULAIR 10 MG TABLET 1 TABLET ORALLY ONCE A DAY, NOTES: 12/29/19 TAKING VOLTAREN 1 % GEL TRANSDERMAL DIRECTED, NOTES: 12/29/19 TAKING ZYRTEC 10 MG TABLET 1 TABLET ORALLY ONCE A DAY, NOTES: 12/29/19 TAKING COLACE 100 MG CAPSULE 3 CAPSULES ORALLY ONCE A DAY, NOTES: 12/29/19 TAKING FLUTICASONE PROPIONATE 50 MCG/ACT SUSPENSION 1 SPRAY IN EACH NOSTRIL NASALLY ONCE A DAY NEEDED, NOTES: NONE LATELY TAKING VENTOLIN HFA 108 (90 BASE) MCG/ACT AEROSOL SOLUTION 2 PUFFS NEEDED INHALATION EVERY 4 HRS, NOTES: NONE LATLEY TAKING PROCTOSOL HC 2.5 % CREAM 1 APPLICATION TO AFFECTED AREA RECTAL TWICE A DAY NEEDED, NOTES: NONE LATELY TAKING TRIAMCINOLONE ACETONIDE 0.1 % CREAM 1 APPLICATION TO AFFECTED AREA EXTERNALLY TWICE A DAY NEEDED, NOTES: NONE LATELY TAKING TYLENOL EXTRA STRENGTH 500 MG TABLET 2 TABLETS NEEDED ORALLY EVERY 6 HRS NEEDED, NOTES: 12/28/19 TAKING GLUCOSAMINE CHONDR 500 COMPLEX - CAPSULE 1 TAB ORALLY ONCE DAILY, NOTES: 12/29/19 TAKING ONDANSETRON HCL 8 MG TABLET 1/2 TABLET ORALLY TID PRN, NOTES: NONE LATELY TAKING PREMARIN 0.625 MG/GM CREAM VAGINAL DAILY, NOTES: 12/30/19 TAKING SPIRONOLACTONE 100 MG TABLET 1 TABLET ORALLY DAILY, NOTES: 12/29/19 TAKING ALBUTEROL-IPRATROPIUM 2.5-0.5 MG/3ML SOLUTION 3 ML INHALATION FOUR TIMES A DAY, NOTES: NONE LATELY TAKING ANUCORT-HC 25 MG SUPPOSITORY 1 SUPPOSITORY RECTAL TWICE A DAY NEEDED, NOTES: NONE LATELY TAKING ARNUITY ELLIPTA 100 MCG/ACT AEROSOL POWDER BREATH ACTIVATED 1 PUFF INHALATION ONCE A DAY, NOTES: 12/30/19 TAKING BIOTIN 10 MG CAPSULE ORALLY , NOTES: 12/29/19 TAKING CATHERINE ALLERGY 180 MG TABLET 1 TAB ORALLY ONCE A DAY, NOTES: 12/29/19 TAKING CYCLOBENZAPRINE HCL 5 MG TABLET 1 TABLET ORALLY BEFORE BEDTIME, NOTES: 12/29/19 TAKING FLUCONAZOLE 100 MG TABLET 1 TABLET ORALLY , NOTES: FIRST THREE DAYS OF EACH MONTH TAKING VITAMIN D 50 MCG (2000 UT) TABLET 1 TABLET ORALLY ONCE A DAY, NOTES: 12/29/19 TAKING LYRICA 50 MG CAPSULE 1 CAPSULE ORALLY Q8H TID MDD3, NOTES: 12/29/19 TAKING TRAMADOL HCL 50 MG TABLET 1 ORALLY Q8H PRN MDD3, NOTES: 12/29/19 NOT-TAKING RANITIDINE HCL 150 MG CAPSULE 1 CAPSULE AT BEDTIME ORALLY ONCE A DAY NOT-TAKING GAVISCON 80-20 MG TABLET CHEWABLE 2 TABLETS AFTER MEALS AND AT BEDTIME NEEDED ORALLY FOUR TIMES A DAY, NOTES: RARELY NOT-TAKING MELATONIN 5 MG TABLET 1 TABLET AT BEDTIME NEEDED WITH FOOD ORALLY ONCE A DAY NOT-TAKING MUCINEX ALLERGY 180 MG TABLET 1 TABLET NEEDED ORALLY ONCE A DAY, NOTES: NEEDED MEDICATION LIST REVIEWED AND RECONCILED WITH THE PATIENT PAST MEDICAL HISTORY HTN HYPERCHOLESTREMIA FIBROMYALGIA RESTLESS LEG SYNDROME OSTEOARTHRITIS 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 ASTHMA ALLERGIES PENICILLIN (FOR ALLERGIES USE ONLY): HIVES BELLARGAL: RASH BETA JEANNE (FOR ALLERGIES USE ONLY): DYSPNEA ERGOT ALKALOIDS: NAUSEA/VOMITING SURGICAL HISTORY TUBALIGATION 03/17/75 OVARIAN CYST 02/28/81 LAPROSCOPY,LAPAROTOMY ,BILATERAL CYSTECTOMY 07/09/93 EUA,COLPOSCOPY, LASER VAORIZATION OF THE VAGINA 06/22/98 EUA COLPOOSCOPY, REMOVAL OF VAGINAL CUFF &REPAIR 03/22/99 GALL BLADDER REMOVAL 05/21 ARTHROSCOPIC KNEE SURGERY 12/24 TOTAL RIGHT KNEE REPLACEMENT 03/11/13 HYSTERECTOMY 1992 FAMILY HISTORY FATHER: , DIAGNOSED WITH OTHER MALIGNANT NEOPLASM OF UNSPECIFIED SITE MOTHER: , OTHER MALIGNANT NEOPLASM OF UNSPECIFIED SITE 1 SON(S) , 2 DAUGHTER(S) - HEALTHY. DAD-PROSTATE CA, ALCOHOLICMOM-LEUKEMIA,COLON CA. SOCIAL HISTORY GENERAL: TOBACCO USE ARE YOU A:NONSMOKER LATEX QUESTIONNAIRE LATEX ALLERGY : HAVE YOU EVER DEVELOPED ANY TYPE OF REACTION AFTER HANDLING LATEX PRODUCTS SUCH RUBBER GLOVES, CONDOMS, DIAPHRAGMS, BALLOONS, SOCKS, OR UNDERWEAR?NO LATEX ALLERGY : HAVE YOU EVER DEVELOPED ANY TYPE OF REACTION DURING OR AFTER DENTAL APPOINTMENT, VAGINAL/RECTAL EXAMINATION, SURGICAL PROCEDURE, OR ANY OTHER EXPOSURE?NO DATE ASKED : 12/23/2019 LATEX RISK : HAVE YOU EVER HAD ANY DIFFICULTY BREATHING OR HIVES AFTER EATING OR HANDLING ANY FRUITS, OR VEGETABLES; SUCH KIWI, BANANAS, STONE FRUITS, OR CHESTNUTSNO LATEX RISK : DO YOU HAVE A PREVIOUS PERSONAL HISTORY OF MORE THAN NINE SURGERIES, SPINA BIFIDA, OR REPEATED CATHERIZATIONS? YES - PLEASE INDICATE : > 9 SURGERIES LATEX RISK : ARE YOU FREQUENTLY EXPOSED TO LATEX PRODUCTS IN YOUR OCCUPATION?NO ALCOHOL SCREENING DID YOU HAVE A DRINK CONTAINING ALCOHOL IN THE PAST YEAR?NO POINTS0 INTERPRETATIONNEGATIVE RECREATIONAL DRUG USE DRUG USE?NO CAFFEINE CAFFEINE USE?YES HOW OFTEN AND HOW MUCH? 1 CUP COFFEE/DAILY PENTECOSTAL [id number] EPISCOPALIAN LANGUAGE LANGUAGES SPOKEN:[place] LEARNING BARRIERS / SPECIAL NEEDS BARRIERS TO LEARNING?NO HEARING IMPAIRED?NO VISION IMPAIRED?YES COGNITIVELY IMPAIRED?NO :CORRECTIVE LENSES READINESS TO LEARN?YES LEARNING PREFERENCES?NO LEARNING CAPABILITIES PRESENT?YES EMOTIONAL BARRIERS?NO SPECIAL DEVICES?NO STRUCTURAL MILL SUPERVISOR NEEDED?NO DOMESTIC VIOLENCE DO YOU FEEL SAFE IN YOUR ENVIRONMENT?YES EXERCISE: WALKS, YOGA. NEW PATIENT PAIN DIARY TODAY'S VISITNOTES 12/30/2019 PATIENT DESCRIBES PAIN :ACHING, IT COMES AND GOES, SORE FROM 0-10, WHAT LEVEL IS YOUR PAIN TODAY?4 PRECIPITATING FACTORS STADING STILL, OVER DOING ACTIVITY ALLEVIATING FACTORS TRAMADOL, PHYSICAL THERAPY IMPACT ON FUNCTION YES PAIN CLINIC PFS, CLERGY, PUBLIC HEALTH REFERRALS PFS REFERRAL NEEDED?NO CLERGY REFERRAL NEEDED?NO PUBLIC HEALTH REFERRAL NEEDED?NO HAS THE PATIENT BEEN EDUCATED REGARDING HIS/HER PLAN OF CARE?YES HAS THE PATIENT BEEN EDUCATED REGARDING PAIN, THE RISK FOR PAIN, THE IMPORTANCE OF EFFECTIVE PAIN MANAGEMENT, AND THE PAIN ASSESSMENT PROCESS?YES ADVANCE DIRECTIVE ADVANCE DIRECTIVE DISCUSSED WITH PATIENT:YES HEALTH CARE PROXY [facility] [phone] REVIEWED WITH PATIENT 03/02/18 0915 LAS03/16/18 0935 REVIEWED WITH PT. AD04/27/18 REVIEWED WITH PT BVREVIEWED WITH PATIENT 01/14/19 1049 JSREVIEWED [facility] PATIENT 05/12/19 0852 BVREVIEWED WITH PATIENT 05-24-2019 LAS. HOSPITALIZATION/MAJOR DIAGNOSTIC PROCEDURE [place], HEART ATTACK CAUSED BY STRESS 2013 HYPERTENSION 10/2015 BRONCHITIS & PNEUMO 10/2016 REVIEW OF SYSTEMS REVIEWED BY: PROVIDER: ADRIANA MURRAY MD . CONSTITUTIONAL: ANY CHANGE IN YOUR MEDICAL CONDITION? NO . CHILLS NO . FEVER NO . INFECTION: DO YOU HAVE NEW INFECTIONS? NO . DO YOU HAVE HISTORY OF MRSA? NO . MUSCULOSKELETAL: ANY NEW PATTERNS OF PAIN OR NUMBNESS? NO . GASTROENTEROLOGY: ANY NEW CHANGE IN BOWEL CONTROL? NO . GENITOURINARY: ANY NEW CHANGE IN BLADDER CONTROL? NO . IS THERE A CHANCE YOU COULD BE ? NO . HEMATOLOGY/LYMPH: DO YOU TAKE ANY BLOOD THINNERS? (FOR EXAMPLE- COUMADIN, PLAVIX, AGGRENOX, PLATEL, PRADAXA, OR XARELTO) NO . WHEN WAS YOUR LAST DOSE? DATE: TIME: . NEUROLOGY: HAVE YOU FALLEN IN THE PAST 12 MONTHS? YES, PRIOR TO LAST VISIT . ANY NEW EXTREMITY NUMBNESS OR WEAKNESS? NO . CARDIOLOGY: DO YOU HAVE A PACEMAKER OR DEFIBRILLATOR? NO . RESPIRATORY: HAVE YOU BEEN SICK IN THE PAST WEEK? NO . FEVER NO . FLU LIKE SYMPTOMS? NO . COUGH NO . INTEGUMENTARY: DO YOU HAVE ANY RASHES OR OPEN SORES? NO . ALLERGIC/IMMUNO: ARE YOU ALLERGIC TO IV DYE? NO . ANY NEW ALLERGIES? NO . PSYCHIATRIC: DO YOU HAVE THOUGHTS OF HURTING YOURSELF OR SOMEONE ELSE? NO . ARE YOU ABUSED, NEGLECTED, OR IN AN UNSAFE ENVIRONMENT? NO . ENDOCRINOLOGY: ARE YOU DIABETIC? NO . OTHER: DO YOU NEED ANY PRESCRIPTIONS? NO . IF YES, PLEASE LIST: ____ . ANY NEW PROBLEMS WITH YOUR MEDICATIONS? NO . WHEN DID YOU LAST EAT? 12/29/19 . WHEN DID YOU LAST DRINK? 12/30/19 0600 . WHAT DID YOU LAST DRINK? BLACK COFFEE . NAME OF PERSON DRIVING YOU HOME? . DO YOU HAVE ANY OTHER QUESTIONS OR CONCERNS NO . VITAL SIGNS WT 130.0 LBS, HT 62 IN, BMI 23.77 INDEX, BP 166/77 MM HG, HR 86 /MIN, RR 16 /MIN, TEMP 97.4 F, OXYGEN SAT % 99%, SAFE IN ENV? (Y/N) Y, NA INITIALS AW 1041, REVIEWED BY: EM. 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 ADRIANA MURRAY ELECTRIC RANGE ASSEMBLER NONE ANESTHESIA LOCAL PRE PROCEDURE NOTE THE PATIENT HAS A HISTORY OF CHRONIC LOW BACK PAIN. I EVALUATED THE PATIENT AND REVIEWED THE CHART. I WENT OVER THE RISKS, ALTERNATIVES, AND BENEFITS ASSOCIATED WITH THIS PROCEDURE. I DISCUSSED WITH THE PATIENT THAT THE USE OF STEROIDS MAY CONTRIBUTE TO IMMUNOSUPPRESSION OF HER BODY AGAINST INFECTIONS SUCH THE BATISTA VIRUS, COVID-19. SHE IS AWARE OF THE POTENTIAL COMPLICATIONS ASSOCIATED WITH AN INFECTION OF THIS VIRUS INCLUDING . THE PATIENT WOULD LIKE TO PROCEED AND GIVES CONSENT TO PERFORM THE PROCEDURE. THE PATIENT DENIES UNEXPLAINABLE WEIGHT LOSS, FEVER, CHILLS, OR NEW CHANGES IN URINARY OR BOWEL CONTROL. THE PATIENT IS COVID-19 NEGATIVE DESCRIPTION OF PROCEDURE THE PATIENT WAS BROUGHT TO THE PROCEDURE ROOM AND PLACED IN THE PRONE POSITION. THE LUMBOSACRAL AREA WAS CLEANED WITH CHLORAPREP SOLUTION AND DRAPED ASEPTICALLY. THE PROCEDURE WAS DONE UNDER STERILE CONDITIONS. I CHECKED LATERALITY AND THE LEVEL WHERE THE PROCEDURE WAS GOING TO BE PERFORMED WITH THE PATIENT AND THE SUPPORTING STAFF AT THE MOMENT OF THE TIME OUT IN THE PROCEDURE ROOM. UNDER FLUOROSCOPIC GUIDANCE, THE TARGET POINT WAS SELECTED AT THE RIGHT AND LEFT L4-L5 AND RIGHT AND LEFT L5-S1 FACET JOINTS. TARGET POINT WAS SELECTED AFTER LATERAL ROTATION AND TILT OF THE MAGNIFIER OF THE C-ARM. LIDOCAINE 0.5% WAS USED TO NUMB THE SKIN AND THE SUBCUTANEOUS TISSUE BELOW IT. SPINAL NEEDLES, 22-GAUGE, WERE ADVANCED UNDER FLUOROSCOPIC GUIDANCE AND FOLLOWING PATIENT FEEDBACK UNTIL THE TARGETS WERE TOUCHED. THE POSITION OF THE NEEDLES WAS VERIFIED WITH AP AND LATERAL VIEWS. AFTER PROPER POSITION OF THE NEEDLES WAS ACHIEVED, ISOVUE-M DYE 30% 0.1 ML WAS INJECTED SHOWING ADEQUATE SPREAD OF THE DYE. THEN A SOLUTION OF 1.0 ML OF BUPIVACAINE 0.125% OF DEXAMETHASONE 10 MG WAS INJECTED AT EACH SITE. THERE WAS NO EVIDENCE OF BLOOD, PARESTHESIA OR CEREBROSPINAL FLUID DURING THE PROCEDURE. THE PATIENT WAS SENT TO THE RECOVERY ROOM. THE PATIENT WAS MOVING THE EXTREMITIES AND DOING WELL. THERE WAS NO COMPLICATION DURING THE PROCEDURE. FLUOROSCOPY TIME WAS 30 SECONDS POST PROCEDURE NOTE THE PATIENT WILL BE SEEN IN A FOLLOW UP IN THE NEXT FEW WEEKS. I AM LOOKING FOR LONG LASTING PAIN RELIEF FOR THE PATIENT WITH THIS INJECTION. INSTRUCTIONS WERE GIVEN, QUESTIONS WERE ANSWERED, AND THE PATIENT EXPRESSED UNDERSTANDING AND AGREED WITH THE PLAN. THE PATIENT IS AWARE TO STAY HOME FOR THE NEXT WEEK, IF POSSIBLE, DUE TO COVID-19. I, NENITA DAY, DOCUMENTED THE ABOVE INFORMATION ACTING A SCRIBE FOR DR. MURRAY. 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 IT IS NOT A COPY OF THE [employer] PROGRESS NOTE. MERRILL
== END ==
LOC: M PAIN 10:45
PROVIDERS: ATTEND Anesthesiology
DX: M47.816 Spondylosis without myelopathy or radiculopathy, lumbar region (principal); M47.817 Spondylosis without myelopathy or radiculopathy, lumbosacral region; I10 Essential (primary) hypertension; Z79.891 Long term (current) use of opiate analgesic; Z79.899 Other long term (current) drug therapy; Z88.0 Allergy status to penicillin; Z88.8 Allergy status to other drugs, medicaments and biological substances
CPT/HCPCS: 64493; 64494; J1100; Q9967

== ENCOUNTER → 2020-01-17 | Outpatient (CLI) | payer MEDICARE, BC ==
[~2020-01-17] MED LIST changes: -BUPIVACAINE HCL 0.25% 30ML VIAL As Ordered ONE; -ISOVUE-M 300 61% 15ML VIAL As Ordered ONE; -LIDOCAINE 1% SDV 30ML VIAL As Ordered ONE; -dexameTHASONE 10MG/1ML VIAL PRES.FREE (J1100 PER 1MG) As Ordered ONE; -diazePAM 5 MG TAB As Ordered ONE; -oxyCODONE 5MG TAB As Ordered ONE
--- NOTE | 2020-01-19 02:46 | ECWPNPC ---
PATIENT NAME: ALEJANDRO VELÁSQUEZ : 1945 GENDER: FEMALE VISIT DATE: 01/17/2020 DISCHARGE DATE: 01/17/20 1208 VISIT LOCKED DATE TIME: PHYSICIAN: BRAULIO NARAYANAN RESOURCE: BRAULIO NARAYANAN REASON FOR APPOINTMENT 1. POST BILATERAL L4-5-L5-S1 LUMBAR FACET BLOCK, THERAPEUTIC; [email or web address] PAT DONE HISTORY OF PRESENT ILLNESS GENERAL: PATIENT IS AGREEABLE TO TELEMED VISIT VIA ZOOM. HAD BILATERAL LUMBAR FACET BLOCK, L4-5, L5-S1 ON 12/30/2019. REPORTING SOME IMPROVEMENT IN HER LOW BACK PAIN POSTPROCEDURE. STATES THAT THIS IS NOT GOOD SHE USUALLY FEELS AFTER A THERAPEUTIC LUMBAR FACET BLOCK. RATING PAIN INTENSITY FROM A 3-5/10 VAS. DISCUSSED RADIOFREQUENCY AND DIAGNOSTIC TESTING. PATIENT IS RECEPTIVE.-. FALL RISK SCREENING: SCREENING :ONE FALL WITH INJURY IN THE PAST YEAR PT STATES THAT SHE FELL IN LATE SEPTEMBER WHILE WALKING, SOFT TISSUE INJURY IN WRIST, NO REPORT TO ED PAIN SCREENING: PATIENT HAS A COMPLAINT OF ACUTE OR CHRONIC PAIN :YES LOCATION OF PAIN:LOW BACK INTENSITY OF PAIN (SCALE OF 1 TO 10):2 WHAT DOES YOUR PAIN FEEL LIKE:ACHING, INTERMITTENT, TENDER, SORE DURATION:PERIODIC, AWAKENS FROM SLEEP PAIN IS INCREASED BY:ACTIVITIES PAIN IS DECREASED BY:USE OF PAIN MEDICATIONS, SITTING NURSING NOTE: -. PAIN CENTER INTAKE QUESTIONS: NOTES: PT STATES THAT SHE FEELS THAT THE PROCEDURE WAS NOT EFFECTIVE IT HAS BEEN IN THE PAST. CURRENT PAIN RATING IS 2-3/10. DO YOU HAVE A HISTORY OF MRSA? :YES YES, TWO YEARS AGO ON HER BACK, NO OPEN AREAS, NO ONGOING ISSUES DO YOU TAKE A BLOOD THINNERS? :NO DO YOU HAVE ANY BLEEDING DISORDERS? :NO ANY NEW NUMBNESS OR WEAKNESS IN YOUR LEGS OR ARMS? :NO ANY PACEMAKER,DEFIBRILLATOR, OR DORSAL COLUMN STIMULATOR? :NO DO YOU HAVE ANY RASHES OR OPEN SORES? :YES SMALL OPEN SORE ON LEG DUE TO WALKING IN [place] ARE YOU ALLERGIC TO IV DYE? :NO ARE YOU DIABETIC? :NO ANY NEW PROBLEMS WITH YOUR MEDICATIONS? :NO HAVE YOU RECEIVED A VACCINE IN THE PAST 30 DAYS? :NO DO YOU PLAN TO RECEIVE A VACCINE IN THE NEXT 21 DAYS? :NO DO YOU NEED ANY PRESCRIPTION? :NO DO YOU TAKE ANY IMMUNOSUPPRESSIVE MEDICATIONS? :NO CURRENT MEDICATIONS TAKING CLINDAMYCIN HCL 300 MG CAPSULE 1 CAPSULE ORALLY DIRECTED TAKING LIPITOR 20 MG TABLET 1 TABLET ORALLY ONCE A DAY TAKING LOSARTAN POTASSIUM-HCTZ 50-12.5 MG TABLET 1 TABLET ORALLY ONCE A DAY TAKING OMEPRAZOLE 20 MG CAPSULE DELAYED RELEASE 1 TAB ORALLY ONCE DAILY TAKING PRAMIPEXOLE DIHYDROCHLORIDE 0.5 MG TABLET 1 TABLET BEFORE BEDTIME ORALLY BID TAKING SINGULAIR 10 MG TABLET 1 TABLET ORALLY ONCE A DAY TAKING VOLTAREN 1 % GEL TRANSDERMAL DIRECTED TAKING ZYRTEC 10 MG TABLET 1 TABLET ORALLY ONCE A DAY TAKING COLACE 100 MG CAPSULE 3 CAPSULES ORALLY ONCE A DAY TAKING FLUTICASONE PROPIONATE 50 MCG/ACT SUSPENSION 1 SPRAY IN EACH NOSTRIL NASALLY ONCE A DAY NEEDED TAKING VENTOLIN HFA 108 (90 BASE) MCG/ACT AEROSOL SOLUTION 2 PUFFS NEEDED INHALATION EVERY 4 HRS TAKING PROCTOSOL HC 2.5 % CREAM 1 APPLICATION TO AFFECTED AREA RECTAL TWICE A DAY NEEDED TAKING TRIAMCINOLONE ACETONIDE 0.1 % CREAM 1 APPLICATION TO AFFECTED AREA EXTERNALLY TWICE A DAY NEEDED TAKING TYLENOL EXTRA STRENGTH 500 MG TABLET 2 TABLETS NEEDED ORALLY EVERY 6 HRS NEEDED TAKING GLUCOSAMINE CHONDR 500 COMPLEX - CAPSULE 1 TAB ORALLY ONCE DAILY TAKING ONDANSETRON HCL 8 MG TABLET 1/2 TABLET ORALLY TID PRN TAKING PREMARIN 0.625 MG/GM CREAM VAGINAL DAILY TAKING SPIRONOLACTONE 100 MG TABLET 1 TABLET ORALLY DAILY TAKING ALBUTEROL-IPRATROPIUM 2.5-0.5 MG/3ML SOLUTION 3 ML INHALATION FOUR TIMES A DAY TAKING ANUCORT-HC 25 MG SUPPOSITORY 1 SUPPOSITORY RECTAL TWICE A DAY NEEDED TAKING ARNUITY ELLIPTA 100 MCG/ACT AEROSOL POWDER BREATH ACTIVATED 1 PUFF INHALATION ONCE A DAY TAKING BIOTIN 10 MG CAPSULE ORALLY TAKING CATHERINE ALLERGY 180 MG TABLET 1 TAB ORALLY ONCE A DAY TAKING CYCLOBENZAPRINE HCL 5 MG TABLET 1 TABLET ORALLY BEFORE BEDTIME TAKING FLUCONAZOLE 100 MG TABLET 1 TABLET ORALLY TAKING VITAMIN D 50 MCG (1999 UT) TABLET 1 TABLET ORALLY ONCE A DAY TAKING LYRICA 50 MG CAPSULE 1 CAPSULE ORALLY Q8H TID MDD3 TAKING TRAMADOL HCL 50 MG TABLET 1 ORALLY Q8H PRN MDD3 NOT-TAKING RANITIDINE HCL 150 MG CAPSULE 1 CAPSULE AT BEDTIME ORALLY ONCE A DAY NOT-TAKING GAVISCON 80-20 MG TABLET CHEWABLE 2 TABLETS AFTER MEALS AND AT BEDTIME NEEDED ORALLY FOUR TIMES A DAY, NOTES: RARELY NOT-TAKING MELATONIN 5 MG TABLET 1 TABLET AT BEDTIME NEEDED WITH FOOD ORALLY ONCE A DAY NOT-TAKING MUCINEX ALLERGY 180 MG TABLET 1 TABLET NEEDED ORALLY ONCE A DAY, NOTES: NEEDED MEDICATION LIST REVIEWED AND RECONCILED WITH THE PATIENT PAST MEDICAL HISTORY HTN HYPERCHOLESTREMIA FIBROMYALGIA RESTLESS LEG SYNDROME OSTEOARTHRITIS 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 ASTHMA ALLERGIES PENICILLIN (FOR ALLERGIES USE ONLY): HIVES BELLARGAL: RASH BETA JEANEN (FOR ALLERGIES USE ONLY): DYSPNEA ERGOT ALKALOIDS: NAUSEA/VOMITING SURGICAL HISTORY TUBALIGATION 03/17/75 OVARIAN CYST 02/28/81 LAPROSCOPY,LAPAROTOMY ,BILATERAL CYSTECTOMY 07/09/93 EUA,COLPOSCOPY, LASER VAORIZATION OF THE VAGINA 06/22/98 EUA COLPOOSCOPY, REMOVAL OF VAGINAL CUFF &REPAIR 03/22/99 GALL BLADDER REMOVAL 05/21 ARTHROSCOPIC KNEE SURGERY 12/24 TOTAL RIGHT KNEE REPLACEMENT 03/11/13 HYSTERECTOMY 1992 FAMILY HISTORY FATHER: , DIAGNOSED WITH OTHER MALIGNANT NEOPLASM OF UNSPECIFIED SITE MOTHER: , OTHER MALIGNANT NEOPLASM OF UNSPECIFIED SITE 1 SON(S) , 2 DAUGHTER(S) - HEALTHY. DAD-PROSTATE CA, ALCOHOLICMOM-LEUKEMIA,COLON CA. SOCIAL HISTORY GENERAL: TOBACCO USE ARE YOU A:NONSMOKER LATEX QUESTIONNAIRE LATEX ALLERGY : HAVE YOU EVER DEVELOPED ANY TYPE OF REACTION AFTER HANDLING LATEX PRODUCTS SUCH RUBBER GLOVES, CONDOMS, DIAPHRAGMS, BALLOONS, SOCKS, OR UNDERWEAR?NO LATEX ALLERGY : HAVE YOU EVER DEVELOPED ANY TYPE OF REACTION DURING OR AFTER DENTAL APPOINTMENT, VAGINAL/RECTAL EXAMINATION, SURGICAL PROCEDURE, OR ANY OTHER EXPOSURE?NO LATEX RISK : HAVE YOU EVER HAD ANY DIFFICULTY BREATHING OR HIVES AFTER EATING OR HANDLING ANY FRUITS, OR VEGETABLES; SUCH KIWI, BANANAS, STONE FRUITS, OR CHESTNUTSNO LATEX RISK : DO YOU HAVE A PREVIOUS PERSONAL HISTORY OF MORE THAN NINE SURGERIES, SPINA BIFIDA, OR REPEATED CATHERIZATIONS? YES - PLEASE INDICATE : > 9 SURGERIES LATEX RISK : ARE YOU FREQUENTLY EXPOSED TO LATEX PRODUCTS IN YOUR OCCUPATION?NO DATE ASKED : 01/16/2020 ALCOHOL SCREENING DID YOU HAVE A DRINK CONTAINING ALCOHOL IN THE PAST YEAR?NO POINTS0 INTERPRETATIONNEGATIVE RECREATIONAL DRUG USE DRUG USE?NO CAFFEINE CAFFEINE USE?YES HOW OFTEN AND HOW MUCH? 1 CUP COFFEE/DAILY [employer]IST [id number] EVANGELICAL LANGUAGE LANGUAGES SPOKEN:VIETNAMESE LEARNING BARRIERS / SPECIAL NEEDS BARRIERS TO LEARNING?NO HEARING IMPAIRED?NO VISION IMPAIRED?YES COGNITIVELY IMPAIRED?NO :CORRECTIVE LENSES READINESS TO LEARN?YES LEARNING PREFERENCES?NO LEARNING CAPABILITIES PRESENT?YES EMOTIONAL BARRIERS?NO SPECIAL DEVICES?NO LOAN AUDITOR NEEDED?NO DOMESTIC VIOLENCE DO YOU FEEL SAFE IN YOUR ENVIRONMENT?YES EXERCISE: WALKS, YOGA. NEW PATIENT PAIN DIARY TODAY'S VISITNOTES PATIENT DESCRIBES PAIN :ACHING, IT COMES AND GOES, SORE FROM 0-10, WHAT LEVEL IS YOUR PAIN TODAY?4 PRECIPITATING FACTORS STADING STILL, OVER DOING ACTIVITY ALLEVIATING FACTORS TRAMADOL, PHYSICAL THERAPY IMPACT ON FUNCTION YES PAIN CLINIC PFS, CLERGY, PUBLIC HEALTH REFERRALS PFS REFERRAL NEEDED?NO CLERGY REFERRAL NEEDED?NO PUBLIC HEALTH REFERRAL NEEDED?NO WAS THE PROVIDER NOTIFIED OF ANY PERTINENT INFO?YES HAS THE PATIENT BEEN EDUCATED REGARDING HIS/HER PLAN OF CARE?YES HAS THE PATIENT BEEN EDUCATED REGARDING PAIN, THE RISK FOR PAIN, THE IMPORTANCE OF EFFECTIVE PAIN MANAGEMENT, AND THE PAIN ASSESSMENT PROCESS?YES ADVANCE DIRECTIVE ADVANCE DIRECTIVE DISCUSSED WITH PATIENT:YES HEALTH CARE PROXY LYNDSE[facility] [phone] HOSPITALIZATION/MAJOR DIAGNOSTIC PROCEDURE [place], HEART ATTACK CAUSED BY STRESS 2013 HYPERTENSION 10/2015 BRONCHITIS & PNEUMO 10/2016 REVIEW OF SYSTEMS CONSTITUTIONAL: ANY RECENT FEVER OR ILLNESS NO . CHILLS NO . GASTROENTEROLOGY: BOWEL INCONTINENCE NO . ANY NEW CHANGE IN BOWEL CONTROL? NO . ABDOMINAL PAIN NO . CONSTIPATION NO . GENITOURINARY: ANY NEW CHANGE IN BLADDER CONTROL? NO . IS THERE A CHANCE YOU COULD BE ? NO . URINARY INCONTINENCE NO . CARDIOLOGY: CHEST PRESSURE NO . CHEST PAIN NO . RESPIRATORY: COUGH NO . SHORTNESS OF BREATH NO . EXAMINATION GENERAL EXAMINATION: GENERALNO ACUTE DISTRESS, WELL NOURISHED AND HYDRATED. PSYCHAPPROPRIATE MOOD AND AFFECT . FACE:UNREMARKABLE. VIRTUAL VISIT/PHYSICAL EXAM PERFORMED TODAY: PATIENT DEMONSTRATES INCREASED PAIN WITH EXTENSION OF SPINE AND FACET LOADING OVER THE L4-5, L5-S1 REGION. ASSESSMENTS SPONDYLOSIS OF LUMBAR REGION WITHOUT MYELOPATHY OR RADICULOPATHY - M47.816 (PRIMARY) SPONDYLOSIS OF LUMBOSACRAL REGION WITHOUT MYELOPATHY OR RADICULOPATHY - M47.817 TREATMENT SPONDYLOSIS OF LUMBAR REGION WITHOUT MYELOPATHY OR RADICULOPATHY NOTES: DISCUSSED DIAGNOSTIC TESTING AND RADIOFREQUENCY PROCEDURE. PATIENT HAS HAD FAVORABLE RESPONSE WITH THERAPEUTIC LUMBAR FACET BLOCK AND WOULD LIKE TO PROCEED WITH RADIOFREQUENCY. SHE ALSO VOICES THE DESIRE TO TAKE LESS PAIN MEDICATION. TOTAL TIME SPENT DURING TELEMED VISIT WAS APPROXIMATELY 12 MINUTES. BILATERAL DIAGNOSTIC FACET BLOCK, L4-5, L5-S1. DISPOSITION & COMMUNICATION FOLLOW UP 2WKS POST VIRTUAL OR IN CLINIC (REASON: BILATERAL DIAGNOSTIC FACET BLOCK, L4-5, L5-S1) ELECTRONICALLY SIGNED BY DARRIUS SNYDER ON 01/18/2020 AT 02:38 PM EDT DISCLAIMER : THIS IS A VISIT SUMMARY EXTRACTED FROM THE [employer] CHART. IT IS NOT A COPY OF THE [employer] PROGRESS NOTE. MERRILL
== END ==
LOC: M TMPAIN 09:45 → M PAIN 09:45
PROVIDERS: ATTEND Nurse Practitioner Family
DX: M47.816 Spondylosis without myelopathy or radiculopathy, lumbar region (principal); M47.817 Spondylosis without myelopathy or radiculopathy, lumbosacral region

== ENCOUNTER → 2020-01-30 | Outpatient (CLI) | payer MEDICARE, BC | LOC: M LABSMTC 11:11 | PROVIDERS: ATTEND Anesthesiology | DX: Z03.818 Encounter for observation for suspected exposure to other biological agents ruled out (principal) | CPT/HCPCS: C9803; U0003 ==

== ENCOUNTER → 2020-02-02 | Outpatient (CLI) | payer MEDICARE, BC ==
[~2020-02-02] MED LIST changes: +BUPIVACAINE HCL 0.25% 30ML VIAL As Ordered ONE; +ISOVUE-M 300 61% 15ML VIAL As Ordered ONE; +LIDOCAINE 1% SDV 30ML VIAL As Ordered ONE
--- NOTE | 2020-02-02 13:53 | REP ---
Partial lumbar spine series: Three views . History: Injection procedure for pain. 47 seconds of fluoroscopy time is reported. Findings: A sequence of three fluoroscopically obtained last image hold procedural spot radiographs of the lumbar spine document needle position and contrast injection associated with injection procedure. Electronically Signed by Trent Rothman MD 02/02/2020 01:45 P
--- NOTE | 2020-02-03 02:14 | ECWPNPC ---
PATIENT NAME: ALEJANDRO VELÁSQUEZ : 1945 GENDER: FEMALE VISIT DATE: 02/02/2020 DISCHARGE DATE: 02/02/20 1116 VISIT LOCKED DATE TIME: PHYSICIAN: ADRIANA MURRAY MD RESOURCE: ADRIANA MURRAY MD REASON FOR APPOINTMENT 1. BILATERAL DIAGNOSTIC FACET BLOCK, L4-5, L5-S1/PAT DONE HISTORY OF PRESENT ILLNESS GENERAL: -. FALL RISK SCREENING: SCREENING :ONE FALL WITH INJURY IN THE PAST YEAR PAIN SCREENING: PATIENT HAS A COMPLAINT OF ACUTE OR CHRONIC PAIN :YES 02/01/20 LOCATION OF PAIN: LOW BACK BOTH SIDES INTENSITY OF PAIN (SCALE OF 1 TO 10):4 TODAYS PAIN PRE PROCEDURE IS 8 WHAT DOES YOUR PAIN FEEL LIKE:ACHING, CONTINOUS, INTERMITTENT, SORE PAIN IS INCREASED BY: ACTIVITY PAIN IS DECREASED BY: REST, MEDS NURSING NOTE: -. PAIN CENTER INTAKE QUESTIONS: DO YOU HAVE A HISTORY OF MRSA? :YES 2 YEARS AGO ON HER BACK DO YOU TAKE A BLOOD THINNERS? :NO DO YOU HAVE ANY BLEEDING DISORDERS? :NO ANY NEW NUMBNESS OR WEAKNESS IN YOUR LEGS OR ARMS? :NO ANY PACEMAKER,DEFIBRILLATOR, OR DORSAL COLUMN STIMULATOR? :NO DO YOU HAVE ANY RASHES OR OPEN SORES? :NO ARE YOU ALLERGIC TO IV DYE? :NO ARE YOU DIABETIC? :NO ANY NEW PROBLEMS WITH YOUR MEDICATIONS? :NO HAVE YOU RECEIVED A VACCINE IN THE PAST 30 DAYS? :NO DO YOU PLAN TO RECEIVE A VACCINE IN THE NEXT 21 DAYS? :NO DO YOU TAKE ANY IMMUNOSUPPRESSIVE MEDICATIONS? :NO ANY HISTORY OF SEIZURES? :NO ANY HISTORY OF CARDIAC ISSUES OR EVENTS? :YES AK 5 YEARS AGO DO YOU HAVE SLEEP APNEA? : NO. ANY RECENT HEAD INJURY? :NO DO YOU HAVE ANY NEW INFECTIONS? :NO IS THERE A CHANCE YOU COULD BE ? :NO ARE YOU BREAST FEEDING? :NO WHEN DID YOU LAST EAT? : LAST NIGHT 2100 WHEN DID YOU LAST DRINK? : -EARLY THIS AM 0600 WHAT DID YOU LAST DRINK? : -BLACK COFFEE NAME OF PERSON DRIVING YOU HOME? : -JORDEN DO YOU HAVE ANY OTHER QUESTIONS OR CONCERNS? : - CURRENT MEDICATIONS TAKING CLINDAMYCIN HCL 300 MG CAPSULE 1 CAPSULE ORALLY DIRECTED, NOTES: ONLY PRIOR TO DENTAL TAKING LIPITOR 20 MG TABLET 1 TABLET ORALLY ONCE A DAY, NOTES: 2099 TAKING LOSARTAN POTASSIUM-HCTZ 50-12.5 MG TABLET 1 TABLET ORALLY ONCE A DAY, NOTES: 03-02-20699 TAKING OMEPRAZOLE 20 MG CAPSULE DELAYED RELEASE 1 TAB ORALLY ONCE DAILY, NOTES: 02-02-20699 TAKING PRAMIPEXOLE DIHYDROCHLORIDE 0.5 MG TABLET 1 TABLET BEFORE BEDTIME ORALLY BID, NOTES: 02-01-202099 TAKING SINGULAIR 10 MG TABLET 1 TABLET ORALLY ONCE A DAY, NOTES: 02-01-20799 TAKING VOLTAREN 1 % GEL TRANSDERMAL DIRECTED, NOTES: NOT LATELY TAKING ZYRTEC 10 MG TABLET 1 TABLET ORALLY ONCE A DAY, NOTES: 02-01-202099 TAKING COLACE 100 MG CAPSULE 3 CAPSULES ORALLY ONCE A DAY, NOTES: 02-01-202099 TAKING FLUTICASONE PROPIONATE 50 MCG/ACT SUSPENSION 1 SPRAY IN EACH NOSTRIL NASALLY ONCE A DAY NEEDED, NOTES: NOT LATELY TAKING VENTOLIN HFA 108 (90 BASE) MCG/ACT AEROSOL SOLUTION 2 PUFFS NEEDED INHALATION EVERY 4 HRS, NOTES: ONLY NEEDED TAKING PROCTOSOL HC 2.5 % CREAM 1 APPLICATION TO AFFECTED AREA RECTAL TWICE A DAY NEEDED, NOTES: NEEDED TAKING TRIAMCINOLONE ACETONIDE 0.1 % CREAM 1 APPLICATION TO AFFECTED AREA EXTERNALLY TWICE A DAY NEEDED, NOTES: NEEDED TAKING TYLENOL EXTRA STRENGTH 500 MG TABLET 2 TABLETS NEEDED ORALLY EVERY 6 HRS NEEDED, NOTES: A COUPLE DAYS TAKING GLUCOSAMINE CHONDR 500 COMPLEX - CAPSULE 1 TAB ORALLY ONCE DAILY, NOTES: 02-01-20799 TAKING ONDANSETRON HCL 8 MG TABLET 1/2 TABLET ORALLY TID PRN, NOTES: NOT LATELY TAKING PREMARIN 0.625 MG/GM CREAM VAGINAL DAILY, NOTES: 02-02-20599 TAKING SPIRONOLACTONE 100 MG TABLET 1 TABLET ORALLY DAILY, NOTES: 02-02-20699 TAKING ALBUTEROL-IPRATROPIUM 2.5-0.5 MG/3ML SOLUTION 3 ML INHALATION FOUR TIMES A DAY, NOTES: NOT LATELY TAKING ANUCORT-HC 25 MG SUPPOSITORY 1 SUPPOSITORY RECTAL TWICE A DAY NEEDED, NOTES: NEEDED TAKING ARNUITY ELLIPTA 100 MCG/ACT AEROSOL POWDER BREATH ACTIVATED 1 PUFF INHALATION ONCE A DAY, NOTES: 02-02-20699 TAKING BIOTIN 10 MG CAPSULE ORALLY , NOTES: 02-01-20799 TAKING CATHERINE ALLERGY 180 MG TABLET 1 TAB ORALLY ONCE A DAY, NOTES: 02-01-20699 TAKING CYCLOBENZAPRINE HCL 5 MG TABLET 1 TABLET ORALLY BEFORE BEDTIME, NOTES: 01-31-20699 TAKING FLUCONAZOLE 100 MG TABLET 1 TABLET ORALLY , NOTES: FIRST FEW DAYS OF EACH MONTH TAKING VITAMIN D 50 MCG (1999 UT) TABLET 1 TABLET ORALLY ONCE A DAY, NOTES: 02-02-20699 TAKING LYRICA 50 MG CAPSULE 1 CAPSULE ORALLY Q8H TID MDD3, NOTES: 01-31-202099 TAKING TRAMADOL HCL 50 MG TABLET 1 ORALLY Q8H PRN MDD3, NOTES: 01-31-20 09 NOT-TAKING RANITIDINE HCL 150 MG CAPSULE 1 CAPSULE AT BEDTIME ORALLY ONCE A DAY NOT-TAKING GAVISCON 80-20 MG TABLET CHEWABLE 2 TABLETS AFTER MEALS AND AT BEDTIME NEEDED ORALLY FOUR TIMES A DAY, NOTES: RARELY NOT-TAKING MELATONIN 5 MG TABLET 1 TABLET AT BEDTIME NEEDED WITH FOOD ORALLY ONCE A DAY NOT-TAKING MUCINEX ALLERGY 180 MG TABLET 1 TABLET NEEDED ORALLY ONCE A DAY, NOTES: NEEDED MEDICATION LIST REVIEWED AND RECONCILED WITH THE PATIENT PAST MEDICAL HISTORY HTN HYPERCHOLESTREMIA FIBROMYALGIA RESTLESS LEG SYNDROME OSTEOARTHRITIS 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 ASTHMA ALLERGIES PENICILLIN (FOR ALLERGIES USE ONLY): HIVES BELLARGAL: RASH BETA JEANNE (FOR ALLERGIES USE ONLY): DYSPNEA ERGOT ALKALOIDS: NAUSEA/VOMITING SURGICAL HISTORY TUBALIGATION 03/17/75 OVARIAN CYST 02/28/81 LAPROSCOPY,LAPAROTOMY ,BILATERAL CYSTECTOMY 07/09/93 EUA,COLPOSCOPY, LASER VAORIZATION OF THE VAGINA 06/22/98 EUA COLPOOSCOPY, REMOVAL OF VAGINAL CUFF &REPAIR 03/22/99 GALL BLADDER REMOVAL 05/21 ARTHROSCOPIC KNEE SURGERY 12/24 TOTAL RIGHT KNEE REPLACEMENT 03/11/13 HYSTERECTOMY 1992 FAMILY HISTORY FATHER: , DIAGNOSED WITH OTHER MALIGNANT NEOPLASM OF UNSPECIFIED SITE MOTHER: , OTHER MALIGNANT NEOPLASM OF UNSPECIFIED SITE 1 SON(S) , 2 DAUGHTER(S) - HEALTHY. DAD-PROSTATE CA, ALCOHOLICMOM-LEUKEMIA,COLON CA. SOCIAL HISTORY GENERAL: TOBACCO USE ARE YOU A:NONSMOKER LATEX QUESTIONNAIRE LATEX ALLERGY : HAVE YOU EVER DEVELOPED ANY TYPE OF REACTION AFTER HANDLING LATEX PRODUCTS SUCH RUBBER GLOVES, CONDOMS, DIAPHRAGMS, BALLOONS, SOCKS, OR UNDERWEAR?NO LATEX ALLERGY : HAVE YOU EVER DEVELOPED ANY TYPE OF REACTION DURING OR AFTER DENTAL APPOINTMENT, VAGINAL/RECTAL EXAMINATION, SURGICAL PROCEDURE, OR ANY OTHER EXPOSURE?NO DATE ASKED : 01/16/2020 LATEX RISK : HAVE YOU EVER HAD ANY DIFFICULTY BREATHING OR HIVES AFTER EATING OR HANDLING ANY FRUITS, OR VEGETABLES; SUCH KIWI, BANANAS, STONE FRUITS, OR CHESTNUTSNO LATEX RISK : DO YOU HAVE A PREVIOUS PERSONAL HISTORY OF MORE THAN NINE SURGERIES, SPINA BIFIDA, OR REPEATED CATHERIZATIONS? YES - PLEASE INDICATE : > 9 SURGERIES LATEX RISK : ARE YOU FREQUENTLY EXPOSED TO LATEX PRODUCTS IN YOUR OCCUPATION?NO ALCOHOL SCREENING DID YOU HAVE A DRINK CONTAINING ALCOHOL IN THE PAST YEAR?NO POINTS0 INTERPRETATIONNEGATIVE RECREATIONAL DRUG USE DRUG USE?NO CAFFEINE CAFFEINE USE?YES HOW OFTEN AND HOW MUCH? 1 CUP COFFEE/DAILY BAPTISM [id number] ANABAPTISM LANGUAGE LANGUAGES SPOKEN:TAMAZIGHT LEARNING BARRIERS / SPECIAL NEEDS BARRIERS TO LEARNING?NO HEARING IMPAIRED?NO VISION IMPAIRED?YES COGNITIVELY IMPAIRED?NO :CORRECTIVE LENSES READINESS TO LEARN?YES LEARNING PREFERENCES?NO LEARNING CAPABILITIES PRESENT?YES EMOTIONAL BARRIERS?NO SPECIAL DEVICES?NO MEDICAL RECORD TRANSCRIBER NEEDED?NO DOMESTIC VIOLENCE DO YOU FEEL SAFE IN YOUR ENVIRONMENT?YES EXERCISE: WALKS, YOGA. PAIN CLINIC PFS, CLERGY, PUBLIC HEALTH REFERRALS PFS REFERRAL NEEDED?NO CLERGY REFERRAL NEEDED?NO PUBLIC HEALTH REFERRAL NEEDED?NO HAS THE PATIENT BEEN EDUCATED REGARDING HIS/HER PLAN OF CARE?YES HAS THE PATIENT BEEN EDUCATED REGARDING PAIN, THE RISK FOR PAIN, THE IMPORTANCE OF EFFECTIVE PAIN MANAGEMENT, AND THE PAIN ASSESSMENT PROCESS?YES ADVANCE DIRECTIVE ADVANCE DIRECTIVE DISCUSSED WITH PATIENT:YES HEALTH CARE PROXY [facility]ND[facility] [phone] HOSPITALIZATION/MAJOR DIAGNOSTIC PROCEDURE [place], HEART ATTACK CAUSED BY STRESS 2013 HYPERTENSION 10/2015 BRONCHITIS & PNEUMO 10/2016 VITAL SIGNS WT 131.8 LBS, HT 62 IN, BMI 24.10 INDEX, BP 178/83 MM HG, HR 88 /MIN, RR 16 /MIN, TEMP 98.4 F, OXYGEN SAT % 99%, SAFE IN ENV? (Y/N) Y, NA INITIALS VA 09:51, REVIEWED BY: VANESSA. EXAMINATION GENERAL EXAMINATION: THE PATIENT IS ALERT, ORIENTED TIMES THREE AND COOPERATIVE. HEART SHOWS REGULAR RHYTHM, NO MURMURS AND NO GALLOPS. LUNGS ARE CLEAR TO AUSCULTATION. ASSESSMENTS SPONDYLOSIS OF LUMBAR REGION WITHOUT MYELOPATHY OR RADICULOPATHY - M47.816 (PRIMARY) SPONDYLOSIS OF LUMBOSACRAL REGION WITHOUT MYELOPATHY OR RADICULOPATHY - M47.817 TREATMENT SPONDYLOSIS OF LUMBAR REGION WITHOUT MYELOPATHY OR RADICULOPATHY [facility] FACET BLOCK (PAIN)[id number] OTHERS CLINICAL NOTES: PRE SCREENING CALL DONE 02/01/20 EM. PROCEDURES PAIN NURSING RECORD PRE-PROCEDURE IV SITE NA, PRE-PROCEDURE ORAL MEDICATIONS NONE PROCEDURE IN ROOM 1040, PHYSICIAN IN ROOM 1044, START 1051, FINISH 1101, PHYSICIAN OUT OF ROOM 1105, OUT OF ROOM 1110, STEROID NO, O2 ROOM AIR, ECG NSY, PATIENT SHIELDED YES, SAFETY STRAP YES, PREP N MIRIAM, DRESSING DR MURRAY RESP: 1. REGULAR, NO DYSPNEA COLOR: 1. PINK SKIN: 1. WARM, DRY POSITION: 1. PRONE VITALS: 144/68 75 95% KGULLO RN POST PROCEDURE 142/65 77 96% KGULLO COAL MILL OPERATOR: POST PAIN STATES PAIN IS A 1 WE REVIEWED THE DIARY WITH ALL QUESTIONS BEING ANSWERED, TEACHING COMPLETED, PATIENT ACKNOWLEDGES UNDERSTANDING WENT OVER ENTIRE DC INSTRUCTION SHEET AND THE PAIN DIARY ANSWERING ALL QUESTIONS PT THEN INSTRUCTED TO CHECK OUT AT CONTINUOUS PROCESS COFFEE ROASTER, PATIENT DISCHARGED AT 1118 PN LUMBAR FACET BLOCK DIAGNOSTIC PRE PROCEDURE DIAGNOSIS LUMBAR SPONDYLOSIS, LUMBOSACRAL SPONDYLOSIS POST PROCEDURE DIAGNOSIS LUMBAR SPONDYLOSIS, LUMBOSACRAL SPONDYLOSIS PROCEDURE BILATERAL L4-L5 AND BILATERAL L5-S1 FACET BLOCK DIAGNOSTIC NUMBER [address] ADRIANA MURRAY MACHINE INKER NONE ANESTHESIA LOCAL PRE PROCEDURE NOTE THE PATIENT WITH HISTORY OF CHRONIC LOW BACK PAIN. I EVALUATED THE PATIENT AND REVIEWED THE CHART. I WENT OVER THE RISKS, ALTERNATIVES, AND BENEFITS ASSOCIATED WITH THIS PROCEDURE. THE PATIENT WOULD LIKE TO PROCEED AND GAVE CONSENT TO PERFORM THE PROCEDURE. AGREED WITH THE PATIENT WE ARE DOING THIS PROCEDURE TO DETERMINE IF THE PATIENT IS A CANDIDATE FOR A RADIOFREQUENCY ABLATION OF THE FACETS JOINTS. THE PATIENT DENIES UNEXPLAINABLE WEIGHT LOSS, FEVER, CHILLS, OR NEW CHANGES IN URINARY OR BOWEL CONTROL. THE PATIENT IS COVID-19 NEGATIVE DESCRIPTION OF PROCEDURE THE PATIENT WAS BROUGHT TO THE PROCEDURE ROOM AND PLACED IN THE PRONE POSITION. THE LUMBOSACRAL AREA WAS CLEANED WITH CHLORAPREP SOLUTION AND DRAPED ASEPTICALLY. THE PROCEDURE WAS DONE UNDER STERILE CONDITIONS. I CHECKED LATERALITY AND THE LEVEL WHERE THE PROCEDURE WAS GOING TO BE PERFORMED WITH THE PATIENT AND THE SUPPORTING STAFF AT THE MOMENT OF THE TIME OUT IN THE PROCEDURE ROOM. UNDER FLUOROSCOPIC GUIDANCE, TARGETS WERE SELECTED AT THE INTERSECTION OF THE LEFT AND RIGHT TRANSVERSE PROCESS OF L4, L5 AND ALA OF S1 WITH ITS RESPECTIVE SUPERIOR ARTICULAR PROCESS. LIDOCAINE WAS USED TO NUMB THE SKIN AND THE SUBCUTANEOUS TISSUE BELOW IT. SPINAL NEEDLE, 22-GAUGE, WAS ADVANCED UNDER FLUOROSCOPIC GUIDANCE AND FOLLOWING PATIENT FEEDBACK UNTIL THE TARGETS WERE REACHED. POSITION OF THE NEEDLES WAS VERIFIED WITH AP AND LATERAL VIEWS. AFTER PROPER POSITION OF THE NEEDLES WAS ACHIEVED, ISOVUE-M DYE 30%, 0.1 ML, WAS INJECTED AT EACH SITE SHOWING ADEQUATE SPREAD OF THE DYE. THEN A SOLUTION OF 0.4 ML OF BUPIVACAINE 0.25% WAS INJECTED AT EACH SITE. THERE WAS NO EVIDENCE OF BLOOD, PARESTHESIA OR CEREBROSPINAL FLUID DURING THE PROCEDURE. THE PATIENT WAS SENT TO THE RECOVERY ROOM. THE PATIENT WAS MOVING THE EXTREMITIES AND DOING WELL. THERE WAS NO COMPLICATION DURING THE PROCEDURE. EBL LESS THAN 5 ML. FLUOROSCOPY TIME WAS 47 SECONDS POST PROCEDURE NOTE THE PATIENT WILL DOCUMENT THE PAIN LEVEL AND RESPONSE TO THIS PROCEDURE EVERY 1 HOUR. THE PATIENT WILL BE SEEN IN A FOLLOW UP IN THE NEXT FEW WEEKS. FURTHER DETERMINATION FOR THE PATIENT'S CASE WILL BE DONE AT THE NEXT VISIT. INSTRUCTIONS WERE GIVEN, QUESTIONS WERE ANSWERED, AND THE PATIENT EXPRESSED UNDERSTANDING AND AGREED WITH THE PLAN. I, NENITA DAY, DOCUMENTED THE ABOVE INFORMATION ACTING A SCRIBE FOR DR. MURRAY. I HAVE REVIEWED THE ABOVE DOCUMENT, WRITTEN BY NENITA DAY, MACHINE OPERATOR CANE CUTTER, AND I VERIFY THAT IT IS ACCURATE PROCEDURE CODES 40712 INJ PARAVERT F JNT L/S 1 LEV, MODIFIERS: 50 [id number] INJ PARAVERT F JNT L/S 2 LEV, MODIFIERS: 50 DISPOSITION & COMMUNICATION FOLLOW UP F/UP WITH PERSONNEL RECRUITER (REASON: POST LFBD #1 ZACH L4-L5, L5-S1) ELECTRONICALLY SIGNED BY ADRIANA MURRAY MD, MD ON 02/02/2020 AT 04:57 PM EDT DISCLAIMER : THIS IS A VISIT SUMMARY EXTRACTED FROM THE [employer] CHART. IT IS NOT A COPY OF THE [employer] PROGRESS NOTE. MTDD
== END ==
LOC: M PAIN 09:45
PROVIDERS: ATTEND Anesthesiology
DX: M47.816 Spondylosis without myelopathy or radiculopathy, lumbar region (principal); M47.817 Spondylosis without myelopathy or radiculopathy, lumbosacral region
CPT/HCPCS: 64493; 64494; Q9967

== ENCOUNTER → 2020-02-16 | Outpatient (CLI) | payer MEDICARE, BC ==
[~2020-02-16] MED LIST changes: -BUPIVACAINE HCL 0.25% 30ML VIAL As Ordered ONE; -ISOVUE-M 300 61% 15ML VIAL As Ordered ONE; -LIDOCAINE 1% SDV 30ML VIAL As Ordered ONE
--- NOTE | 2020-03-01 02:42 | ECWPNPC ---
PATIENT NAME: ALEJANDRO VELÁSQUEZ : 1945 GENDER: FEMALE VISIT DATE: 02/16/2020 DISCHARGE DATE: 02/16/20 1006 VISIT LOCKED DATE TIME: PHYSICIAN: BRAULIO NARAYANAN RESOURCE: BRAULIO NARAYANAN REASON FOR APPOINTMENT 1. POST BILAT DIAG FACET BLK #1 HISTORY OF PRESENT ILLNESS GENERAL: HERE FOR POST PROCEDURE FOLLOW-UP. HAD BILATERAL L4-5, L5-S1 DIAGNOSTIC LUMBAR FACET BLOCK ON 02/02/2020. REPORTING GREATER THAN 80% REDUCTION IN PAIN, SOME OF WHICH CONTINUES TODAY. REVIEWED HOURLY PAIN DIARY. DISCUSSED DIAGNOSTIC LUMBAR FACETS #2. -. FALL RISK SCREENING: SCREENING :ONE FALL WITH INJURY IN THE PAST YEAR PAIN SCREENING: PATIENT HAS A COMPLAINT OF ACUTE OR CHRONIC PAIN :YES 02/16/20 INTENSITY OF PAIN (SCALE OF 1 TO 10):2 WHAT DOES YOUR PAIN FEEL LIKE:ACHING, INTERMITTENT PAIN IS INCREASED BY: SITTING, STANDING, BENDING, GARDENING, ACTIVITY PAIN IS DECREASED BY: SITTING IN NICE CHAIR, REST NURSING NOTE: -. PAIN CENTER INTAKE QUESTIONS: DO YOU HAVE A HISTORY OF MRSA? :YES ON BACK DO YOU TAKE A BLOOD THINNERS? :NO DO YOU HAVE ANY BLEEDING DISORDERS? :NO ANY NEW NUMBNESS OR WEAKNESS IN YOUR LEGS OR ARMS? :NO ANY PACEMAKER,DEFIBRILLATOR, OR DORSAL COLUMN STIMULATOR? :NO DO YOU HAVE ANY RASHES OR OPEN SORES? :NO ARE YOU ALLERGIC TO IV DYE? :NO ARE YOU DIABETIC? :NO ANY NEW PROBLEMS WITH YOUR MEDICATIONS? :NO HAVE YOU RECEIVED A VACCINE IN THE PAST 30 DAYS? :NO DO YOU PLAN TO RECEIVE A VACCINE IN THE NEXT 21 DAYS? :NO DO YOU NEED ANY PRESCRIPTION? :YES TRAMADOL DO YOU TAKE ANY IMMUNOSUPPRESSIVE MEDICATIONS? :NO IS THERE A CHANCE YOU COULD BE ? :NO ARE YOU BREAST FEEDING? :NO CURRENT MEDICATIONS TAKING CLINDAMYCIN HCL 300 MG CAPSULE 1 CAPSULE ORALLY DIRECTED TAKING LIPITOR 20 MG TABLET 1 TABLET ORALLY ONCE A DAY TAKING LOSARTAN POTASSIUM-HCTZ 50-12.5 MG TABLET 1 TABLET ORALLY ONCE A DAY TAKING OMEPRAZOLE 20 MG CAPSULE DELAYED RELEASE 1 TAB ORALLY ONCE DAILY TAKING PRAMIPEXOLE DIHYDROCHLORIDE 0.5 MG TABLET 1 TABLET BEFORE BEDTIME ORALLY BID TAKING SINGULAIR 10 MG TABLET 1 TABLET ORALLY ONCE A DAY TAKING VOLTAREN 1 % GEL TRANSDERMAL DIRECTED TAKING ZYRTEC 10 MG TABLET 1 TABLET ORALLY ONCE A DAY TAKING COLACE 100 MG CAPSULE 3 CAPSULES ORALLY ONCE A DAY TAKING FLUTICASONE PROPIONATE 50 MCG/ACT SUSPENSION 1 SPRAY IN EACH NOSTRIL NASALLY ONCE A DAY NEEDED TAKING VENTOLIN HFA 108 (90 BASE) MCG/ACT AEROSOL SOLUTION 2 PUFFS NEEDED INHALATION EVERY 4 HRS TAKING PROCTOSOL HC 2.5 % CREAM 1 APPLICATION TO AFFECTED AREA RECTAL TWICE A DAY NEEDED TAKING TRIAMCINOLONE ACETONIDE 0.1 % CREAM 1 APPLICATION TO AFFECTED AREA EXTERNALLY TWICE A DAY NEEDED TAKING TYLENOL EXTRA STRENGTH 500 MG TABLET 2 TABLETS NEEDED ORALLY EVERY 6 HRS NEEDED TAKING GLUCOSAMINE CHONDR 500 COMPLEX - CAPSULE 1 TAB ORALLY ONCE DAILY TAKING ONDANSETRON HCL 8 MG TABLET 1/2 TABLET ORALLY TID PRN TAKING PREMARIN 0.625 MG/GM CREAM VAGINAL DAILY TAKING SPIRONOLACTONE 100 MG TABLET 1 TABLET ORALLY DAILY TAKING ALBUTEROL-IPRATROPIUM 2.5-0.5 MG/3ML SOLUTION 3 ML INHALATION FOUR TIMES A DAY TAKING ANUCORT-HC 25 MG SUPPOSITORY 1 SUPPOSITORY RECTAL TWICE A DAY NEEDED TAKING ARNUITY ELLIPTA 100 MCG/ACT AEROSOL POWDER BREATH ACTIVATED 1 PUFF INHALATION ONCE A DAY TAKING BIOTIN 10 MG CAPSULE ORALLY TAKING CATHERINE ALLERGY 180 MG TABLET 1 TAB ORALLY ONCE A DAY TAKING CYCLOBENZAPRINE HCL 5 MG TABLET 1 TABLET ORALLY BEFORE BEDTIME TAKING FLUCONAZOLE 100 MG TABLET 1 TABLET ORALLY TAKING VITAMIN D 50 MCG (1999 UT) TABLET 1 TABLET ORALLY ONCE A DAY TAKING LYRICA 50 MG CAPSULE 1 CAPSULE ORALLY Q8H TID MDD3 TAKING TRAMADOL HCL 50 MG TABLET 1 ORALLY Q8H PRN MDD3 NOT-TAKING RANITIDINE HCL 150 MG CAPSULE 1 CAPSULE AT BEDTIME ORALLY ONCE A DAY NOT-TAKING GAVISCON 80-20 MG TABLET CHEWABLE 2 TABLETS AFTER MEALS AND AT BEDTIME NEEDED ORALLY FOUR TIMES A DAY, NOTES: RARELY NOT-TAKING MELATONIN 5 MG TABLET 1 TABLET AT BEDTIME NEEDED WITH FOOD ORALLY ONCE A DAY NOT-TAKING MUCINEX ALLERGY 180 MG TABLET 1 TABLET NEEDED ORALLY ONCE A DAY, NOTES: NEEDED MEDICATION LIST REVIEWED AND RECONCILED WITH THE PATIENT PAST MEDICAL HISTORY HTN HYPERCHOLESTREMIA FIBROMYALGIA RESTLESS LEG SYNDROME OSTEOARTHRITIS 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 ASTHMA ALLERGIES PENICILLIN (FOR ALLERGIES USE ONLY): HIVES BELLARGAL: RASH BETA JEANNE (FOR ALLERGIES USE ONLY): DYSPNEA ERGOT ALKALOIDS: NAUSEA/VOMITING SURGICAL HISTORY TUBALIGATION 03/17/75 OVARIAN CYST 02/28/81 LAPROSCOPY,LAPAROTOMY ,BILATERAL CYSTECTOMY 07/09/93 EUA,COLPOSCOPY, LASER VAORIZATION OF THE VAGINA 06/22/98 EUA COLPOOSCOPY, REMOVAL OF VAGINAL CUFF &REPAIR 03/22/99 GALL BLADDER REMOVAL 05/21 ARTHROSCOPIC KNEE SURGERY 12/24 TOTAL RIGHT KNEE REPLACEMENT 03/11/13 HYSTERECTOMY 1992 FAMILY HISTORY FATHER: , DIAGNOSED WITH OTHER MALIGNANT NEOPLASM OF UNSPECIFIED SITE MOTHER: , OTHER MALIGNANT NEOPLASM OF UNSPECIFIED SITE 1 SON(S) , 2 DAUGHTER(S) - HEALTHY. DAD-PROSTATE CA, ALCOHOLICMOM-LEUKEMIA,COLON CA. SOCIAL HISTORY GENERAL: TOBACCO USE ARE YOU A:NONSMOKER LATEX QUESTIONNAIRE LATEX ALLERGY : HAVE YOU EVER DEVELOPED ANY TYPE OF REACTION AFTER HANDLING LATEX PRODUCTS SUCH RUBBER GLOVES, CONDOMS, DIAPHRAGMS, BALLOONS, SOCKS, OR UNDERWEAR?NO LATEX ALLERGY : HAVE YOU EVER DEVELOPED ANY TYPE OF REACTION DURING OR AFTER DENTAL APPOINTMENT, VAGINAL/RECTAL EXAMINATION, SURGICAL PROCEDURE, OR ANY OTHER EXPOSURE?NO DATE ASKED : 01/16/2020 LATEX RISK : HAVE YOU EVER HAD ANY DIFFICULTY BREATHING OR HIVES AFTER EATING OR HANDLING ANY FRUITS, OR VEGETABLES; SUCH KIWI, BANANAS, STONE FRUITS, OR CHESTNUTSNO LATEX RISK : DO YOU HAVE A PREVIOUS PERSONAL HISTORY OF MORE THAN NINE SURGERIES, SPINA BIFIDA, OR REPEATED CATHERIZATIONS? YES - PLEASE INDICATE : > 9 SURGERIES LATEX RISK : ARE YOU FREQUENTLY EXPOSED TO LATEX PRODUCTS IN YOUR OCCUPATION?NO ALCOHOL SCREENING DID YOU HAVE A DRINK CONTAINING ALCOHOL IN THE PAST YEAR?NO POINTS0 INTERPRETATIONNEGATIVE RECREATIONAL DRUG USE DRUG USE?NO CAFFEINE CAFFEINE USE?YES HOW OFTEN AND HOW MUCH? 1 CUP COFFEE/DAILY SABIANIST [id number] YARSANISM LANGUAGE LANGUAGES SPOKEN:[place]ANESE LEARNING BARRIERS / SPECIAL NEEDS BARRIERS TO LEARNING?NO HEARING IMPAIRED?NO VISION IMPAIRED?YES COGNITIVELY IMPAIRED?NO :CORRECTIVE LENSES READINESS TO LEARN?YES LEARNING PREFERENCES?NO LEARNING CAPABILITIES PRESENT?YES EMOTIONAL BARRIERS?NO SPECIAL DEVICES?NO YOUTH TEACHER NEEDED?NO DOMESTIC VIOLENCE DO YOU FEEL SAFE IN YOUR ENVIRONMENT?YES EXERCISE: WALKS, [place]. PAIN CLINIC PFS, CLERGY, PUBLIC HEALTH REFERRALS PFS REFERRAL NEEDED?NO CLERGY REFERRAL NEEDED?NO PUBLIC HEALTH REFERRAL NEEDED?NO HAS THE PATIENT BEEN EDUCATED REGARDING HIS/HER PLAN OF CARE?YES HAS THE PATIENT BEEN EDUCATED REGARDING PAIN, THE RISK FOR PAIN, THE IMPORTANCE OF EFFECTIVE PAIN MANAGEMENT, AND THE PAIN ASSESSMENT PROCESS?YES ADVANCE DIRECTIVE ADVANCE DIRECTIVE DISCUSSED WITH PATIENT:YES HEALTH CARE PROXY [facility]ND[facility] [phone] HOSPITALIZATION/MAJOR DIAGNOSTIC PROCEDURE [place], HEART ATTACK CAUSED BY STRESS 2013 HYPERTENSION 10/2015 BRONCHITIS & PNEUMO 10/2016 REVIEW OF SYSTEMS CONSTITUTIONAL: ANY RECENT FEVER NO . CHILLS NO . WEIGHT CHANGE OF UNKNOWN REASONS NO . GASTROENTEROLOGY: NEW UNEXPLAINABLE CHANGES IN BOWEL CONTROL NO . CONSTIPATION NO . GENITOURINARY: ANY NEW CHANGE IN BLADDER CONTROL? NO . NEUROLOGY: NEW ONSET DIZZINESS OR NEUROLOGICAL CHANGES NOT MENTIONED NO . NEW NUMBNESS OR PAIN PATTERNS NOT MENTIONED AND PERTINENT TO TODAY'S VISIT NO . CARDIOLOGY: NEW CHEST PRESSURE NO . NEW CHEST PAIN NO . RESPIRATORY: UNEXPLAINABLE COUGH NO . NEW SHORTNESS OF BREATH NO . VITAL SIGNS WT 132 LBS, HT 62 IN, BMI 24.14 INDEX, BP 145/65 MM HG, HR 63 /MIN, RR 16 /MIN, TEMP 96.7 F, OXYGEN SAT % 97%, SAFE IN ENV? (Y/N) Y, NA INITIALS OH 09:39, REVIEWED BY: EM. EXAMINATION GENERAL EXAMINATION: LUNGS:LUNG SOUNDS ARE CLEAR. HEART:HEART RATE REGULAR. MUSCULOSKELETAL:*, MUSCLE STRENGTH TESTING 5/5 BILATERAL., PALPATION: + FOR PAIN OVER L/S SPINE. SPECIFIC POINT TENDERNESS L4/5-L5/S1 LUMBAR FACETS WITH FACET LOADING.. DIAGNOSTIC:MRI-L/S-2011-DISC DISPLACEMENT L2/3 AND L3/4.L4/5 BULGING DISC W CENTRAL STENOSIS -MILD.. ASSESSMENTS SPONDYLOSIS OF LUMBAR REGION WITHOUT MYELOPATHY OR RADICULOPATHY - M47.816 (PRIMARY) TREATMENT SPONDYLOSIS OF LUMBAR REGION WITHOUT MYELOPATHY OR RADICULOPATHY NOTES: LEFT L4-5, L5-S1 LUMBAR FACET BLOCK DIAGNOSTIC #2. PROCEDURE CODES FA211 ESTABILISHED PATIENT [facility] CHARGE DISPOSITION & COMMUNICATION FOLLOW UP POST PROCEDURE (REASON: LEFT L4-5, L5-S1 LUMBAR FACET BLOCK DIAGNOSTIC #2) ELECTRONICALLY SIGNED BY DARRIUS SNYDER ON 02/29/2020 AT 09:17 AM EDT DISCLAIMER : THIS IS A VISIT SUMMARY EXTRACTED FROM THE [employer] CHART. IT IS NOT A COPY OF THE [employer] PROGRESS NOTE. MTDD
== END ==
LOC: M PAIN 09:30
PROVIDERS: ATTEND Nurse Practitioner Family
DX: M47.816 Spondylosis without myelopathy or radiculopathy, lumbar region (principal)

== ENCOUNTER → 2020-03-20 | Outpatient (POV) | payer MEDICARE, BC ==
[~2020-03-20] MED LIST changes: +AMLO1TAB24 PO; -AMLO5TAB6 PO; +BUPIVACAINE HCL 0.25% 30ML VIAL As Ordered ONE; +BUPIVACAINE HCL 0.25% 30ML VIAL ONE; +ISOVUE-M 300 61% 15ML VIAL As Ordered ONE; +ISOVUE-M 300 61% 15ML VIAL ONE; +LIDOCAINE 1% SDV 30ML VIAL As Ordered ONE; +LIDOCAINE 1% SDV 30ML VIAL ONE; -NABU-119 PO; +NABU-53 PO
--- NOTE | 2020-05-11 13:51 | REP ---
PARTIAL LUMBAR SPINE SERIES: SINGLE VIEW HISTORY: Injection procedure for pain. 15 seconds of fluoroscopy time is reported. FINDINGS: A single last image hold fluoroscopically obtained spot radiograph of the lumbar spine documents needle position and contrast injection associated with injection procedure. MTDD
== END ==
LOC: M PAIN 09:15
PROVIDERS: ATTEND Anesthesiology
DX: M47.816 Spondylosis without myelopathy or radiculopathy, lumbar region (principal); M47.817 Spondylosis without myelopathy or radiculopathy, lumbosacral region
CPT/HCPCS: 64493; 64494; 76000; Q9967

== ENCOUNTER → 2020-05-23 | Outpatient (CLI) | payer MEDICARE, BC ==
[~2020-05-23] MED LIST changes: -BUPIVACAINE HCL 0.25% 30ML VIAL As Ordered ONE; -BUPIVACAINE HCL 0.25% 30ML VIAL ONE; -ISOVUE-M 300 61% 15ML VIAL As Ordered ONE; -ISOVUE-M 300 61% 15ML VIAL ONE; -LIDOCAINE 1% SDV 30ML VIAL As Ordered ONE; -LIDOCAINE 1% SDV 30ML VIAL ONE
--- NOTE | 2020-05-28 16:40 | ECWPNPC ---
PATIENT NAME: ALEJANDRO VELÁSQUEZ : 1945 GENDER: FEMALE VISIT DATE: 05/23/2020 DISCHARGE DATE: 05/23/20 1215 VISIT LOCKED DATE TIME: PHYSICIAN: BRAULIO NARAYANAN RESOURCE: BRAULIO NARAYANAN REASON FOR APPOINTMENT 1. LOW BACK HISTORY OF PRESENT ILLNESS PAIN CENTER INTAKE QUESTIONS: ALEJANDRO IS HERE FOR ROUTINE FOLLOW-UP OF CHRONIC LOW BACK PAIN. CONTINUES TO BENEFIT FROM DIAGNOSTIC BLOCK OF THE LUMBAR SPINE WHICH WAS DONE SEVERAL MONTHS AGO. RATING PAIN LEVEL BETWEEN A 1 AND 5/10 VAS. FINDS CURRENT CHRONIC PAIN MEDICATION EFFECTIVE AT REDUCING PAIN AND KEEPING HER FUNCTIONAL. DESCRIBES PAIN INTERMITTENT ACHING AND SORENESS MAINLY DURING THE DAY. GENERAL: -. FALL RISK SCREENING: SCREENING :ONE FALL WITH INJURY IN THE PAST YEAR LAST SE[place]BER IN [place] WENT TO URGENT CARE "ALL HEALED UP NOW" PAIN SCREENING: PATIENT HAS A COMPLAINT OF ACUTE OR CHRONIC PAIN :YES LOCATION OF PAIN:LOW BACK INTENSITY OF PAIN (SCALE OF 1 TO 10):2 WHAT DOES YOUR PAIN FEEL LIKE:ACHING, SORE DURATION:INTERMITTENT NURSING NOTE: -. CURRENT MEDICATIONS TAKING CLINDAMYCIN HCL 300 MG CAPSULE 1 CAPSULE ORALLY DIRECTED, NOTES: ONLY PRIOR TO DENTAL PROCEDURE TAKING LIPITOR 20 MG TABLET 1 TABLET ORALLY ONCE A DAY TAKING LOSARTAN POTASSIUM-HCTZ 50-12.5 MG TABLET 1 TABLET ORALLY ONCE A DAY TAKING OMEPRAZOLE 20 MG CAPSULE DELAYED RELEASE 1 TAB ORALLY ONCE DAILY TAKING PRAMIPEXOLE DIHYDROCHLORIDE 0.5 MG TABLET 1 TABLET BEFORE BEDTIME ORALLY BID TAKING SINGULAIR 10 MG TABLET 1 TABLET ORALLY ONCE A DAY TAKING VOLTAREN 1 % GEL TRANSDERMAL DIRECTED, NOTES: DICOLFENAC GEL TAKING ZYRTEC 10 MG TABLET 1 TABLET ORALLY ONCE A DAY TAKING COLACE 100 MG CAPSULE 3 CAPSULES ORALLY ONCE A DAY TAKING FLUTICASONE PROPIONATE 50 MCG/ACT SUSPENSION 1 SPRAY IN EACH NOSTRIL NASALLY ONCE A DAY NEEDED TAKING VENTOLIN HFA 108 (90 BASE) MCG/ACT AEROSOL SOLUTION 2 PUFFS NEEDED INHALATION EVERY 4 HRS TAKING PROCTOSOL HC 2.5 % CREAM 1 APPLICATION TO AFFECTED AREA RECTAL TWICE A DAY NEEDED TAKING TRIAMCINOLONE ACETONIDE 0.1 % CREAM 1 APPLICATION TO AFFECTED AREA EXTERNALLY TWICE A DAY NEEDED TAKING TYLENOL EXTRA STRENGTH 500 MG TABLET 2 TABLETS NEEDED ORALLY EVERY 6 HRS NEEDED TAKING GLUCOSAMINE CHONDR 500 COMPLEX - CAPSULE 1 TAB ORALLY ONCE DAILY TAKING ONDANSETRON HCL 8 MG TABLET 1/2 TABLET ORALLY TID PRN TAKING PREMARIN 0.625 MG/GM CREAM VAGINAL DAILY TAKING SPIRONOLACTONE 100 MG TABLET 1 TABLET ORALLY DAILY TAKING ALBUTEROL-IPRATROPIUM 2.5-0.5 MG/3ML SOLUTION 3 ML INHALATION FOUR TIMES A DAY TAKING ANUCORT-HC 25 MG SUPPOSITORY 1 SUPPOSITORY RECTAL TWICE A DAY NEEDED TAKING ARNUITY ELLIPTA 100 MCG/ACT AEROSOL POWDER BREATH ACTIVATED 1 PUFF INHALATION ONCE A DAY TAKING BIOTIN 10 MG CAPSULE ORALLY TAKING CATHERINE ALLERGY 180 MG TABLET 1 TAB ORALLY ONCE A DAY TAKING CYCLOBENZAPRINE HCL 5 MG TABLET 1 TABLET ORALLY BEFORE BEDTIME TAKING FLUCONAZOLE 100 MG TABLET 1 TABLET ORALLY TAKING VITAMIN D 50 MCG (1999) TABLET 1 TABLET ORALLY ONCE A DAY TAKING LYRICA 50 MG CAPSULE 1 CAPSULE ORALLY Q8H TID MDD3 TAKING TRAMADOL HCL 50 MG TABLET 1 ORALLY Q8H PRN MDD3 TAKING BENADRYL ALLERGY 25 MG TABLET 1 TABLET AT BEDTIME NEEDED ORALLY ONCE A DAY, NOTES: 30 MINUTES PRIOR TO INFUSION TAKING EPINEPHRINE 0.3 MG/0.3ML SOLUTION AUTO-INJECTOR DIRECTED INJECTION , NOTES: FOR ADVERSE REACTIO TAKING GAMUNEX-C 10 GM/100ML SOLUTION DIRECTED INJECTION , NOTES: 9 GMQ WEEK INFUSION NOT-TAKING RANITIDINE HCL 150 MG CAPSULE 1 CAPSULE AT BEDTIME ORALLY ONCE A DAY NOT-TAKING GAVISCON 80-20 MG TABLET CHEWABLE 2 TABLETS AFTER MEALS AND AT BEDTIME NEEDED ORALLY FOUR TIMES A DAY, NOTES: RARELY NOT-TAKING MELATONIN 5 MG TABLET 1 TABLET AT BEDTIME NEEDED WITH FOOD ORALLY ONCE A DAY NOT-TAKING MUCINEX ALLERGY 180 MG TABLET 1 TABLET NEEDED ORALLY ONCE A DAY, NOTES: NEEDED MEDICATION LIST REVIEWED AND RECONCILED WITH THE PATIENT PAST MEDICAL HISTORY HTN HYPERCHOLESTREMIA FIBROMYALGIA RESTLESS LEG SYNDROME OSTEOARTHRITIS 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 ASTHMA COMMON VARIABLE IMMUNODEFICIENCY ALLERGIES PENICILLIN (FOR ALLERGIES USE ONLY): HIVES BELLARGAL: RASH BETA JEANNE (FOR ALLERGIES USE ONLY): DYSPNEA ERGOT ALKALOIDS: NAUSEA/VOMITING SURGICAL HISTORY TUBALIGATION 03/17/75 OVARIAN CYST 02/28/81 LAPROSCOPY,LAPAROTOMY ,BILATERAL CYSTECTOMY 07/09/93 EUA,COLPOSCOPY, LASER VAORIZATION OF THE VAGINA 06/22/98 EUA COLPOOSCOPY, REMOVAL OF VAGINAL CUFF &REPAIR 03/22/99 GALL BLADDER REMOVAL 05/21 ARTHROSCOPIC KNEE SURGERY 12/24 TOTAL RIGHT KNEE REPLACEMENT 03/11/13 HYSTERECTOMY 1992 FAMILY HISTORY FATHER: , DIAGNOSED WITH OTHER MALIGNANT NEOPLASM OF UNSPECIFIED SITE MOTHER: , OTHER MALIGNANT NEOPLASM OF UNSPECIFIED SITE 1 SON(S) , 2 DAUGHTER(S) - HEALTHY. DAD-PROSTATE CA, ALCOHOLICMOM-LEUKEMIA,COLON CA. SOCIAL HISTORY GENERAL: TOBACCO USE ARE YOU A:NONSMOKER LATEX QUESTIONNAIRE LATEX ALLERGY : HAVE YOU EVER DEVELOPED ANY TYPE OF REACTION AFTER HANDLING LATEX PRODUCTS SUCH RUBBER GLOVES, CONDOMS, DIAPHRAGMS, BALLOONS, SOCKS, OR UNDERWEAR?NO LATEX ALLERGY : HAVE YOU EVER DEVELOPED ANY TYPE OF REACTION DURING OR AFTER DENTAL APPOINTMENT, VAGINAL/RECTAL EXAMINATION, SURGICAL PROCEDURE, OR ANY OTHER EXPOSURE?NO DATE ASKED : 01/16/2020 LATEX RISK : HAVE YOU EVER HAD ANY DIFFICULTY BREATHING OR HIVES AFTER EATING OR HANDLING ANY FRUITS, OR VEGETABLES; SUCH KIWI, BANANAS, STONE FRUITS, OR CHESTNUTSNO LATEX RISK : DO YOU HAVE A PREVIOUS PERSONAL HISTORY OF MORE THAN NINE SURGERIES, SPINA BIFIDA, OR REPEATED CATHERIZATIONS? YES - PLEASE INDICATE : > 9 SURGERIES LATEX RISK : ARE YOU FREQUENTLY EXPOSED TO LATEX PRODUCTS IN YOUR OCCUPATION?NO ALCOHOL SCREENING DID YOU HAVE A DRINK CONTAINING ALCOHOL IN THE PAST YEAR?NO POINTS0 INTERPRETATIONNEGATIVE RECREATIONAL DRUG USE DRUG USE?NO CAFFEINE CAFFEINE USE?YES HOW OFTEN AND HOW MUCH? 1 CUP COFFEE/DAILY LATTER DAY [id number] YARSANI LANGUAGE LANGUAGES SPOKEN:TURKISH LEARNING BARRIERS / SPECIAL NEEDS BARRIERS TO LEARNING?NO HEARING IMPAIRED?NO VISION IMPAIRED?YES COGNITIVELY IMPAIRED?NO :CORRECTIVE LENSES READINESS TO LEARN?YES LEARNING PREFERENCES?NO LEARNING CAPABILITIES PRESENT?YES EMOTIONAL BARRIERS?NO SPECIAL DEVICES?NO SPRAYING MACHINE OPERATOR NEEDED?NO DOMESTIC VIOLENCE DO YOU FEEL SAFE IN YOUR ENVIRONMENT?YES EXERCISE: WALKS, [place]. PAIN CLINIC PFS, CLERGY, PUBLIC HEALTH REFERRALS PFS REFERRAL NEEDED?NO CLERGY REFERRAL NEEDED?NO PUBLIC HEALTH REFERRAL NEEDED?NO HAS THE PATIENT BEEN EDUCATED REGARDING HIS/HER PLAN OF CARE?YES HAS THE PATIENT BEEN EDUCATED REGARDING PAIN, THE RISK FOR PAIN, THE IMPORTANCE OF EFFECTIVE PAIN MANAGEMENT, AND THE PAIN ASSESSMENT PROCESS?YES ADVANCE DIRECTIVE ADVANCE DIRECTIVE DISCUSSED WITH PATIENT:YES HEALTH CARE PROXY LYNDSEY [phone] HOSPITALIZATION/MAJOR DIAGNOSTIC PROCEDURE [place], HEART ATTACK CAUSED BY STRESS 2013 HYPERTENSION 10/2015 BRONCHITIS & PNEUMO 10/2016 REVIEW OF SYSTEMS CONSTITUTIONAL: ANY RECENT FEVER NO . CHILLS NO . WEIGHT CHANGE OF UNKNOWN REASONS NO . GASTROENTEROLOGY: NEW UNEXPLAINABLE CHANGES IN BOWEL CONTROL NO . CONSTIPATION NO . GENITOURINARY: ANY NEW CHANGE IN BLADDER CONTROL? NO . NEUROLOGY: NEW ONSET DIZZINESS OR NEUROLOGICAL CHANGES NOT MENTIONED NO . NEW NUMBNESS OR PAIN PATTERNS NOT MENTIONED AND PERTINENT TO TODAY'S VISIT NO . CARDIOLOGY: NEW CHEST PRESSURE NO . NEW CHEST PAIN NO . RESPIRATORY: UNEXPLAINABLE COUGH NO . NEW SHORTNESS OF BREATH NO . VITAL SIGNS WT 131.4 LBS, HT 62 IN, BMI 24.03 INDEX, BP 120/60 MM HG, HR 81 /MIN, RR 18 /MIN, TEMP 96.3 F, OXYGEN SAT % 96%, NA INITIALS AW 1146. EXAMINATION GENERAL EXAMINATION: GENERALAWAKE,ALERT ,PLEASANT . PSYCHAFFECT NORMAL . LUNGS:LUNG PEREZ ARE CLEAR TO AUSCULTATION BILATERALLY. GOOD MOVEMENT OF AIR . HEART:S1, S2 IN A REGULAR RATE AND RHYTHM. NO SIGNIFICANT MURMURS, RUBS OR GALLOPS NOTED . ASSESSMENTS SPONDYLOSIS OF LUMBAR REGION WITHOUT MYELOPATHY OR RADICULOPATHY - M47.816 (PRIMARY) TREATMENT SPONDYLOSIS OF LUMBAR REGION WITHOUT MYELOPATHY OR RADICULOPATHY NOTES: CONTINUE HOME EXERCISE AND STRETCHING. PATIENT WILL FOLLOW-UP WHEN SHE RETURNS FROM [place] IN DECEMBER. PROCEDURE CODES FA211 ESTABILISHED PATIENT [facility] CHARGE DISPOSITION & COMMUNICATION FOLLOW UP FOLLOW-UP WHEN SHE RETURNS FROM [place] IN DECEMBER (REASON: LOW BACK PAIN) ELECTRONICALLY SIGNED BY DARRIUS SNYDER ON 05/28/2020 AT 03:50 PM EDT DISCLAIMER : THIS IS A VISIT SUMMARY EXTRACTED FROM THE [employer] CHART. IT IS NOT A COPY OF THE [employer] PROGRESS NOTE. MERRILL
== END ==
LOC: M PAIN 11:15
PROVIDERS: ATTEND Nurse Practitioner Family
DX: M47.816 Spondylosis without myelopathy or radiculopathy, lumbar region (principal); I10 Essential (primary) hypertension; E78.00 Pure hypercholesterolemia, unspecified; M79.7 Fibromyalgia; G25.81 Restless legs syndrome; D83.9 Common variable immunodeficiency, unspecified; J45.909 Unspecified asthma, uncomplicated; Z85.828 Personal history of other malignant neoplasm of skin; Z79.891 Long term (current) use of opiate analgesic; Z79.899 Other long term (current) drug therapy; Z88.0 Allergy status to penicillin; Z88.8 Allergy status to other drugs, medicaments and biological substances

== ENCOUNTER → 2021-01-04 | Outpatient (CLI) | payer MEDICARE, BC ==
[~2021-01-04] MED LIST changes: -NABU-53 PO; +NABU-73 PO
--- NOTE | 2021-01-08 00:03 | ECWPNPC ---
PATIENT NAME: ALEJANDRO VELÁSQUEZ : 1945 GENDER: FEMALE VISIT DATE: 01/04/2021 DISCHARGE DATE: 01/04/21 1211 VISIT LOCKED DATE TIME: PHYSICIAN: BRAULIO NARAYANAN RESOURCE: BRAULIO NARAYANAN REASON FOR APPOINTMENT 1. LOW BACK HISTORY OF PRESENT ILLNESS DEPRESSION SCREENING: PHQ-2 (2015 EDITION) LITTLE INTEREST OR PLEASURE IN DOING THINGS?NOT AT ALL FEELING DOWN, DEPRESSED, OR HOPELESS?NOT AT ALL TOTAL SCORE0 GENERAL: HERE FOR FOLLOW-UP OF CHRONIC LOW BACK PAIN. CONTINUES TO DO WELL WITH EPISODES OF INTERMITTENT LOW BACK PAIN THAT SHE USES TRAMADOL WITH RELIEF. HAD DIAGNOSTIC LUMBAR FACET BLOCK DONE SEVERAL MONTHS AGO AND CONTINUES TO BENEFIT FROM THE DIAGNOSTIC BLOCK. WE WILL HAVE TO DO ANOTHER TEST SHOULD PAIN RETURN TO CONSIDER RADIOFREQUENCY. -. FALL RISK SCREENING: SCREENING : NO FALLS REPORTED IN THE LAST YEAR. PAIN SCREENING: PATIENT HAS A COMPLAINT OF ACUTE OR CHRONIC PAIN :YES LOCATION OF PAIN:LOW BACK, LEFT HIP INTENSITY OF PAIN (SCALE OF 1 TO 10):2 WHAT DOES YOUR PAIN FEEL LIKE:ACHING, INTERMITTENT DURATION:INTERMITTENT, AWAKENS FROM SLEEP PAIN IS INCREASED BY:ACTIVITIES, PROLONGED STANDING PAIN IS DECREASED BY:USE OF PAIN MEDICATIONS, SITTING CBD LOTION HELPS WITH PAIN NURSING NOTE: -. PAIN CENTER INTAKE QUESTIONS: DO YOU HAVE A HISTORY OF MRSA? :YES ON BACK DO YOU TAKE A BLOOD THINNERS? :NO DO YOU HAVE ANY BLEEDING DISORDERS? :NO ANY NEW NUMBNESS OR WEAKNESS IN YOUR LEGS OR ARMS? :NO ANY PACEMAKER,DEFIBRILLATOR, OR DORSAL COLUMN STIMULATOR? :NO DO YOU HAVE ANY RASHES OR OPEN SORES? :NO ARE YOU ALLERGIC TO IV DYE? :NO ARE YOU DIABETIC? :NO ANY NEW PROBLEMS WITH YOUR MEDICATIONS? :NO HAVE YOU RECEIVED A VACCINE IN THE PAST 30 DAYS? :NO DO YOU PLAN TO RECEIVE A VACCINE IN THE NEXT 21 DAYS? :NO DO YOU NEED ANY PRESCRIPTION? :YES TRAMADOL- [place] IN [place] DO YOU TAKE ANY IMMUNOSUPPRESSIVE MEDICATIONS? :NO IS THERE A CHANCE YOU COULD BE ? :NO ARE YOU BREAST FEEDING? :NO CURRENT MEDICATIONS TAKING CLINDAMYCIN HCL 300 MG CAPSULE 1 CAPSULE ORALLY DIRECTED, NOTES: ONLY PRIOR TO DENTAL PROCEDURE TAKING LIPITOR 20 MG TABLET 1 TABLET ORALLY ONCE A DAY TAKING LOSARTAN POTASSIUM-HCTZ 50-12.5 MG TABLET 1 TABLET ORALLY ONCE A DAY TAKING OMEPRAZOLE 20 MG CAPSULE DELAYED RELEASE 1 TAB ORALLY ONCE DAILY TAKING PRAMIPEXOLE DIHYDROCHLORIDE 0.5 MG TABLET 1 TABLET BEFORE BEDTIME ORALLY BID TAKING SINGULAIR 10 MG TABLET 1 TABLET ORALLY ONCE A DAY TAKING VOLTAREN 1 % GEL TRANSDERMAL DIRECTED, NOTES: DICOLFENAC GEL TAKING ZYRTEC 10 MG TABLET 1 TABLET ORALLY ONCE A DAY TAKING COLACE 100 MG CAPSULE 3 CAPSULES ORALLY ONCE A DAY TAKING FLUTICASONE PROPIONATE 50 MCG/ACT SUSPENSION 1 SPRAY IN EACH NOSTRIL NASALLY ONCE A DAY NEEDED TAKING VENTOLIN HFA 108 (90 BASE) MCG/ACT AEROSOL SOLUTION 2 PUFFS NEEDED INHALATION EVERY 4 HRS TAKING PROCTOSOL HC 2.5 % CREAM 1 APPLICATION TO AFFECTED AREA RECTAL TWICE A DAY NEEDED TAKING TRIAMCINOLONE ACETONIDE 0.1 % CREAM 1 APPLICATION TO AFFECTED AREA EXTERNALLY TWICE A DAY NEEDED TAKING TYLENOL EXTRA STRENGTH 500 MG TABLET 2 TABLETS NEEDED ORALLY EVERY 6 HRS NEEDED TAKING GLUCOSAMINE CHONDR 500 COMPLEX - CAPSULE 1 TAB ORALLY ONCE DAILY TAKING ONDANSETRON HCL 8 MG TABLET 1/2 TABLET ORALLY TID PRN TAKING PREMARIN 0.625 MG/GM CREAM VAGINAL DAILY TAKING SPIRONOLACTONE 100 MG TABLET 1 TABLET ORALLY DAILY TAKING ALBUTEROL-IPRATROPIUM 2.5-0.5 MG/3ML SOLUTION 3 ML INHALATION FOUR TIMES A DAY TAKING ANUCORT-HC 25 MG SUPPOSITORY 1 SUPPOSITORY RECTAL TWICE A DAY NEEDED TAKING ARNUITY ELLIPTA 100 MCG/ACT AEROSOL POWDER BREATH ACTIVATED 1 PUFF INHALATION ONCE A DAY TAKING BIOTIN 10 MG CAPSULE ORALLY TAKING CATHERINE ALLERGY 180 MG TABLET 1 TAB ORALLY ONCE A DAY TAKING CYCLOBENZAPRINE HCL 5 MG TABLET 1 TABLET ORALLY BEFORE BEDTIME TAKING FLUCONAZOLE 100 MG TABLET 1 TABLET ORALLY TAKING VITAMIN D 50 MCG (1999 UT) TABLET 1 TABLET ORALLY ONCE A DAY TAKING LYRICA 50 MG CAPSULE 1 CAPSULE ORALLY BID TAKING BENADRYL ALLERGY 25 MG TABLET 1 TABLET AT BEDTIME NEEDED ORALLY ONCE A DAY, NOTES: 30 MINUTES PRIOR TO INFUSION TAKING EPINEPHRINE 0.3 MG/0.3ML SOLUTION AUTO-INJECTOR DIRECTED INJECTION , NOTES: FOR ADVERSE REACTIO TAKING GAMUNEX-C 10 GM/100ML SOLUTION DIRECTED INJECTION , NOTES: 9 GMQ WEEK INFUSION TAKING TRAMADOL HCL 50 MG TABLET 1 ORALLY Q8H PRN MDD3 TAKING HYDROCHLOROTHIAZIDE 12.5 MG CAPSULE 1 CAPSULE IN THE MORNING ORALLY ONCE A DAY TAKING FAMOTIDINE 20 MG TABLET 1 TABLET AT BEDTIME NEEDED ORALLY ONCE A DAY TAKING MAY USE CBD CREAM TOPICALLY DIRECTED NOT-TAKING RANITIDINE HCL 150 MG CAPSULE 1 CAPSULE AT BEDTIME ORALLY ONCE A DAY NOT-TAKING GAVISCON 80-20 MG TABLET CHEWABLE 2 TABLETS AFTER MEALS AND AT BEDTIME NEEDED ORALLY FOUR TIMES A DAY, NOTES: RARELY NOT-TAKING MELATONIN 5 MG TABLET 1 TABLET AT BEDTIME NEEDED WITH FOOD ORALLY ONCE A DAY NOT-TAKING MUCINEX ALLERGY 180 MG TABLET 1 TABLET NEEDED ORALLY ONCE A DAY, NOTES: NEEDED MEDICATION LIST REVIEWED AND RECONCILED WITH THE PATIENT PAST MEDICAL HISTORY HTN HYPERCHOLESTREMIA FIBROMYALGIA RESTLESS LEG SYNDROME OSTEOARTHRITIS 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 ASTHMA COMMON VARIABLE IMMUNODEFICIENCY ALLERGIES PENICILLIN (FOR ALLERGIES USE ONLY): HIVES BELLARGAL: RASH BETA JEANNE (FOR ALLERGIES USE ONLY): DYSPNEA ERGOT ALKALOIDS: NAUSEA/VOMITING SOCIAL HISTORY GENERAL: TOBACCO USE ARE YOU A:NONSMOKER LATEX QUESTIONNAIRE LATEX ALLERGY : HAVE YOU EVER DEVELOPED ANY TYPE OF REACTION AFTER HANDLING LATEX PRODUCTS SUCH RUBBER GLOVES, CONDOMS, DIAPHRAGMS, BALLOONS, SOCKS, OR UNDERWEAR?NO LATEX ALLERGY : HAVE YOU EVER DEVELOPED ANY TYPE OF REACTION DURING OR AFTER DENTAL APPOINTMENT, VAGINAL/RECTAL EXAMINATION, SURGICAL PROCEDURE, OR ANY OTHER EXPOSURE?NO LATEX RISK : HAVE YOU EVER HAD ANY DIFFICULTY BREATHING OR HIVES AFTER EATING OR HANDLING ANY FRUITS, OR VEGETABLES; SUCH KIWI, BANANAS, STONE FRUITS, OR CHESTNUTSNO LATEX RISK : DO YOU HAVE A PREVIOUS PERSONAL HISTORY OF MORE THAN NINE SURGERIES, SPINA BIFIDA, OR REPEATED CATHERIZATIONS? YES - PLEASE INDICATE : > 9 SURGERIES LATEX RISK : ARE YOU FREQUENTLY EXPOSED TO LATEX PRODUCTS IN YOUR OCCUPATION?NO DATE ASKED : 01/04/2021 ALCOHOL USE: OCCASIONAL. ALCOHOL SCREENING DID YOU HAVE A DRINK CONTAINING ALCOHOL IN THE PAST YEAR?NO POINTS0 INTERPRETATIONNEGATIVE RECREATIONAL DRUG USE DRUG USE?NO CAFFEINE CAFFEINE USE?YES HOW OFTEN AND HOW MUCH? 1 CUP COFFEE/DAILY ANGLICAN [id number] SIKHISM LANGUAGE LANGUAGES SPOKEN:DANISH EDUCATION LEVEL OF EDUCATION:PROFESSIONAL SCHOOLS/MASTERS/PHD LEARNING BARRIERS / SPECIAL NEEDS CHANGE FROM LAST VISIT?NO BARRIERS TO LEARNING?NO HEARING IMPAIRED?NO VISION IMPAIRED?YES :CORRECTIVE LENSES COGNITIVELY IMPAIRED?NO READINESS TO LEARN?YES LEARNING PREFERENCES?NO LEARNING CAPABILITIES PRESENT?YES EMOTIONAL BARRIERS?NO SPECIAL DEVICES?NO DIRECTOR OF MANUFACTURING NEEDED?NO DOMESTIC VIOLENCE DO YOU FEEL SAFE IN YOUR ENVIRONMENT?YES EXERCISE: WALKS, [place]. - PFS REFERRAL NEEDED?NO CLERGY REFERRAL NEEDED?NO PUBLIC HEALTH REFERRAL NEEDED?NO HAS THE PATIENT BEEN EDUCATED REGARDING HIS/HER PLAN OF CARE?YES HAS THE PATIENT BEEN EDUCATED REGARDING PAIN, THE RISK FOR PAIN, THE IMPORTANCE OF EFFECTIVE PAIN MANAGEMENT, AND THE PAIN ASSESSMENT PROCESS?YES ADVANCE DIRECTIVE ADVANCE DIRECTIVE DISCUSSED WITH PATIENT:YES HEALTH CARE PROXY LYNDSEY [phone] REVIEW OF SYSTEMS CONSTITUTIONAL: ANY RECENT FEVER NO . CHILLS NO . WEIGHT CHANGE OF UNKNOWN REASONS NO . GASTROENTEROLOGY: NEW UNEXPLAINABLE CHANGES IN BOWEL CONTROL NO . CONSTIPATION NO . GENITOURINARY: ANY NEW CHANGE IN BLADDER CONTROL? NO . NEUROLOGY: NEW ONSET DIZZINESS OR NEUROLOGICAL CHANGES NOT MENTIONED NO . NEW NUMBNESS OR PAIN PATTERNS NOT MENTIONED AND PERTINENT TO TODAY'S VISIT NO . CARDIOLOGY: NEW CHEST PRESSURE NO . PATIENT DENIES NO . RESPIRATORY: UNEXPLAINABLE COUGH NO . NEW SHORTNESS OF BREATH NO . VITAL SIGNS WT 130.2 LBS, HT 62 IN, BMI 23.81 INDEX, BP 139/67 MM HG, HR 78 /MIN, RR 16 /MIN, TEMP 96.7 F, OXYGEN SAT % 100%, SAFE IN ENV? (Y/N) YES, NA INITIALS SC 11:28, REVIEWED BY: MONTSE RENEE MA. EXAMINATION GENERAL EXAMINATION: GENERALAWAKE,ALERT ,PLEASANT . PSYCHAFFECT NORMAL . LUNGS:LUNG PEREZ ARE CLEAR TO AUSCULTATION BILATERALLY. GOOD MOVEMENT OF AIR . HEART:S1, S2 IN A REGULAR RATE AND RHYTHM. NO SIGNIFICANT MURMURS, RUBS OR GALLOPS NOTED . ASSESSMENTS CHRONIC PRESCRIPTION OPIATE USE - Z79.891 (PRIMARY) SPONDYLOSIS OF LUMBAR REGION WITHOUT MYELOPATHY OR RADICULOPATHY - M47.816 TREATMENT CHRONIC PRESCRIPTION OPIATE USE REFILL TRAMADOL HCL TABLET, 50 MG, 1, ORALLY, Q8H PRN MDD3, 30 DAYS, 90, REFILLS 5 LAB: URINE TEST GROUP BEBETO RENEE 01/04/2021 12:05:51 PM > LAST DOSE: TRAMADOL 01/04/2021 AT 0600; LYRICA 01/03/2021 AT 2200; CBD CREAM 01/01/2021 NOTES: ISTOP REGISTRY REVIEWED AND DEMONSTRATES COMPLLIANCE. PROCEDURE CODES FA211 ESTABILISHED PATIENT [facility] CHARGE DISPOSITION & COMMUNICATION FOLLOW UP 2 MONTHS (REASON: MED MGMNT/CONSIDER LFBDX #2/REVIEW UTOX) ELECTRONICALLY SIGNED BY DARRIUS SNYDER ON 01/07/2021 AT 02:56 PM EDT DISCLAIMER : THIS IS A VISIT SUMMARY EXTRACTED FROM THE [employer] CHART. IT IS NOT A COPY OF THE [employer] PROGRESS NOTE. MERRILL
== END ==
LOC: M PAIN 11:30
PROVIDERS: ATTEND Nurse Practitioner Family
DX: M47.816 Spondylosis without myelopathy or radiculopathy, lumbar region (principal); G89.29 Other chronic pain; M79.7 Fibromyalgia; G25.81 Restless legs syndrome; J45.909 Unspecified asthma, uncomplicated; Z86.14 Personal history of Methicillin resistant Staphylococcus aureus infection; Z88.0 Allergy status to penicillin; Z88.8 Allergy status to other drugs, medicaments and biological substances; Z79.51 Long term (current) use of inhaled steroids; Z79.891 Long term (current) use of opiate analgesic; Z79.899 Other long term (current) drug therapy

== ENCOUNTER → 2021-03-06 | Outpatient (CLI) | payer MEDICARE, BC ==
--- NOTE | 2021-03-08 03:44 | ECWPNPC ---
PATIENT NAME: ALEJANDRO VELÁSQUEZ : 1945 GENDER: FEMALE VISIT DATE: 03/06/2021 DISCHARGE DATE: 03/06/21 1230 VISIT LOCKED DATE TIME: PHYSICIAN: BRAULIO NARAYANAN RESOURCE: BRAULIO NARAYANAN REASON FOR APPOINTMENT 1. MED MGMNT/CONSIDER LFBDX #2/REVIEW UTOX HISTORY OF PRESENT ILLNESS GENERAL: HERE FOR FOLLOW-UP OF CHRONIC LOW BACK PAIN. CONTINUES TO BENEFIT FROM LUMBAR FACET BLOCK DIAGNOSTIC INJECTIONS THAT WERE DONE SEVERAL MONTHS AGO. CURRENTLY USING TRAMADOL 2-3 TIMES A DAY NEEDED FOR SEVERE PAIN EPISODES. OVERALL DOING WELL. REPORTING THAT SHE IS ON IGG IMMUNOGLOBULIN FOR IMMUNOSUPPRESSION OVER THE PAST YEAR. STATES THEY STARTED THIS DUE TO FREQUENT EPISODES OF BRONCHITIS OVER THE YEARS. SINCE STARTING IGG SHE HAS BEEN WITHOUT EPISODES OF BRONCHITIS. -. FALL RISK SCREENING: SCREENING ONE FALLS THIS YEAR, NO MAJOR INJURIES. PAIN SCREENING: PATIENT HAS A COMPLAINT OF ACUTE OR CHRONIC PAIN :YES LOCATION OF PAIN:LOW BACK INTENSITY OF PAIN (SCALE OF 1 TO 10):0 WHAT DOES YOUR PAIN FEEL LIKE:INTERMITTENT DURATION:ONLY WITH SPECIFIC ACTIVITIES, INTERMITTENT PAIN IS INCREASED BY:ACTIVITIES PAIN IS DECREASED BY:USE OF PAIN MEDICATIONS NURSING NOTE: -. PAIN CENTER INTAKE QUESTIONS: DO YOU HAVE A HISTORY OF MRSA? :YES ON BACK DO YOU TAKE A BLOOD THINNERS? :NO DO YOU HAVE ANY BLEEDING DISORDERS? :NO ANY NEW NUMBNESS OR WEAKNESS IN YOUR LEGS OR ARMS? :NO ANY PACEMAKER,DEFIBRILLATOR, OR DORSAL COLUMN STIMULATOR? :NO DO YOU HAVE ANY RASHES OR OPEN SORES? :NO ARE YOU ALLERGIC TO IV DYE? :NO ARE YOU DIABETIC? :NO ANY NEW PROBLEMS WITH YOUR MEDICATIONS? :NO HAVE YOU RECEIVED A VACCINE IN THE PAST 30 DAYS? :NO DO YOU PLAN TO RECEIVE A VACCINE IN THE NEXT 21 DAYS? :NO DO YOU NEED ANY PRESCRIPTION? :YES TRAMADOL- KINNEYS IN [place] HAT DO YOU TAKE ANY IMMUNOSUPPRESSIVE MEDICATIONS? :NO IS THERE A CHANCE YOU COULD BE ? :NO ARE YOU BREAST FEEDING? :NO CURRENT MEDICATIONS TAKING CLINDAMYCIN HCL 300 MG CAPSULE 1 CAPSULE ORALLY DIRECTED, NOTES: ONLY PRIOR TO DENTAL PROCEDURE TAKING LIPITOR 40 MG TABLET 1 TABLET ORALLY ONCE A DAY TAKING LOSARTAN POTASSIUM-HCTZ 50-12.5 MG TABLET 1 TABLET ORALLY ONCE A DAY TAKING OMEPRAZOLE 20 MG CAPSULE DELAYED RELEASE 1 TAB ORALLY ONCE DAILY TAKING PRAMIPEXOLE DIHYDROCHLORIDE 0.5 MG TABLET 1 TABLET BEFORE BEDTIME ORALLY BID TAKING SINGULAIR 10 MG TABLET 1 TABLET ORALLY ONCE A DAY TAKING VOLTAREN 1 % GEL TRANSDERMAL DIRECTED, NOTES: DICOLFENAC GEL TAKING ZYRTEC 10 MG TABLET 1 TABLET ORALLY ONCE A DAY TAKING COLACE 100 MG CAPSULE 3 CAPSULES ORALLY ONCE A DAY TAKING FLUTICASONE PROPIONATE 50 MCG/ACT SUSPENSION 1 SPRAY IN EACH NOSTRIL NASALLY ONCE A DAY NEEDED TAKING VENTOLIN HFA 108 (90 BASE) MCG/ACT AEROSOL SOLUTION 2 PUFFS NEEDED INHALATION EVERY 4 HRS TAKING PROCTOSOL HC 2.5 % CREAM 1 APPLICATION TO AFFECTED AREA RECTAL TWICE A DAY NEEDED TAKING TRIAMCINOLONE ACETONIDE 0.1 % CREAM 1 APPLICATION TO AFFECTED AREA EXTERNALLY TWICE A DAY NEEDED TAKING TYLENOL EXTRA STRENGTH 500 MG TABLET 2 TABLETS NEEDED ORALLY EVERY 6 HRS NEEDED TAKING GLUCOSAMINE CHONDR 500 COMPLEX - CAPSULE 1 TAB ORALLY ONCE DAILY TAKING ONDANSETRON HCL 8 MG TABLET 1/2 TABLET ORALLY TID PRN TAKING PREMARIN 0.625 MG/GM CREAM VAGINAL DAILY TAKING SPIRONOLACTONE 100 MG TABLET 1 TABLET ORALLY DAILY TAKING ALBUTEROL-IPRATROPIUM 2.5-0.5 MG/3ML SOLUTION 3 ML INHALATION FOUR TIMES A DAY TAKING ANUCORT-HC 25 MG SUPPOSITORY 1 SUPPOSITORY RECTAL TWICE A DAY NEEDED TAKING ARNUITY ELLIPTA 100 MCG/ACT AEROSOL POWDER BREATH ACTIVATED 1 PUFF INHALATION ONCE A DAY TAKING BIOTIN 10 MG CAPSULE ORALLY TAKING CATHERINE ALLERGY 180 MG TABLET 1 TAB ORALLY ONCE A DAY TAKING CYCLOBENZAPRINE HCL 5 MG TABLET 1 TABLET ORALLY BEFORE BEDTIME TAKING FLUCONAZOLE 100 MG TABLET 1 TABLET ORALLY TAKING VITAMIN D 50 MCG (2000 UT) TABLET 1 TABLET ORALLY ONCE A DAY TAKING LYRICA 100 MG CAPSULE 1 CAPSULE ORALLY BID TAKING BENADRYL ALLERGY 25 MG TABLET 1 TABLET AT BEDTIME NEEDED ORALLY ONCE A DAY, NOTES: 30 MINUTES PRIOR TO INFUSION TAKING EPINEPHRINE 0.3 MG/0.3ML SOLUTION AUTO-INJECTOR DIRECTED INJECTION , NOTES: FOR ADVERSE REACTIO TAKING GAMUNEX-C 10 GM/100ML SOLUTION DIRECTED INJECTION , NOTES: 9 GMQ WEEK INFUSION TAKING HYDROCHLOROTHIAZIDE 12.5 MG CAPSULE 1 CAPSULE IN THE MORNING ORALLY ONCE A DAY TAKING FAMOTIDINE 20 MG TABLET 1 TABLET AT BEDTIME NEEDED ORALLY ONCE A DAY TAKING MAY USE CBD CREAM TOPICALLY DIRECTED TAKING TRAMADOL HCL 50 MG TABLET 1 ORALLY Q8H PRN MDD3 TAKING LIDOCAINE 4 % CREAM 1 APPLICATION NEEDED EXTERNALLY THREE TIMES A DAY TAKING FLUCONAZOLE 200 MG TABLET 1 TABLET ORALLY 1ST THREE DAYS OF EVERY MONTH TAKING GLUCOSAMINE 750 MG TABLET 1 CAPSULE WITH A MEAL ORALLY ONCE TIMES A DAY NOT-TAKING RANITIDINE HCL 150 MG CAPSULE 1 CAPSULE AT BEDTIME ORALLY ONCE A DAY NOT-TAKING GAVISCON 80-20 MG TABLET CHEWABLE 2 TABLETS AFTER MEALS AND AT BEDTIME NEEDED ORALLY FOUR TIMES A DAY, NOTES: RARELY NOT-TAKING MELATONIN 5 MG TABLET 1 TABLET AT BEDTIME NEEDED WITH FOOD ORALLY ONCE A DAY NOT-TAKING MUCINEX ALLERGY 180 MG TABLET 1 TABLET NEEDED ORALLY ONCE A DAY, NOTES: NEEDED MEDICATION LIST REVIEWED AND RECONCILED WITH THE PATIENT PAST MEDICAL HISTORY HTN HYPERCHOLESTREMIA FIBROMYALGIA RESTLESS LEG SYNDROME OSTEOARTHRITIS 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 ASTHMA COMMON VARIABLE IMMUNODEFICIENCY ONE FALLS THIS YEAR, NO MAJOR INJURIES. PATIENT STATED SHE DID NOT GO THE ER ALLERGIES PENICILLIN (FOR ALLERGIES USE ONLY): HIVES BELLARGAL: RASH BETA JEANNE (FOR ALLERGIES USE ONLY): DYSPNEA ERGOT ALKALOIDS: NAUSEA/VOMITING SOCIAL HISTORY GENERAL: TOBACCO USE ARE YOU A:NONSMOKER LATEX QUESTIONNAIRE LATEX ALLERGY : HAVE YOU EVER DEVELOPED ANY TYPE OF REACTION AFTER HANDLING LATEX PRODUCTS SUCH RUBBER GLOVES, CONDOMS, DIAPHRAGMS, BALLOONS, SOCKS, OR UNDERWEAR?NO LATEX ALLERGY : HAVE YOU EVER DEVELOPED ANY TYPE OF REACTION DURING OR AFTER DENTAL APPOINTMENT, VAGINAL/RECTAL EXAMINATION, SURGICAL PROCEDURE, OR ANY OTHER EXPOSURE?NO LATEX RISK : HAVE YOU EVER HAD ANY DIFFICULTY BREATHING OR HIVES AFTER EATING OR HANDLING ANY FRUITS, OR VEGETABLES; SUCH KIWI, BANANAS, STONE FRUITS, OR CHESTNUTSNO LATEX RISK : DO YOU HAVE A PREVIOUS PERSONAL HISTORY OF MORE THAN NINE SURGERIES, SPINA BIFIDA, OR REPEATED CATHERIZATIONS? YES - PLEASE INDICATE : > 9 SURGERIES LATEX RISK : ARE YOU FREQUENTLY EXPOSED TO LATEX PRODUCTS IN YOUR OCCUPATION?NO DATE ASKED : 03/06/2021 ALCOHOL USE: OCCASIONAL. ALCOHOL SCREENING DID YOU HAVE A DRINK CONTAINING ALCOHOL IN THE PAST YEAR?NO POINTS0 INTERPRETATIONNEGATIVE RECREATIONAL DRUG USE DRUG USE?NO CAFFEINE CAFFEINE USE?YES HOW OFTEN AND HOW MUCH? 1 CUP COFFEE/DAILY Z[employer]OASTRIAN [id number] ZOROASTRIANISM LANGUAGE LANGUAGES SPOKEN:YORUBA EDUCATION LEVEL OF EDUCATION:PROFESSIONAL SCHOOLS/MASTERS/PHD LEARNING BARRIERS / SPECIAL NEEDS CHANGE FROM LAST VISIT?NO BARRIERS TO LEARNING?NO HEARING IMPAIRED?NO VISION IMPAIRED?YES :CORRECTIVE LENSES COGNITIVELY IMPAIRED?YES READINESS TO LEARN?YES LEARNING PREFERENCES?NO LEARNING CAPABILITIES PRESENT?YES EMOTIONAL BARRIERS?NO SPECIAL DEVICES?NO WALNUT DEHYDRATOR OPERATOR NEEDED?NO DOMESTIC VIOLENCE DO YOU FEEL SAFE IN YOUR ENVIRONMENT?YES EXERCISE: WALKS, YOGA. - PFS REFERRAL NEEDED?NO CLERGY REFERRAL NEEDED?NO PUBLIC HEALTH REFERRAL NEEDED?NO HAS THE PATIENT BEEN EDUCATED REGARDING HIS/HER PLAN OF CARE?YES HAS THE PATIENT BEEN EDUCATED REGARDING PAIN, THE RISK FOR PAIN, THE IMPORTANCE OF EFFECTIVE PAIN MANAGEMENT, AND THE PAIN ASSESSMENT PROCESS?YES ADVANCE DIRECTIVE ADVANCE DIRECTIVE DISCUSSED WITH PATIENT:YES HEALTH CARE PROXY LYNDSEY [phone] REVIEW OF SYSTEMS CONSTITUTIONAL: ANY RECENT FEVER NO . CHILLS NO . WEIGHT CHANGE OF UNKNOWN REASONS NO . GASTROENTEROLOGY: NEW UNEXPLAINABLE CHANGES IN BOWEL CONTROL NO . CONSTIPATION NO . GENITOURINARY: ANY NEW CHANGE IN BLADDER CONTROL? NO . NEUROLOGY: NEW ONSET DIZZINESS OR NEUROLOGICAL CHANGES NOT MENTIONED NO . NEW NUMBNESS OR PAIN PATTERNS NOT MENTIONED AND PERTINENT TO TODAY'S VISIT NO . CARDIOLOGY: NEW CHEST PRESSURE NO . PATIENT DENIES NO . RESPIRATORY: UNEXPLAINABLE COUGH NO . NEW SHORTNESS OF BREATH NO . VITAL SIGNS WT 131.6 LBS, HT 62 IN, BMI 24.07 INDEX, BP 154/72 MM HG, REPEAT BP 130/62 MM HG, HR 80 /MIN, RR 18 /MIN, TEMP 97.1 F, OXYGEN SAT % 97%, SAFE IN ENV? (Y/N) YES, NA INITIALS AW [id number].RY SALINAS. EXAMINATION GENERAL EXAMINATION: GENERALAWAKE,ALERT ,PLEASANT . PSYCHAFFECT NORMAL . LUNGS:LUNG PEREZ ARE CLEAR TO AUSCULTATION BILATERALLY. GOOD MOVEMENT OF AIR . HEART:S1, S2 IN A REGULAR RATE AND RHYTHM. NO SIGNIFICANT MURMURS, RUBS OR GALLOPS NOTED . ASSESSMENTS SPONDYLOSIS OF LUMBAR REGION WITHOUT MYELOPATHY OR RADICULOPATHY - M47.816 (PRIMARY) TREATMENT SPONDYLOSIS OF LUMBAR REGION WITHOUT MYELOPATHY OR RADICULOPATHY CONTINUE TRAMADOL HCL TABLET, 50 MG, 1, ORALLY, Q8H PRN MDD3, 30 DAYS, 90, REFILLS 5 PROCEDURE CODES FA211 ESTABILISHED PATIENT [facility] FACILITY CHARGE DISPOSITION & COMMUNICATION FOLLOW UP 3 MONTHS (REASON: MEDICATION MANAGEMENT, THERAPEUTIC EFFECT FROM DIAGNOSTIC LUMBAR BLOCKS SEVERAL MONTHS AGO) ELECTRONICALLY SIGNED BY DARRIUS SNYDER ON 03/07/2021 AT 12:14 PM EDT DISCLAIMER : THIS IS A VISIT SUMMARY EXTRACTED FROM THE [employer] CHART. IT IS NOT A COPY OF THE [employer] PROGRESS NOTE. MERRILL
== END ==
LOC: M PAIN 11:30
PROVIDERS: ATTEND Nurse Practitioner Family
DX: M47.816 Spondylosis without myelopathy or radiculopathy, lumbar region (principal); G89.29 Other chronic pain; M79.7 Fibromyalgia; G25.81 Restless legs syndrome; J45.909 Unspecified asthma, uncomplicated; Z86.14 Personal history of Methicillin resistant Staphylococcus aureus infection; Z88.0 Allergy status to penicillin; Z88.8 Allergy status to other drugs, medicaments and biological substances; Z79.51 Long term (current) use of inhaled steroids; Z79.891 Long term (current) use of opiate analgesic; Z79.899 Other long term (current) drug therapy

== ENCOUNTER → 2021-05-22 | Outpatient (CLI) | payer MEDICARE, BC | LOC: M PAIN 10:15 | PROVIDERS: ATTEND Nurse Practitioner Family | DX: M47.816 Spondylosis without myelopathy or radiculopathy, lumbar region (principal); I10 Essential (primary) hypertension; E78.00 Pure hypercholesterolemia, unspecified; M79.7 Fibromyalgia; G25.81 Restless legs syndrome; J45.909 Unspecified asthma, uncomplicated; Z85.828 Personal history of other malignant neoplasm of skin; D83.9 Common variable immunodeficiency, unspecified; Z79.891 Long term (current) use of opiate analgesic; Z79.899 Other long term (current) drug therapy; Z88.0 Allergy status to penicillin; Z88.8 Allergy status to other drugs, medicaments and biological substances ==

== ENCOUNTER → 2022-05-29 | Outpatient (CLI) | payer MEDICARE, BC | LOC: M PAIN 14:00 | PROVIDERS: ATTEND Nurse Practitioner Family | DX: M47.816 Spondylosis without myelopathy or radiculopathy, lumbar region (principal); G89.29 Other chronic pain; Z86.14 Personal history of Methicillin resistant Staphylococcus aureus infection; I10 Essential (primary) hypertension; M79.7 Fibromyalgia; G25.81 Restless legs syndrome; J45.909 Unspecified asthma, uncomplicated; Z96.651 Presence of right artificial knee joint; Z88.0 Allergy status to penicillin; Z88.8 Allergy status to other drugs, medicaments and biological substances; Z79.51 Long term (current) use of inhaled steroids; Z79.899 Other long term (current) drug therapy ==

== ENCOUNTER → 2022-12-30 | Outpatient (CLI) | payer MEDICARE, BC | LOC: M PAIN 14:00 | PROVIDERS: ATTEND Nurse Practitioner Family | DX: M47.816 Spondylosis without myelopathy or radiculopathy, lumbar region (principal); G89.29 Other chronic pain; I10 Essential (primary) hypertension; M79.7 Fibromyalgia; G25.81 Restless legs syndrome; J45.909 Unspecified asthma, uncomplicated; Z86.14 Personal history of Methicillin resistant Staphylococcus aureus infection; Z88.0 Allergy status to penicillin; Z88.8 Allergy status to other drugs, medicaments and biological substances; Z79.51 Long term (current) use of inhaled steroids; Z79.899 Other long term (current) drug therapy ==

== ENCOUNTER → 2023-04-02 | Outpatient (CLI) | payer MEDICARE, BC | LOC: M PAIN 13:45 | PROVIDERS: ATTEND Nurse Practitioner Family | DX: M47.816 Spondylosis without myelopathy or radiculopathy, lumbar region (principal); G89.29 Other chronic pain; G47.30 Sleep apnea, unspecified; I10 Essential (primary) hypertension; M79.7 Fibromyalgia; G25.81 Restless legs syndrome; J45.909 Unspecified asthma, uncomplicated; Z86.14 Personal history of Methicillin resistant Staphylococcus aureus infection; Z96.651 Presence of right artificial knee joint; Z88.0 Allergy status to penicillin; Z88.8 Allergy status to other drugs, medicaments and biological substances; Z79.899 Other long term (current) drug therapy ==

== ENCOUNTER → 2023-12-29 | Outpatient (CLI) | payer MEDICARE, BC | LOC: M PAIN 14:00 | PROVIDERS: ATTEND Nurse Practitioner Family | DX: M47.816 Spondylosis without myelopathy or radiculopathy, lumbar region (principal); Z79.891 Long term (current) use of opiate analgesic; M79.10 Myalgia, unspecified site; M54.6 Pain in thoracic spine; G89.29 Other chronic pain; I10 Essential (primary) hypertension; E78.00 Pure hypercholesterolemia, unspecified; G25.81 Restless legs syndrome; M19.90 Unspecified osteoarthritis, unspecified site; J45.909 Unspecified asthma, uncomplicated; Z79.899 Other long term (current) drug therapy; Z88.0 Allergy status to penicillin; Z88.8 Allergy status to other drugs, medicaments and biological substances ==

== ENCOUNTER → 2024-03-02 | Outpatient (CLI) | payer MEDICARE, BC | LOC: M PAIN 10:00 | PROVIDERS: ATTEND Anesthesiology | DX: M47.814 Spondylosis without myelopathy or radiculopathy, thoracic region (principal); M54.6 Pain in thoracic spine; M79.10 Myalgia, unspecified site; M79.18 Myalgia, other site ==

== ENCOUNTER → 2024-05-26 | Outpatient (CLI) | payer MEDICARE, BC | LOC: M PAIN 14:00 | PROVIDERS: ATTEND Nurse Practitioner Family | DX: M54.6 Pain in thoracic spine (principal); G89.29 Other chronic pain; I10 Essential (primary) hypertension; E78.00 Pure hypercholesterolemia, unspecified; M79.7 Fibromyalgia; G25.81 Restless legs syndrome; M19.90 Unspecified osteoarthritis, unspecified site; J45.909 Unspecified asthma, uncomplicated; D83.9 Common variable immunodeficiency, unspecified; Z79.891 Long term (current) use of opiate analgesic; Z79.899 Other long term (current) drug therapy; Z88.0 Allergy status to penicillin; Z88.8 Allergy status to other drugs, medicaments and biological substances ==